=== PATIENT | male | born 1935 | race Caucasian/White ===

== ENCOUNTER → 2017-09-21 | Outpatient (RCR) | payer MEDICARE, OTHER ==
[2017-09-11 09:56] LABS: CLARITY,URINE CLEAR; COLOR,URINE YELLOW; GLUCOSE, URINE (UA) NEGATIVE (NEGATIVE); KETONES,URINE 2+ (NEGATIVE); LEUKOCYTE ESTERASE ,URINE 1+ (NEGATIVE); NITRITE,URINE NEGATIVE (NEGATIVE); PH,URINE 5 (5-9); PROTEIN,URINE 3+ (NEGATIVE); UROBILINOGEN,URINE NORMAL (NORMAL)
[2017-09-11 10:26] LABS: BILIRUBIN,URINE 1+ (NEGATIVE)
[2017-09-11 10:27] LABS: BACTERIA,URINE NEGATIVE /HPF; SQUAMOUS EPITHELIAL CELL,UR RARE /HPF
[~2017-09-21] MED LIST: ALBU8.5H2 IH; CIPR500T78 PO; WARF5TAB PO
== END | disposition home or self-care (01) ==
LOC: ONC 06-23 09:01
PROVIDERS: ATTEND Radiology Radiation Oncology
DX: Z51.0 Encounter for antineoplastic radiation therapy (principal); C61 Malignant neoplasm of prostate; R82.99 Other abnormal findings in urine
CPT/HCPCS: 77300; 77301; 77334; 77336; 77338; 77385; 77386; 81000; 87088; 99204

== ENCOUNTER 2018-09-11 14:39 | Outpatient (RCR) | payer MEDICARE, OTHER ==
[2018-08-06 15:29] LABS: INR 1.6 (0.8-1.4); PROTHROMBIN TIME PATIENT 19.9 SEC (12.2-14.7)
[2018-09-11 15:07] LABS: INR 1.2 (0.8-1.4); PROTHROMBIN TIME PATIENT 15.1 SEC (12.2-14.7)
[2018-09-21 14:22] LABS: PROTHROMBIN TIME PATIENT 35.5 SEC (12.2-14.7)
[2018-09-21 14:23] LABS: INR 3.4 (0.8-1.4)
== END 2018-11-04 | disposition home or self-care (01) ==
LOC: LAB FS 14:39
PROVIDERS: ATTEND Pediatrics
DX: I82.5Y9 Chronic embolism and thrombosis of unspecified deep veins of unspecified proximal lower extremity (principal)
CPT/HCPCS: 36415; 85610

== ENCOUNTER 2019-05-13 15:01 | Outpatient (RCR) | payer MEDICARE, OTHER ==
[2019-02-21 12:28] LABS: INR 3.7 (0.8-1.4); PROTHROMBIN TIME PATIENT 38.1 SEC (12.2-14.7)
[2019-05-13 16:00] LABS: INR 2.2 (0.8-1.4); PROTHROMBIN TIME PATIENT 25.7 SEC (12.2-14.7)
[2019-05-22] MEDS ORDERED: WARF-48 PO (15:52)
== END 2019-05-22 | disposition home or self-care (01) ==
LOC: LAB FS 15:01
PROVIDERS: ATTEND Pediatrics
DX: I82.5Y9 Chronic embolism and thrombosis of unspecified deep veins of unspecified proximal lower extremity (principal)
CPT/HCPCS: 36415; 85610

== ENCOUNTER 2019-05-22 12:37 | Inpatient (IN) | payer MEDICARE, OTHER ==
[~2019-05-22] VITALS: Ht 182 cm; Wt 101.2 kg
[2019-05-22] VITALS (7 sets, daily range): BP systolic 113–137; BP diastolic 57–84
--- NOTE | 2019-05-22 13:01 | ED General ---
General Stated Complaint: LT FOOT INJ History of Present Illness Date Seen by Provider: May 22, 2019 Time Seen by Provider: 13:00 Initial Comments Patient presenting to emergency Department for infection to his left foot. He thinks the infection started on his second toe on the top and has since spread to involve the other toes as well as his entire top of his foot and is spreading partially up his leg. He denies any fevers chills nausea vomiting or other systemic symptoms. 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 He says that he has normal sensation and can still walk on the foot. There is drainage from the top and bottom of his foot. Allergies and Home Medications Allergies Coded Allergies: Penicillins (Unverified Allergy, RASH, 05/08/13) Home Medications Albuterol 8.5 Gm Hfa.aer.ad, 1 PUFF IH Q4H PRN for SHORTNESS OF BREATH, (Reported) PRN SOB Ciprofloxacin HCl 500 Mg Tablet, 500 MG PO BID Prescribed by: MAIA LIAO on 05/16/13 1251 Patient Home Medication List Home Medication List Reviewed: Yes Review of Systems Review of Systems Constitutional: no symptoms reported EENTM: no symptoms reported Respiratory: no symptoms reported Cardiovascular: no symptoms reported Gastrointestinal: no symptoms reported Musculoskeletal: no symptoms reported Skin: other (cellulitis and abscess) Psychiatric/Neurological: No Symptoms Reported All Other Systems Reviewed Negative Unless Noted: Yes Past Ihiwwvv-Ttzuox-Agesda Hx Patient Social History Recent Foreign Travel: No Immunizations Up To Date Date of Pneumonia Vaccine: Apr 24, 2009 Date of Influenza Vaccine: Jan 22, 2013 Family Medical History Cancer 03 FATHER 03 MOTHER Family history: Diabetes mellitus 09 SISTER No Family History of: Abdominal aortic aneurysm Congenital heart disease Family history: Allergy Family history: Alzheimer's disease Family history: Arthritis Family history: Asthma Family history: Breast disease Family history: Cardiovascular disease Family history: Coronary thrombosis Family history: Gastrointestinal disease Family history: Glaucoma Family history: Hypertension Family history: Thyroid disorder Hereditary disease History of - respiratory disease Kidney disease Myocardial infarction Parkinson's disease Seizure disorder Physical Exam Vital Signs Vital Signs - First Documented 05/22/19 12:58 Temp 36.3 Pulse 84 Resp 18 B/P (MAP) 134/84 (101) Pulse Ox 96 O2 Delivery Room Air Capillary Refill : Height, Weight, BMI Height: 6'1.00" Weight: 249lbs. oz. 112.178331am; BMI Method: General Appearance: No Apparent Distress, WD/WN HEENT: PERRL/EOMI Neck: Supple Respiratory: No Respiratory Distress Cardiovascular: Regular Rate, Rhythm Gastrointestinal: Soft Back: Normal Inspection Extremity: Normal Capillary Refill (2+ dorsalis pedis pulse in both feet) Neurologic/Psychiatric: Alert, Oriented x3, No Motor/Sensory Deficits Skin: Other (cellulitis involving the top of the left foot and extends partially up his leg is warm and tender and erythematous. Wound drainage from the top of his foot between his second third toes as well as the bottom of his foot a fairly large blister. Drainage is thick and yellow and appears to be abscess drainage.) Progress/Results/Core Measures Suspected Sepsis SIRS Temperature: Pulse: Respiratory Rate: Laboratory Tests 05/22/19 13:50: White Blood Count 8.1 Blood Pressure / Mean: Laboratory Tests 05/22/19 13:50: Platelet Count 236 05/22/19 14:00: Creatinine 0.95, INR Comment 1.2, Total Bilirubin 0.5 Results/Orders Lab Results Laboratory Tests Test 05/22/19 13:50 05/22/19 14:00 Range/Units White Blood Count 8.1 4.3-11.0 10^3/uL Red Blood Count 4.34 L 4.35-5.85 10^6/uL Hemoglobin 13.2 L 13.3-17.7 G/DL Hematocrit 42 40-54 % Mean Corpuscular Volume 97 80-99 FL Mean Corpuscular Hemoglobin 30 25-34 PG Mean Corpuscular Hemoglobin Concent 32 32-36 G/DL Red Cell Distribution Width 13.6 10.0-14.5 % Platelet Count 236 130-400 10^3/uL Mean Platelet Volume 10.8 H 7.4-10.4 FL Neutrophils (%) (Auto) 77 H 42-75 % Lymphocytes (%) (Auto) 14 12-44 % Monocytes (%) (Auto) 7 0-12 % Eosinophils (%) (Auto) 2 0-10 % Basophils (%) (Auto) 0 0-10 % Neutrophils # (Auto) 6.2 1.8-7.8 X 10^3 Lymphocytes # (Auto) 1.1 1.0-4.0 X 10^3 Monocytes # (Auto) 0.6 0.0-1.0 X 10^3 Eosinophils # (Auto) 0.1 0.0-0.3 10^3/uL Basophils # (Auto) 0.0 0.0-0.1 10^3/uL Prothrombin Time 16.0 H 12.2-14.7 SEC INR Comment 1.2 0.8-1.4 Activated Partial Thromboplast Time 33 24-35 SEC Sodium Level 137 135-145 MMOL/L Potassium Level 4.5 3.6-5.0 MMOL/L Chloride Level 98 98-107 MMOL/L Carbon Dioxide Level 29 21-32 MMOL/L Anion Gap 10 5-14 MMOL/L Blood Urea Nitrogen 15 7-18 MG/DL Creatinine 0.95 0.60-1.30 MG/DL Estimat Glomerular Filtration Rate > 60 BUN/Creatinine Ratio 16 Glucose Level 163 H 70-105 MG/DL Calcium Level 9.2 8.5-10.1 MG/DL Corrected Calcium 9.7 8.5-10.1 MG/DL Total Bilirubin 0.5 0.1-1.0 MG/DL Aspartate Amino Transf (AST/SGOT) 29 5-34 U/L Alanine Aminotransferase (ALT/SGPT) 20 0-55 U/L Alkaline Phosphatase 97 40-136 U/L Total Protein 8.2 6.4-8.2 GM/DL Albumin 3.4 3.2-4.5 GM/DL My Orders Orders - TIGRE TOMAS DO Cbc With Automated Diff (05/22/19 13:15) Comprehensive Metabolic Panel (05/22/19 13:15) Blood Culture (05/22/19 13:15) Partial Thromboplastin Time (05/22/19 13:15) Protime With Inr (05/22/19 13:15) Foot 3 View Left (05/22/19 13:15) Vancomycin Injection (Vancomycin Injecti (05/22/19 13:30) Ceftriaxone For Iv Use (Rocephin For I (05/22/19 13:30) Wound Culture (05/22/19 13:00) Vancomycin Injection (Vancomycin Injecti (05/22/19 14:45) Medications Given in ED Current Medications Medications Dose Ordered Sig/Cade Route Start Time Stop Time Status Last Admin Dose Admin Ceftriaxone Sodium 2000 mg/ Sterile Water 20 ml @ 240 mls/hr ONCE ONCE IV 05/22/19 13:30 05/22/19 13:34 DC 05/22/19 14:46 240 MLS/HR Vital Signs/I&O 05/22/19 12:58 Temp 36.3 Pulse 84 Resp 18 B/P (MAP) 134/84 (101) Pulse Ox 96 O2 Delivery Room Air Capillary Refill : Progress Note : Progress Note Patient has fairly advanced cellulitis with an abscess. I do not think this will do well as an outpatient so I recommended admission for further IV antibiotics and likely surgical consultation. Patient agreed and I spoke to his primary care provider, Dr. Lara and he said he would not be able to take him at the [facility]. [place] [facility] is able to take patient and Dr. Encarnacion accepted. Patient transferred in stable condition. Departure Impression Primary Impression: Cellulitis and abscess of foot Disposition: ADMITTED INPATIENT Condition: Stable Transfer Transfer Reason: Exceeds level of care Time Spoke to Accepting Phy: 14:30 Transfer Facility: [facility] Method of Transfer: EMS Departure-Patient Inst. Referrals: ALANNAH LARA MD (PCP/Family) Primary Care Physician TIGRE TOMAS DO May 22, 2019 13:00
[2019-05-22] MEDS ORDERED: cefTRIAXone FOR IV USE 2,000 MG in WATER (STERILE) FOR INJECTION 20 ML IV ONE (13:30)
[2019-05-22] MEDS ORDERED: VANCOMYCIN INJECTION 1,000 MG in NS (IVPB) 250 ML IV SCH (13:30)
--- NOTE | 2019-05-22 13:40 | NUR ---
[id number] Pt triaged and attempted IV attempt x 4 without success, blood returns, unable to thread, and unable to flush into vein. Report to Estela STORY, Clinical Coordinator for assist with IV.
--- NOTE | 2019-05-22 14:00 | NUR ---
IV start per Alexandrea Squires RN. Labs drawn.
--- NOTE | 2019-05-22 14:04 | Diagnostic Imaging Report ---
EXAMINATION: Left foot at 1:40 p.m. INDICATION: Foot pain. Three views were obtained. There are no prior studies available for comparison. There is no fracture, dislocation or acute bony abnormality evident. The Lisfranc joint seems fairly well-maintained. There may be mild soft tissue edema over the dorsum of the forefoot. There is no radiopaque foreign body identified however. IMPRESSION: 1. There is a question of mild soft tissue edema involving the dorsum of the forefoot. Clinical follow-up is recommended. 2. There is no acute bony abnormality appreciated. Dictated by: Dictated on workstation # [id number]
[2019-05-22 14:07] LABS: WHITE BLOOD COUNT 8.1 10^3/uL (4.3-11.0)
[2019-05-22 14:08] LABS: BASOPHILS % (AUTO) 0 % (0-10); EOSINOPHILS # (AUTO) 0.1 10^3/uL (0.0-0.3); EOSINOPHILS % (AUTO) 2 % (0-10); HEMATOCRIT 42 % (40-54); HEMOGLOBIN 13.2 G/DL (13.3-17.7); LYMPHOCYTES # (AUTO) 1.1 X 10^3 (1.0-4.0); LYMPHOCYTES % (AUTO) 14 % (12-44); MEAN CORPUSCULAR HEMOGLOBIN 30 PG (25-34); MEAN CORPUSCULAR HGB CONC 32 G/DL (32-36); MEAN CORPUSCULAR VOLUME 97 FL (80-99); MEAN PLATELET VOLUME 10.8 FL (7.4-10.4); MONOCYTES # (AUTO) 0.6 X 10^3 (0.0-1.0); MONOCYTES % (AUTO) 7 % (0-12); NEUTROPHILS # (AUTO) 6.2 X 10^3 (1.8-7.8); NEUTROPHILS % (AUTO) 77 % (42-75); PLATELET COUNT 236 10^3/uL (130-400); RED CELL DISTRIBUTION WIDTH 13.6 % (10.0-14.5)
[2019-05-22 14:29] LABS: INR 1.2 (0.8-1.4)
--- NOTE | 2019-05-22 14:30 | NUR ---
[id number] Numerous calls made to [facility] to attempt speaking with a hospitalist for request for an admission. Pt wants to go to [place] as provider is Dr Parks. At the time of arrival and seeing the need for an admission the [facility] was no beds available. Numerous return calls made by RN for lack of anyone answering phone.
[2019-05-22 14:35] LABS: BILIRUBIN,TOTAL 0.5 MG/DL (0.1-1.0); BUN/CREATININE RATIO 16; CALCIUM 9.2 MG/DL (8.5-10.1); CARBON DIOXIDE 29 MMOL/L (21-32); CHLORIDE 98 MMOL/L (98-107); CREATININE SERUM 0.95 MG/DL (0.60-1.30); GFR ESTIMATED > 60; GLUCOSE 163 MG/DL (70-105); POTASSIUM 4.5 MMOL/L (3.6-5.0); SODIUM 137 MMOL/L (135-145)
--- NOTE | 2019-05-22 14:35 | NUR ---
Advised Dr Wells of Dr Parks's clinic number and need to call him. The hospitalist states Dr Parks handles all his own admissions. Dr parks was reached and declined the admit to [place] reporting he is not set up to handle this type care over there at this time. Pt was notified. Estela STORY, Clinical Coordinator called to Kerri Vizcarra RN then engineering design supervisor Laura STORY. Pt will have a bed made available at [facility] and may call the hospitalist.
[2019-05-22 14:36] LABS: ALANINE AMINOTRANSFERASE 20 U/L (0-55); ALBUMIN 3.4 GM/DL (3.2-4.5); ALKALINE PHOSPHATASE 97 U/L (40-136); TOTAL PROTEIN 8.2 GM/DL (6.4-8.2)
[2019-05-22] MEDS ORDERED: VANCOMYCIN INJECTION 1,000 MG in NS (IVPB) 250 ML IV ONE (14:45)
--- NOTE | 2019-05-22 14:45 | NUR ---
Pt pending transfer to [place]. Awaiting a room assignment and this pt is 3rd transfer out of ER and remains pending.
[2019-05-22] MEDS ORDERED: polyethylene glycoL POWDER 17 GM (MIRALAX) PACK PO PRN (15:30)
[2019-05-22] MEDS ORDERED: ONDANSETRON 4 MG (ZOFRAN) ORAL DISSOLVE TAB PO PRN (15:30)
[2019-05-22] MEDS ORDERED: ACETAMINOPHEN 325 MG TABLET PO PRN (15:30)
[2019-05-22] MEDS ORDERED: VANCOMYCIN INJECTION 0.1 MG in NS (IVPB) 250 ML IV SCH (15:30)
[2019-05-22] MEDS ORDERED: BISACODYL 10 MG SUPP (DULCOLAX) PR PRN (15:30)
[2019-05-22] MEDS ORDERED: CALCIUM CARBONATE 500 MG (TUMS) TAB.CHEW PO PRN (15:30)
--- NOTE | 2019-05-22 15:30 | NUR ---
Patient resting quietly. No visitor currently present.
[2019-05-22] MEDS ORDERED: WARF-48 PO (15:52)
--- NOTE | 2019-05-22 16:02 | NUR ---
CR 0.92; CR CL > 60; WT 100.6 KG; VANCO 2000 MG IV BOLUS THEN 1250 MG IV Q12H; TROUGH AFTER 3RD DOSE
[2019-05-22] MEDS ORDERED: VANCOMYCIN 1 GM/NS 250 ML IVPB IV NR ×4 (16:30→18:45)
--- NOTE | 2019-05-22 16:30 | NUR ---
Pending transfer, pt is resting with eyes closed and warm blanket provided. Antibiotic almost infused.
--- NOTE | 2019-05-22 17:35 | NUR ---
Pt transferred at this time to [place] [facility] per [facility]. Pt is stable. Pt has rec'd Rocephin 2 gm and Vancomycin 1 gm in ER prior.
--- NOTE | 2019-05-22 18:42 | NUR ---
REC'D PER CART VIA EMS FROM [facility] ED. RESTING COMFORTABLY. HOSPITAL PROCEDURE REVIEWED. ASSESSMENT AND ADMISSION TO BE DONE BY ONCOMING STAFF.
[2019-05-22] MEDS ORDERED: CATHETER FLUSH 10 ML SYR IV PRN (19:00)
[2019-05-22] MEDS ORDERED: warFARin 5 MG (COUMADIN) TAB PO NR (20:00)
[2019-05-22] MEDS: LACTOBACILLUS ACIDOPHILUS (PROBIOTIC) CAPSULE PO SCH (21:28)
[2019-05-22] MEDS: MELATONIN 3 MG TABLET PO PRN (21:29)
[2019-05-22] MEDS: CATHETER FLUSH 10 ML SYR IV SCH (21:34)
[2019-05-23] VITALS: BP 110/59
[2019-05-23 04:00] VITALS: BP 111/63
[2019-05-23] MEDS ORDERED: VANCOMYCIN 1250 MG/NS 250 ML IVPB IV SCH ×6 (05:00→07:00)
[2019-05-23] MEDS: CATHETER FLUSH 10 ML SYR IV SCH ×3 (06:09→22:00)
[2019-05-23] MEDS: LACTOBACILLUS ACIDOPHILUS (PROBIOTIC) CAPSULE PO SCH ×3 (06:09→18:43)
[2019-05-23 06:14] LABS: RED CELL DISTRIBUTION WIDTH 14.1 % (10.0-14.5); WHITE BLOOD COUNT 7.8 10^3/uL (4.3-11.0)
[2019-05-23 06:35] LABS: BUN/CREATININE RATIO 20; CALCIUM 8.9 MG/DL (8.5-10.1); CARBON DIOXIDE 22 MMOL/L (21-32); CHLORIDE 103 MMOL/L (98-107); CREATININE SERUM 0.82 MG/DL (0.60-1.30); GFR ESTIMATED > 60; GLUCOSE 130 MG/DL (70-105); POTASSIUM 4.1 MMOL/L (3.6-5.0); SODIUM 138 MMOL/L (135-145)
[2019-05-23 08:00] VITALS: BP 112/67
--- NOTE | 2019-05-23 08:24 | NUR ---
PATIENT VERIFIED HE TAKES WARFARIN 5MG EVERY EVENING. HE STATES HE DOES NOT TAKE ANY OTHER PRESCRIPTION MEDICATION OR ANYTHING OTC.
--- NOTE | 2019-05-23 09:53 | History & Physical-Hospitalist ---
History of Present Illness HPI/Chief Complaint Patient is an 84-year-old male with a past medical history of DVT on chronic anticoagulation who presented to the emergency department with chief complaint of left foot wound. He states the symptoms started about 2 weeks ago. He been treating with alcohol and hydrogen peroxide without improvement. He fell week ago. Since then he has been achy which he attributed to the fall. He denies any fevers or chills. He has had previous wound infections like this. He does have a wound on his right toe as well. In the emergency room he was found to have a large draining abscess with cellulitis. He did not meet any sepsis criteria. This morning her reports feeling well but weak. He denies any pain. Source: patient Date Seen 05/23/19 Time Seen by a Provider: 09:49 Attending Physician Ester Clark MD PCP Vin Parks MD Referring Physician Date of Admission May 22, 2019 at 15:00 Home Medications & Allergies Home Medications Reviewed patient Home Medication Reconciliation performed by pharmacy medication reconciliations nitriles lab technician and/or nursing. Patients Allergies have been reviewed. Allergies Allergies Coded Allergies Penicillins (Unverified Allergy, Unknown, RASH, 05/22/19) Past Babqoii-Arxfkg-Gifwho Hx Past Med/Social Hx: Reviewed Nursing Past Med/Soc Hx Patient Social History Alcohol Use: Denies Use Alcohol Beverage of Choice: Other Recreational Drug Use: No Smoking Status: Former Smoker Former Smoker, Quit: Apr 24, 2009 Physical Abuse Screen: No Sexual Abuse: No Recent Foreign Travel: No Contact w/other who traveled: No Recent Hopitalizations: No Recent Infectious Disease Expo: No Immunizations Up To Date Date of Pneumonia Vaccine: Apr 24, 2009 Date of Influenza Vaccine: Apr 24, 2019 Seasonal Allergies Seasonal Allergies: No Past Medical History Cardiac: Deep Vein Thrombosis Cancer: Prostate Did You Recieve Any Treatments: Yes What Type of Treatment Did You: Radiation History of Blood Disorders: Yes (ON COUMADIN R/T DVT) Family History Reviewed Nursing Family Hx Cancer 03 FATHER 03 MOTHER Family history: Diabetes mellitus 09 SISTER No Family History of: Abdominal aortic aneurysm Congenital heart disease Family history: Allergy Family history: Alzheimer's disease Family history: Arthritis Family history: Asthma Family history: Breast disease Family history: Cardiovascular disease Family history: Coronary thrombosis Family history: Gastrointestinal disease Family history: Glaucoma Family history: Hypertension Family history: Thyroid disorder Hereditary disease History of - respiratory disease Kidney disease Myocardial infarction Parkinson's disease Seizure disorder Review of Systems Constitutional: No chills, No fever; weakness EENTM: no symptoms reported Respiratory: No cough; short of breath (chronic) Cardiovascular: no symptoms reported Gastrointestinal: no symptoms reported Genitourinary: no symptoms reported Musculoskeletal: no symptoms reported Skin: see HPI Psychiatric/Neurological: No Symptoms Reported Physical Exam Physical Exam Vital Signs Vital Signs - First Documented 05/22/19 12:58 Temp 36.3 Pulse 84 Resp 18 B/P (MAP) 134/84 (101) Pulse Ox 96 O2 Delivery Room Air Capillary Refill : Less Than 3 SecondsLess Than 3 Seconds Height, Weight, BMI Height: 6'1.00" Weight: 249lbs. oz. 112.965781gz; 30.55 BMI Method: General Appearance: No Apparent Distress, WD/WN HEENT: Moist Mucous Membranes; No Scleral Icterus (L), No Scleral Icterus (R) Neck: Normal Inspection, Supple Respiratory: Lungs Clear, No Respiratory Distress Cardiovascular: Regular Rate, Rhythm, No Murmur Gastrointestinal: Normal Bowel Sounds, Non Tender, Soft Extremity: Other (right 2nd digit with non draining wound at tip, left foot with significant edema and draining wound) Neurologic/Psychiatric: Alert, Oriented x3, Normal Mood/Affect Skin: Normal Color, Warm/Dry Results Results/Procedures Labs Laboratory Tests 05/22/19 13:50 05/22/19 14:00 05/23/19 05:58 Patient resulted labs reviewed. Imaging: Reviewed Imaging Report Assessment/Plan Admission Diagnosis Cellulitis Admission Status: Inpatient Order (span 2 midnights) Reason for Inpatient Admission: iv abx, mri, await culutures, may need surgery Assessment and Plan Cellulitis Significant wound on left foot with draining abscess Concern for deeper infection, MRI ordered Does nto meet sepsis criteria at this time Will await blood cultures Continue IV abx Podiatry consulted, appreciate recs Discussed with Dr Ocampo who will see him in consultation history of DVT INR subtherapeutic, will continue Warfarin If need operative repair will hold Weakness PT/OT after MRI Hyperglycemia No known history of DM SSI Diagnosis/Problems Diagnosis/Problems (1) Cellulitis and abscess of foot Status: Acute (2) Weakness Status: Acute (3) Hyperglycemia Status: Acute Clinical Quality Measures DVT/VTE Risk/Contraindication: Risk Factor Score Per Nursin RFS Level Per Nursing on Admit: 4+=Very High ESTER CLARK MD May 23, 2019 09:53
[2019-05-23 12:00] VITALS: BP 108/72
[2019-05-23] MEDS: VANCOMYCIN 1250 MG/NS 250 ML IVPB IV SCH ×2 (13:22)
--- NOTE | 2019-05-23 13:53 | Diagnostic Imaging Report ---
Exam: MRI left foot without contrast. Date: May 23, 2019. Indication: 84-year-old male, left foot pain. Comparison: None. Technique: Multiple noncontrast MRI sequences of the left foot were obtained. Findings: There are limitations of the exam relating to low mdwnkt-lz-pfaez ratio, especially on the long axis STIR sequence. There is a large focal fluid collection measuring approximately 5.1 cm in proximal to distal extent, 2.7 cm in volar to dorsal extent, and 3.3 cm in transverse extent which is centered at the level of the second and third metatarsophalangeal joints. There is subtle edema-like signal in the proximal aspect of the third proximal phalanx without clear T1 marrow signal loss or bone destruction to specifically diagnose osteomyelitis. Very early findings of osteomyelitis are a consideration. There is no additional identified clear bone marrow signal abnormality. There is a trace to small first metatarsophalangeal joint effusion. There is no additional joint effusion. There is predominantly dorsal subcutaneous edema. 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 Impression: 1. Dorsal fluid collection centered at the level of the second and third metatarsophalangeal joints which is nonspecific and potentially could reflect abscess, hematoma, or other fluid collection. 2. Nonspecific low level edema-like signal in the proximal aspect of the third proximal phalanx without clear T1 marrow signal loss or bone destruction to specifically diagnose osteomyelitis. 3. Trace to small first metatarsophalangeal joint effusion. 4. 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 Dictated by: Dictated on workstation # [id number]
--- NOTE | 2019-05-23 14:30 | Physical Therapy Evaluation ---
PT Evaluation-General Medical Diagnosis Admission Date May 22, 2019 at 15:00 Medical Diagnosis: Left Foot Cellulitis Onset Date: May 22, 2019 Therapy Diagnosis Therapy Diagnosis: Deconditioning Height/Weight Height (Feet): 6 Height (Inches): 1.00 Weight (Pounds): 249 Precautions Precautions/Isolations: Fall Prevention, Standard Precautions Weight Bear Status Right Lower Extremity: Right Weight Bearing/Tolerated Left Lower Extremity: Left Weight Bearing/Tolerated Referral Physician: Eduardo Reason for Referral: Evaluation/Treatment Medical History Additional Medical History Prostate Cancer, history of DVT Current History Patient presented to ER with left foot injury. Patient states that the infection in his foot started about two weeks ago and that it was only on one toe and it has only grown. Reviewed History: Yes Social History Home: Single Level Current Living Status: Alone Entry Into Home: Level Entry PT Steps Into Home: 0 PT Steps Inside Home: 0 Prior Prior Level of Function SCALE: Activities may be completed with or without assistive devices. 7-Nipdkoaizx-qlonzud completes the activity by him/herself with no assistance from a helper. 5-Set-up or Clean-up Assistance-helper sets up or cleans up; patient completes activity. [place] assists only prior to or following the activity. 4-Supervision or Touching Assistance-helper provides verbal cues and/or touching/steadying and/or contact guard assistance as patient completes activity. Assistance may be provided throughout the activity or intermittently. 3-Partial/Moderate Assistance-helper does LESS THAN HALF the effort. [place]lock lifts, holds or supports trunk or limbs, but provides less than half the effort. 2-Substantial/Maximal Assistance-helper does MORE THAN HALF the effort. [place] lifts or holds trunk or limbs and provides more than half the effort. 6-Pvjrwqflc-vxffue does ALL the effort. Patient does none of the effort to complete the activity. Or, the assistance of 2 or more helpers is required for the patient to complete the activity. If activity was not attempted, code reason: 7-Patient Refused. 9-Not Applicable-not attempted and the patient did not perform the activity before the current illness, exacerbation or injury. 10-Not Attempted due to Environmental Limitations-(lack of equipment, weather restraints, etc.). 88-Not Attempted due to Medical Conditions or Safety Concerns. Bed Mobility: 6 Transfers (B,C,W/C): 6 Gait: 6 Indoor Mobility (Ambulation): Independent Prior Devices Use: None PT Evaluation-Current Subjective Patient is agreeable to therapy at this time and reports no pain. Pain Numeric Pain Scale: 0-No Pain Objective Patient Orientation: Normal For Age Attachments: Other-See Comments (Surgical shoe - left foot), IV ROM/Strength ROM Lower Extremities BLE WFL. Strength Lower Extremities BLE WFL Integumentary/Posture Integumentary See nursing notes Bowel Incontinence: No Bladder Incontinence: No Neuromuscular (Tone, Coordination, Reflexes) Grossly intact. Sensory Vision: Functional Hearing: Functional Sensation Right Lower Extremit: Intact Sensation Left Lower Extremity: Intact Sensation Lower Extremities Patient reports no numbness and tingling in BLE. Transfers Sit to Stand (QC): 4 (CGA for safety) Gait Does the Patient Walk?: Yes Mode of Locomotion: Walk Anticipated Mode of Locomotion: Walk Walk 10 feet (QC): 4 Walk 50 ft with 2 Turns(QC): 4 Walk 150 ft (QC): 4 Distance: 300' Gait Assistive Device: FWW Comments/Gait Description CGA for safety. Wheelchair Training Does the Pt Use a Wheelchair?: No Balance Sitting Static: Normal Sitting Dynamic: Normal Standing Static: Normal Standing Dynamic: Normal Assessment/Needs Patient walked at a decreased gait speed but was steady during gait. Patient agreed to use walker at this time since it was the first time walking with the surgical shoe on left foot. Rehab Potential: Fair PT Java Developer With Security Clearance Goals Fpc Goals PT Fpc Goals Time Frame: May 30, 2019 Roll Left & Right (QC): 6 Sit to Lying (QC): 6 Lying-Sitting on Side/Bed(QC): 6 Sit to Stand (QC): 6 Chair/Zln-wn-Ajmai Xfer(QC): 6 Toilet Transfer (QC): 6 Does the Patient Walk: Yes Walk 10 feet (QC): 6 Walk 50ft with 2 Turns (QC): 6 Walk 150 ft (QC): 6 Does the Pt use WC or Scooter?: No PT Plan Problem List Problem List: Activity Tolerance, Functional Strength, Safety, Gait, Transfer, Bed Mobility Treatment/Plan Treatment Plan: Continue Plan of Care Treatment Plan: Education, Functional Activity Nishant, Functional Strength, Gait, Safety, Therapeutic Exercise, Transfers Treatment Duration: May 31, 2019 Frequency: 6 times per week Estimated Hrs Per Day: .25 hour per day Patient and/or Family Agrees t: Yes Safety Risks/Education Patient Education: Gait Training, Transfer Techniques Teaching Recipient: Patient Teaching Methods: Discussion Response to Teaching: Reinforcement Needed Discharge Recommendations Therapy Discharge Recommendati: Home & Family Time/GCodes Time In: 1349 Time Out: 1406 Total Billed Treatment Time: 17 Total Billed Treatment 1 visit EVL 17 ESCOBAR HUERTA PT May 23, 2019 14:30
[2019-05-23] MEDS: cefTRIAXone FOR IV USE 1,000 MG in WATER (STERILE) FOR INJECTION 10 ML IV SCH (15:00)
--- NOTE | 2019-05-23 15:28 | NUR ---
CM/SS: Visited with pt and daughter as to plan for discharge Plan: Undetermined at this time. Summary: Options discussed of Skilled facility and home care. Pt has been living at home independently, prior to hospital stay. Pt's daughter encourages him to move to [place]. Pt reports he is not interested in that. Pt is open to whatever options he would benefit from. This worker will follow up with pt once a discharge plan has been determined.
[2019-05-23 16:00] VITALS: BP 117/63
--- NOTE | 2019-05-23 18:18 | Podiatry Progress Note ---
Standard Progress Note Progress Notes/Assess & Plan Date Seen by a Provider: May 23, 2019 Time Seen by a Provider: 18:16 Progress/Assessment & Plan Consult Dictated. Incision and drainage procedure tomorrow morning. Xrays ordered for right foot (chronic R2 toe wound). Final Diagnosis Neuropathy, Abscess left foot, possible osteomyelitis left 3rd toe, Unstageable ulcer right 2nd toe. CECY ESTEVEZ DPM May 23, 2019 18:18
[2019-05-23] MEDS: warFARin 5 MG (COUMADIN) TAB PO SCH (18:42)
[2019-05-23 20:00] VITALS: BP 123/58
[2019-05-23] MEDS: MELATONIN 3 MG TABLET PO PRN (20:42)
--- NOTE | 2019-05-23 21:01 | CONSULTATION REPORT ---
DATE OF SERVICE: 05/23/2019 REASON FOR CONSULTATION: Cellulitis, left foot. HISTORY OF PRESENT ILLNESS: This 84-year-old was seen in the Emergency Department in [place] and was subsequently transferred to [facility]. He has history of deep venous thrombosis on chronic anticoagulation. He said he has had an open wound or problems with the left foot for the last two weeks. He has tried topical treatment with alcohol and hydrogen peroxide without improvement. He said he fell about a week ago, I guess this might have been started this problem. He denies any current fever, chills, nausea or vomiting. He also is complaining about right second toe, which he apparently tried to trim his toenail and caused some bleeding and some disruption to the skin. He has tried to do wound care on the right second toe as well. PAST MEDICAL HISTORY: Include deep venous thrombosis, prostate cancer. He denies diabetes. ALLERGIES: He is allergic to PENICILLIN. PHYSICAL EXAMINATION: LOWER EXTREMITY EXAMINATION: The patient has 2/4 pedal pulses on the left, 1/4 dorsalis pedis pulse, and 2/4 posterior tibial pulse on the right. Light touch sensation is diminished significantly, bilateral forefoot. DERMATOLOGIC: The patient has ascending erythema extending from the forefoot to the anterior ankle and leg. There is some necrosis associated with the dorsal aspect of the left third digit. There is a significant amount of edema associated with the left forefoot. There is a probing sinus tract from the second webspace of the left foot extending approximately 4 to 5 cm with purulent discharge. There is a dry eschar to the distal aspect of the right second toe with some erythema. No proximal streaking noted. The patient has 4/5 muscle strength to the four major quadrants of the foot bilaterally. RADIOLOGY: The MRI indicated that: 1. There was a dorsal fluid collection in the center of the level of the second and third metatarsophalangeal joints, which is nonspecific and potentially could reflect abscess, hematoma or fluid collection. 2. Nonspecific low level edema like signal in the proximal aspect of the third proximal phalanx without clear T1 marrow signal loss or bone destruction to specify diagnosis of osteomyelitis. 3. Trace to small first metatarsophalangeal joint effusion. 4. 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 ASSESSMENT: 1. Deep abscess, left forefoot cellulitis, neuropathy, left foot. 2. 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 PLAN: Various treatment options were discussed with the patient and daughter today. He will be going to surgery in the morning for incision and drainage type procedure. He just finished meal and he will be taken off his Coumadin at this point. No guarantees were extended to the patient. Informed consent will be explained and signed to the patient. Today, the abscess was violated with a sterile cotton tip applicator. Some drainage was appreciated at bedside. The area was cleansed with sterile saline. A dilute Betadine soaked 4 x 4 was introduced into the lesion and dilute Betadine dressing applied with ABD and Kerlix. I ordered a three views x-rays of the right lower extremity to evaluate the right second toe. Job ID: [id number] DocumentID: [id number] Dictated Date: 05/23/2019 18:26:27 Supervisor Wet Pour Date: 05/23/2019 21:00:28 Dictated By: CECY ESTEVEZ DPM
--- NOTE | 2019-05-23 21:13 | Diagnostic Imaging Report ---
INDICATION: Chronic wound tip of the second digit. EXAMINATION: Right foot dated 05/23/2019. FINDINGS: Three views of the foot. There is diffuse irregularity seen about the distal toes, perhaps overlying gauze material obscuring fine bony detail. Flexion deformity of the second and third digits limits evaluation of the distal aspects; however, there appears to be focal irregularity or erosive change throughout the distal tip of the second phalanx and likely third distal phalanx suggesting osteomyelitis. Diffuse degenerative findings otherwise noted. IMPRESSION: 1. Suspicion of osteomyelitis in the distal tip of the second and third distal phalanges with limitations as above. 2. Not mentioned above, there may be some subcutaneous air diffusely throughout the forefoot overlying the proximal phalanges especially from the second through the fourth toes versus overlying artifact, correlate clinically. Dictated by: Dictated on workstation # [id number]
[2019-05-24] VITALS (12 sets, daily range): BP systolic 86–141; BP diastolic 57–80
[2019-05-24] MEDS: VANCOMYCIN 1250 MG/NS 250 ML IVPB IV SCH ×4 (01:00→15:39)
[2019-05-24] MEDS: CATHETER FLUSH 10 ML SYR IV SCH ×3 (03:22→21:18)
[2019-05-24] MEDS: LACTOBACILLUS ACIDOPHILUS (PROBIOTIC) CAPSULE PO SCH ×3 (03:23→18:12)
[2019-05-24 05:53] LABS: HEMOGLOBIN 11.9 G/DL (13.3-17.7); MEAN PLATELET VOLUME 9.8 FL (7.4-10.4); RED CELL DISTRIBUTION WIDTH 14.2 % (10.0-14.5)
[2019-05-24 06:06] LABS: BUN/CREATININE RATIO 16; CALCIUM 8.7 MG/DL (8.5-10.1); CARBON DIOXIDE 28 MMOL/L (21-32); CHLORIDE 103 MMOL/L (98-107); GFR ESTIMATED > 60; GLUCOSE 127 MG/DL (70-105); POTASSIUM 4.1 MMOL/L (3.6-5.0); SODIUM 139 MMOL/L (135-145)
[2019-05-24 06:08] LABS: INR 1.3 (0.8-1.4)
[2019-05-24] MEDS ORDERED: PROPOFOL INJECTION 50 ML IV ONE ×2 (10:31→12:48)
[2019-05-24] MEDS ORDERED: fentaNYL INJECTION 100 MCG/2 ML AMP ONE (10:31)
[2019-05-24] MEDS ORDERED: MIDAZOLAM 2 MG/2 ML (VERSED) VIAL ONE (10:35)
[2019-05-24] MEDS ORDERED: LIDOCAINE PF 2% 5 ML (XYLOCAINE) VIAL ONE (10:35)
[2019-05-24] MEDS ORDERED: LACTATED RINGERS 1,000 ML IV PRN (10:43)
--- NOTE | 2019-05-24 11:25 | Progress Note - Hospitalist ---
Subjective HPI/CC On Admission Date Seen by Provider: May 24, 2019 Time Seen by Provider: 11:22 Patient is an 84-year-old male with a past medical history of DVT on chronic anticoagulation who presented to the emergency department with chief complaint of left foot wound. He states the symptoms started about 2 weeks ago. He been treating with alcohol and hydrogen peroxide without improvement. He fell week ago. Since then he has been achy which he attributed to the fall. He denies any fevers or chills. He has had previous wound infections like this. He does have a wound on his right toe as well. In the emergency room he was found to have a large draining abscess with cellulitis. He did not meet any sepsis criteria. This morning her reports feeling well but weak. He denies any pain. Subjective/Events-last exam Pt reports feeling well. No complaints. Has not got to the OR yet. Objective Exam Vital Signs Vital Signs Date Time Temp Pulse Resp B/P (MAP) Pulse Ox O2 Delivery O2 Flow Rate FiO2 05/24/19 07:19 35.8 67 18 117/67 (84) 94 Room Air Capillary Refill : Less Than 3 SecondsLess Than 3 Seconds General Appearance: No Apparent Distress, WD/WN Respiratory: Lungs Clear, No Respiratory Distress Cardiovascular: Regular Rate, Rhythm, No Murmur Extremity: Other (left foot wrapped in young bandage with drainage apparant through layers of bandages, erythema noted) Neurologic/Psychiatric: Alert, Oriented x3 Results/Procedures Lab Laboratory Tests 05/24/19 05:28 Patient resulted labs reviewed. Imaging: Reviewed Imaging Report Assessment/Plan Assessment and Plan Assess & Plan/Chief Complaint Cellulitis Significant wound on left foot with draining abscess MRI shows abscess and cellulitis, osteomyelitis not ruled out Blood cultures NGTD Wound culture with staph Continue IV abx Podiatry consulted, appreciate recs OR today history of DVT Hold Warfarin until ok with Dr Ocampo Weakness PT/OT after surgery Hyperglycemia No known history of DM SSI Diagnosis/Problems Diagnosis/Problems (1) Cellulitis and abscess of foot Status: Acute (2) Weakness Status: Acute (3) Hyperglycemia Status: Acute Clinical Quality Measures DVT/VTE Risk/Contraindication: Risk Factor Score Per Nursin RFS Level Per Nursing on Admit: 4+=Very High ESTER ADAMSON MD May 24, 2019 11:25
--- NOTE | 2019-05-24 11:42 | Physical Therapy Progress Note ---
Therapy Progress Note Patient in surgery at this time. Will check back in the PM. [id number] ESCOBAR HUERTA PT May 24, 2019 11:42
[2019-05-24] MEDS ORDERED: TROUGH ORDER-PHARMACY XX NR (12:00)
[2019-05-24] MEDS ORDERED: KETAMINE/NaCl 50 MG/5 ML SYRINGE (ED ONLY) ONE (12:00)
[2019-05-24] MEDS ORDERED: ONDANSETRON 4 MG/2 ML (SDV) Z0FRAN ONE (12:04)
[2019-05-24] MEDS ORDERED: BUPIVACAINE 0.5% 30 ML (SENSORCAINE) VIAL ONE (12:19)
--- NOTE | 2019-05-24 13:26 | Progress Note-Post Operative ---
Post-Operative Progess Note Surgeon (s)/Net Developer Architect (s) Surgeon CECY ESTEVEZ DPM Net Developer Architect: None Pre-Operative Diagnosis Deep Abscess, Osteomylitis 3rd toe left Post-Operative Diagnosis Same Procedure & Operative Findings Date of Procedure 05/24/19 Procedure Performed/Findings Amputation of left 3rd toe, Incision and Drainage left foot Anesthesia Type MAC Estimated Blood Loss Estimated blood loss (mL): Minimal Specimens/Packing Specimens Removed left 3rd toe Packin/2" Iodoform CECY ESTEVEZ DPM May 24, 2019 13:26
[2019-05-24] MEDS ORDERED: HYDROcodone/APAP 5 MG/325 MG (LORTAB) TAB PO PRN (13:30)
--- NOTE | 2019-05-24 13:39 | NUR ---
"RD ASSESSMENT PMHx: DVT; CA(prostate) PT INTERACTION: Pt was awake and pleasant during nutrition assessment. Pt states current appetite is pretty good and has been for some time. Note avg PO intake of 81% h3gyyoo, per chart review. Pt states following a regular diet at home and has no issues with chewing/swallowing food. Pt states no recent issues with n/v/c/d at this time, and that his last BM was 2days ago. Note pt currently on bowel regimen of miralax PRN, per chart review. Pt states no recent wt changes. Note unable to determine recent wt hx, per chart review. Note pt has presence of wounds on left foot: 3rd toe (possible osteomyelitis), 2nd toe (unstageable ulcer), per chart review. ABNORMAL NUTRITION-RELATED LAB VALUES LOW: HIGH: glu 127 Est. kcal needs: 0746-1403 kcal | 20-25 kcal/kg Est. Pro needs: 121-152 g Pro | 1.2-1.5 g Pro/kg PES STATEMENT: Inadequate protein intake (NI-5.6.1) related to increased protein needs as evidenced by presence of wounds (L foot: 3rd toe (possible osteomyelitis), 2nd toe (unstageable ulcer) INTERVENTION: Note pt currently NPO, pending I&D procedure. Would recommend advancing diet when medically able and as tolerated. Upon diet advancement, would recommend adding Ensure HP to meals TID. Provides 160 kcal and 16 g Pro per serving for perceived benefit to wound healing. Will continue to follow and reassess as pt needs and status change. MONITOR/EVALUATE: PO Intake; Plan of Care; Hydration Status; Weight Status; Lab Values Jerrell Falcon, , RD, LD"
--- NOTE | 2019-05-24 13:40 | NUR ---
PT BACK FROM SURGERY AT THIS TIME. REPORT RECEIVED FROM PORSHA CARO. PT A/O VOICES NO COMPLAINTS OR PAIN. FOOT ELEVATED ON PILLOW. PT EDUCATED ON PARTIAL WT BEARING ON LEFT FOOT. IV INFUSING TO LEFT FA WITHOUT DIFFICULTY.
--- NOTE | 2019-05-24 13:44 | Physical Therapy Progress Note ---
Therapy Progress Note Patient is not back in room following surgery. [id number] ESCOBAR HUERTA PT May 24, 2019 13:44
[2019-05-24] MEDS: LACTATED RINGERS 1,000 ML IV SCH ×2 (13:58→20:01)
[2019-05-24] MEDS: cefTRIAXone FOR IV USE 1,000 MG in WATER (STERILE) FOR INJECTION 10 ML IV SCH (15:36)
--- NOTE | 2019-05-24 18:28 | OPERATIVE REPORT ---
DATE OF SERVICE: SURGEON: Laura Ocampo DPM. PREOPERATIVE DIAGNOSIS: Deep abscess, left foot with osteomyelitis, left third toe. POSTOPERATIVE DIAGNOSIS: Deep abscess, left foot with osteomyelitis, left third toe. PROCEDURE: Amputation of left third toe with incision and drainage of deep abscess, left foot. WOUND CLASS: Contaminated. ANESTHESIA: Monitored anesthesia care. HEMOSTASIS: Pneumatic thigh tourniquet at 300 mmHg. INDICATIONS: This 84-year-old presents with a deep abscess and infection, cellulitis to the left foot, draining abscess to the left foot. Discussion with the patient and daughter in regards to conservative and surgical options. The patient is agreeable to surgical intervention after risks and complications were discussed at length. No guarantees were extended to the patient and he is willing to proceed. DESCRIPTION OF PROCEDURE: The patient was brought back to the operating room table, placed in a secure supine position. An ankle block was performed utilizing 10 mL of 0.5% Marcaine plain. The left lower extremity thigh tourniquet was applied. The left foot was then prepped and draped in normal sterile manner. Attention was then directed to the left second web space where a draining abscess was identified and the incision was created both dorsally and plantarly along the second ray with extensive amount of purulent discharge noted in the area. There is significant necrosis noted to the dorsal aspect of the left third toe extending down to the proximal phalanx, proximal portion of the proximal phalanx. There is soft bone noted to the base of the proximal phalanx. It was then decided that an amputation of the third digit would be appropriate for wound exposure as well as removal of infected bone. The digit was sent for gross and microscopic evaluation. Deep cultures were taken at this time. Tissue sent for cultures and sensitivity bacterial as well as fungal components. A deep abscess was extending to one of the extensor tendon dorsal laterally and dorsal medially from the initial incision, which was along the mid metatarsal area. These areas were debrided of any necrotic or purulent material. Debridement continued to the plantar aspect of the second metatarsal head area where a full-thickness wound was extended to the inferior aspect of the foot. All areas were debrided thoroughly. Power pulse irrigation was performed with 4000 mL of normal saline. After pulse irrigation, swab culture was taken. Next, the wound was packed with half inch iodoform sterile 4 x 4, sterile Kerlix all secured with a Coban wrap. Prior to dressing, the tourniquet was released and no active pulsatile bleeders were identified. Postoperative instructions were given for dressing changes daily. Consult for wound care will be made. He will continue with IV antibiotics until we have a better idea of what the deep abscesses will culture out. Job ID: [id number] DocumentID: [id number] Dictated Date: 05/24/2019 13:46:57 Silk Presser Date: 05/24/2019 18:27:29 Dictated By: KOURTNEY HERNANDEZ
[2019-05-25 00:30] VITALS: BP 141/64
[2019-05-25] MEDS: LACTATED RINGERS 1,000 ML IV SCH ×2 (02:19→10:06)
[2019-05-25] MEDS: VANCOMYCIN 1250 MG/NS 250 ML IVPB IV SCH ×4 (02:55→15:07)
[2019-05-25 04:00] VITALS: BP 128/71
[2019-05-25] MEDS: CATHETER FLUSH 10 ML SYR IV SCH ×3 (04:26→21:42)
[2019-05-25] MEDS: LACTOBACILLUS ACIDOPHILUS (PROBIOTIC) CAPSULE PO SCH ×3 (06:24→17:45)
[2019-05-25 08:00] VITALS: BP 121/64
--- NOTE | 2019-05-25 10:45 | Podiatry Progress Note ---
Standard Progress Note Progress Notes/Assess & Plan Date Seen by a Provider: May 25, 2019 Time Seen by a Provider: 10:38 Progress/Assessment & Plan Post op day #1: The patient denies F/C/N/V. No foot pain. He has been partial weight bearing with walker. There is some hematogenous drainage to the left foot dressing. There is decreased erythema and edema to the left foot. No proximal streaking or mal- odor left foot. Dry eschar to the right 2nd distal toe. Some erythema present. Plan: Sterile dressing changes with dilute betadine wet-to-dry dressing left foot. Continue with IV antibiotics. Will adjust pending sensitivities. Order for bone scan to evaluate right foot. Final Diagnosis Deep abscess, cellulitis left foot, neuropathy CECY ESTEVEZ DPM May 25, 2019 10:45
--- NOTE | 2019-05-25 11:11 | NUR ---
WOUND CARE DONE AT BEDSIDE BY DR. ESTEVEZ. PT HEATHER WELL. DTRS AT BEDSIDE AND OBSERVED.
--- NOTE | 2019-05-25 11:43 | Physical Therapy Evaluation ---
PT Evaluation-General Medical Diagnosis Admission Date May 22, 2019 at 15:00 Medical Diagnosis: Left Foot Cellulitis Onset Date: May 22, 2019 Height/Weight Height (Feet): 6 Height (Inches): 1.00 Weight (Pounds): 249 Precautions Precautions/Isolations: Fall Prevention, Standard Precautions Weight Bear Status Right Lower Extremity: Right Weight Bearing/Tolerated Left Lower Extremity: Left Partial Weight Bearing Heel contact for transfers only Referral Physician: Edurado Reason for Referral: Evaluation/Treatment Medical History Reviewed History: Yes Social History Home: Single Level Current Living Status: Alone Entry Into Home: Level Entry PT Steps Into Home: 0 PT Steps Inside Home: 0 Prior Prior Level of Function SCALE: Activities may be completed with or without assistive devices. 8-Rdgczmhfzr-dmwhxlr completes the activity by him/herself with no assistance from a helper. 5-Set-up or Clean-up Assistance-helper sets up or cleans up; patient completes activity. Wideman assists only prior to or following the activity. 4-Supervision or Touching Assistance-helper provides verbal cues and/or touching/steadying and/or contact guard assistance as patient completes activity. Assistance may be provided throughout the activity or intermittently. 3-Partial/Moderate Assistance-helper does LESS THAN HALF the effort. Wideman lifts, holds or supports trunk or limbs, but provides less than half the effort. 2-Substantial/Maximal Assistance-helper does MORE THAN HALF the effort. Wideman lifts or holds trunk or limbs and provides more than half the effort. 6-Ggkmkoozp-tazzza does ALL the effort. Patient does none of the effort to complete the activity. Or, the assistance of 2 or more helpers is required for the patient to complete the activity. If activity was not attempted, code reason: 7-Patient Refused. 9-Not Applicable-not attempted and the patient did not perform the activity before the current illness, exacerbation or injury. 10-Not Attempted due to Environmental Limitations-(lack of equipment, weather restraints, etc.). 88-Not Attempted due to Medical Conditions or Safety Concerns. Indoor Mobility (Ambulation): Independent Prior Devices Use: None PT Evaluation-Current Integumentary/Posture Bowel Incontinence: No Bladder Incontinence: No Sensory Vision: Functional Hearing: Functional Sensation Right Lower Extremit: Intact Sensation Left Lower Extremity: Intact PT Detention Goals Floor Layer Tile Goals PT Detention Goals Time Frame: May 30, 2019 Roll Left & Right (QC): 6 Sit to Lying (QC): 6 Lying-Sitting on Side/Bed(QC): 6 Sit to Stand (QC): 6 Chair/Aro-xf-Wlnxw Xfer(QC): 6 Toilet Transfer (QC): 6 Does the Patient Walk: Yes Walk 10 feet (QC): 6 Walk 50ft with 2 Turns (QC): 6 Walk 150 ft (QC): 6 Does the Pt use WC or Scooter?: No PT Plan Treatment/Plan Treatment Plan: Education, Functional Activity Nishant, Functional Strength, Gait, Safety, Therapeutic Exercise, Transfers Treatment Duration: May 31, 2019 Frequency: 6 times per week Estimated Hrs Per Day: .25 hour per day Patient and/or Family Agrees t: Yes ANGEL CHACON PT May 25, 2019 11:42
--- NOTE | 2019-05-25 11:55 | Progress Note - Hospitalist ---
Subjective HPI/CC On Admission Date Seen by Provider: May 25, 2019 Time Seen by Provider: 11:50 Patient is an 84-year-old male with a past medical history of DVT on chronic anticoagulation who presented to the emergency department with chief complaint of left foot wound. He states the symptoms started about 2 weeks ago. He been treating with alcohol and hydrogen peroxide without improvement. He fell week ago. Since then he has been achy which he attributed to the fall. He denies any fevers or chills. He has had previous wound infections like this. He does have a wound on his right toe as well. In the emergency room he was found to have a large draining abscess with cellulitis. He did not meet any sepsis criteria. This morning her reports feeling well but weak. He denies any pain. Subjective/Events-last exam Pt reports doing well. No complaints. Pain controlled. Dr Ocampo at bedside and just dressed wound. Discussed culture results with family and abx choices. Objective Exam Vital Signs Vital Signs Date Time Temp Pulse Resp B/P (MAP) Pulse Ox O2 Delivery O2 Flow Rate FiO2 05/25/19 08:00 36.2 78 18 121/64 (83) 94 Room Air 05/24/19 13:20 10 Capillary Refill : Less Than 3 SecondsLess Than 3 Seconds General Appearance: No Apparent Distress, WD/WN Respiratory: Lungs Clear, No Respiratory Distress Cardiovascular: Regular Rate, Rhythm, No Murmur Gastrointestinal: Normal Bowel Sounds, Soft Extremity: Other (wound just dressed by Dr Ocampo- bandage clean and dry- I did not unwrap) Neurologic/Psychiatric: Alert, Oriented x3, Normal Mood/Affect Results/Procedures Lab Patient resulted labs reviewed. Imaging: Reviewed Imaging Report Assessment/Plan Assessment and Plan Assess & Plan/Chief Complaint Cellulitis Abscess Osteomyelitis Significant wound on left foot with draining abscess MRI shows abscess and cellulitis, osteomyelitis not ruled out Blood cultures NGTD Wound culture with staph- just discussed with micro and it is MRSA- continue vanc Podiatry consulted, appreciate recs POD #1 third toe amputation and I&D deep abscess history of DVT Resume warfarin Weakness PT/OT Hyperglycemia No known history of DM SSI A1c pending Diagnosis/Problems Diagnosis/Problems (1) Cellulitis and abscess of foot Status: Acute (2) Weakness Status: Acute (3) Hyperglycemia Status: Acute (4) 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
[2019-05-25 12:00] VITALS: BP 120/60
--- NOTE | 2019-05-25 12:00 | Physical Therapy Evaluation ---
PT Evaluation-General Medical Diagnosis Admission Date May 22, 2019 at 15:00 Medical Diagnosis: Left Foot Cellulitis Onset Date: May 22, 2019 Therapy Diagnosis Therapy Diagnosis: impaired mobility, strength, endurance Height/Weight Height (Feet): 6 Height (Inches): 1.00 Weight (Pounds): 249 Precautions Precautions/Isolations: Fall Prevention, Standard Precautions Weight Bear Status Right Lower Extremity: Right Weight Bearing/Tolerated Left Lower Extremity: Left Partial Weight Bearing Heel contact for transfers only Patient instructed on partial weight bearing and he was compliant with it during ambulation. Referral Physician: Melchor Reason for Referral: Evaluation/Treatment Medical History Additional Medical History Prostate Cancer, history of DVT Current History Current surgery on left foot, now partial weight bearing on heel. Reviewed History: Yes Social History Home: Single Level Current Living Status: Alone Entry Into Home: Level Entry, Stairs Without Railing PT Steps Into Home: 2 Prior Prior Level of Function SCALE: Activities may be completed with or without assistive devices. 5-Lukertyqwp-zgieimy completes the activity by him/herself with no assistance from a helper. 5-Set-up or Clean-up Assistance-helper sets up or cleans up; patient completes activity. [place] assists only prior to or following the activity. 4-Supervision or Touching Assistance-helper provides verbal cues and/or touching/steadying and/or contact guard assistance as patient completes activity. Assistance may be provided throughout the activity or intermittently. 3-Partial/Moderate Assistance-helper does LESS THAN HALF the effort. [place] lifts, holds or supports trunk or limbs, but provides less than half the effort. 2-Substantial/Maximal Assistance-helper does MORE THAN HALF the effort. [place] lifts or holds trunk or limbs and provides more than half the effort. 0-Vhvqbtudf-olwhxe does ALL the effort. Patient does none of the effort to complete the activity. Or, the assistance of 2 or more helpers is required for the patient to complete the activity. If activity was not attempted, code reason: 7-Patient Refused. 9-Not Applicable-not attempted and the patient did not perform the activity before the current illness, exacerbation or injury. 10-Not Attempted due to Environmental Limitations-(lack of equipment, weather restraints, etc.). 88-Not Attempted due to Medical Conditions or Safety Concerns. Bed Mobility: 6 Transfers (B,C,W/C): 6 Gait: 6 Stairs: 6 Indoor Mobility (Ambulation): Independent Stairs: Independent Prior Devices Use: None PT Evaluation-Current Subjective Patient in bed pre tx, agrees to PT, has no complaints of pain at rest. Pt/Family Goals "to get my feet to heal" Objective Patient Orientation: Person, Place, Situation Attachments: IV ROM/Strength ROM Lower Extremities WNL Strength Lower Extremities 4/5 gross BLE Integumentary/Posture Bowel Incontinence: No Bladder Incontinence: No Sensory Vision: Functional Hearing: Functional Sensation Right Lower Extremit: Impaired Sensation Left Lower Extremity: Impaired Sensation Lower Extremities impaired light touch sensation in feet. Transfers Roll Left to Right (QC): 6 Sit to Lying (QC): 6 Lying to Sitting/Side of Bed(Q: 3 Sit to Stand (QC): 4 Chair/Rra-uk-Ndsqe Xfer(QC): 4 Gait Does the Patient Walk?: Yes Mode of Locomotion: Walk Anticipated Mode of Locomotion: Walk Walk 10 feet (QC): 4 Walk 50 ft with 2 Turns(QC): 4 Distance: 80' Gait Assistive Device: FWW Comments/Gait Description CGA, slow but steady ambulation, compliant with PWB on the left side. Balance Sitting Static: Normal Sitting Dynamic: Normal Standing Static: Good Standing Dynamic: Good Treatment supine exercises BLE x15 (AP, HS) Assessment/Needs Patient has impaired mobility, strength, endurance. He is compliant with PWB on the left leg. Patient in bed post tx with nurse call, phone, tray, all needs met, family in the room. Rehab Potential: Fair PT Mcc Goals Mcc Goals PT Mcc Goals Time Frame: Jun 01, 2019 Roll Left & Right (QC): 6 Sit to Lying (QC): 6 Lying-Sitting on Side/Bed(QC): 6 Sit to Stand (QC): 6 Chair/Elk-us-Iiqjk Xfer(QC): 6 Toilet Transfer (QC): 6 Does the Patient Walk: Yes Walk 10 feet (QC): 6 Walk 50ft with 2 Turns (QC): 6 Walk 150 ft (QC): 6 Does the Pt use WC or Scooter?: No PT Plan Problem List Problem List: Activity Tolerance, Functional Strength, Safety, Balance, Gait, Transfer, Bed Mobility Treatment/Plan Treatment Plan: Continue Plan of Care Treatment Plan: Bed Mobility, Education, Functional Activity Nishant, Functional Strength, Gait, Safety, Therapeutic Exercise, Transfers Treatment Duration: Jun 01, 2019 Frequency: 6 times per week Estimated Hrs Per Day: .25 hour per day Patient and/or Family Agrees t: Yes Safety Risks/Education Patient Education: Gait Training, Transfer Techniques, Reviewed Precautions, Correct Positioning, Safety Issues Teaching Recipient: Patient Teaching Methods: Demonstration, Discussion Response to Teaching: Reinforcement Needed Discharge Recommendations Plan Patient will perform bed mobility and transfer training, balance and endurance training, functional strengthening, stair training, gait training, and education, to improve functional mobility and independence at home. Therapy Discharge Recommendati: Home & Family Time/GCodes Time In: 1117 Time Out: 1137 Total Billed Treatment Time: 20 Total Billed Treatment 1 visit EVM 20' ANGEL CHACON PT May 25, 2019 12:00
[2019-05-25] MEDS: DAKIN'S 1/2 STRENGTH (0.25%) 473 ML BTL TOP SCH (12:30)
[2019-05-25] MEDS ORDERED: TROUGH ORDER-PHARMACY XX NR (14:00)
--- NOTE | 2019-05-25 14:55 | NUR ---
VANCOMYCIN DOSING TROUGH LEVEL 14.6 - CONTINUE CURRENT DOSE OF VANC 1250 MG Q12H
[2019-05-25] MEDS: cefTRIAXone FOR IV USE 1,000 MG in WATER (STERILE) FOR INJECTION 10 ML IV SCH (15:13)
[2019-05-25 15:47] VITALS: BP 117/65
[2019-05-25] MEDS: warFARin 5 MG (COUMADIN) TAB PO SCH (17:45)
[2019-05-25 19:32] VITALS: BP 134/69
[2019-05-26] VITALS: BP 133/66
[2019-05-26] MEDS: VANCOMYCIN 1250 MG/NS 250 ML IVPB IV SCH ×4 (03:04→14:39)
[2019-05-26 04:00] VITALS: BP 142/74
[2019-05-26] MEDS: CATHETER FLUSH 10 ML SYR IV SCH ×3 (06:21→20:40)
[2019-05-26] MEDS: LACTOBACILLUS ACIDOPHILUS (PROBIOTIC) CAPSULE PO SCH ×3 (06:21→17:42)
[2019-05-26 08:00] VITALS: BP 127/60
[2019-05-26] MEDS: DAKIN'S 1/2 STRENGTH (0.25%) 473 ML BTL TOP SCH (08:17)
--- NOTE | 2019-05-26 10:02 | Progress Note - Hospitalist ---
JONATHAN DENNISON,MED STUDENT 05/26/19 1002: Subjective HPI/CC On Admission Date Seen by Provider: May 26, 2019 Time Seen by Provider: 09:46 Patient is an 84-year-old male with a past medical history of DVT on chronic anticoagulation who presented to the emergency department with chief complaint of left foot wound. He states the symptoms started about 2 weeks ago. He been treating with alcohol and hydrogen peroxide without improvement. He fell week ago. Since then he has been achy which he attributed to the fall. He denies any fevers or chills. He has had previous wound infections like this. He does have a wound on his right toe as well. In the emergency room he was found to have a large draining abscess with cellulitis. He did not meet any sepsis criteria. This morning her reports feeling well but weak. He denies any pain. Subjective/Events-last exam Patient feeling well today. Pain is well controlled. His daughter was wondering about a topical treatment for the dry skin on his legs. Also requests incentive spirometer. No other new complaints or concerns at this time. Denies fever or chills. Objective Exam Vital Signs Vital Signs Date Time Temp Pulse Resp B/P (MAP) Pulse Ox O2 Delivery O2 Flow Rate FiO2 05/26/19 12:00 36.2 68 18 110/56 (74) 93 Room Air 05/24/19 13:20 10 Capillary Refill : Less Than 3 SecondsLess Than 3 Seconds General Appearance: No Apparent Distress, WD/WN Neck: Normal Inspection, Supple Respiratory: No Accessory Muscle Use, No Respiratory Distress Cardiovascular: Regular Rate, Rhythm, No Murmur Extremity: No Calf Tenderness, No Pedal Edema, Other (bandages on bilateral feet appear clean, dry, and intact, no drainage noted) Neurologic/Psychiatric: Alert, Normal Mood/Affect, Other (sensation to light touch mildly diminished but symmetric in bilateral lower extremities) Skin: Pallor, Other (Skin of lower calves appears dry and flaky with mild excoriation where he has been scratching) Results/Procedures Lab Patient resulted labs reviewed. Imaging: Reviewed Imaging Report Assessment/Plan Assessment and Plan Assess & Plan/Chief Complaint 1. Cellulitis 2. Abscess 3. Osteomyelitis - Significant wound on left foot with draining abscess - MRI shows abscess and cellulitis, osteomyelitis not ruled out - Blood cultures NGTD - Wound culture with MRSA -- Continue IV vancomycin - Podiatry consulted and Dr. Ocampo following, appreciate recs - POD #2 left third toe amputation and I&D deep abscess - Right foot x-ray showed possible osteomyelitis of second and third toes, but Dr. Ocampo was not convinced and recommends conservative management with Betadine dressings for now. 4. History of DVT - Continue warfarin - Check INR 5. Weakness - Continue PT/OT 6. Hyperglycemia - No known history of DM - SSI - A1c of 6.2 - prediabetic range - Dietitian will see him today. No medication indicated at this time. 7. Venous stasis dermatitis - Keep skin moisturized with any emollient or barrier cream - Aquafor, vaseline, etc. Clinical Quality Measures DVT/VTE Risk/Contraindication: Risk Factor Score Per Nursin RFS Level Per Nursing on Admit: 4+=Very High ESTER CLARK MD 06/03/191952: Supervisory-Addendum Brief Verification & Attestation Participated in pt care: history, MDM, physical Personally performed: exam, history, MDM, supervision of care Care discussed with: Medical Student Procedures: n/a Results interpretation: Verified all documentation Verification and Attestation of Medical Student E/M Service A medical student performed and documented this service in my presence. I reviewed and verified all information documented by the medical student and made modifications to such information, when appropriate. I personally performed the physical exam and medical decision making. Ester Clark, Jun 03, 2019,19:53 JONATHAN DENNISON,MED STUDENT May 26, 2019 10:02 ESTER CLARK MD Jun 03, 2019 19:53
--- NOTE | 2019-05-26 10:30 | NUR ---
ASSESSMENT REVIEWED AND AGREE WITH PRECEPTOR.
[2019-05-26 12:00] VITALS: BP 110/56
[2019-05-26] MEDS: cefTRIAXone FOR IV USE 1,000 MG in WATER (STERILE) FOR INJECTION 10 ML IV SCH (14:40)
[2019-05-26 15:37] VITALS: BP 124/62
[2019-05-26] MEDS: warFARin 5 MG (COUMADIN) TAB PO SCH (17:42)
[2019-05-26 19:41] VITALS: BP 128/68
[2019-05-27] VITALS: BP 113/72
[2019-05-27] MEDS: VANCOMYCIN 1250 MG/NS 250 ML IVPB IV SCH ×4 (02:43→14:07)
[2019-05-27] MEDS: CATHETER FLUSH 10 ML SYR IV SCH ×3 (02:44→21:56)
[2019-05-27 04:00] VITALS: BP 138/85
[2019-05-27 04:48] LABS: HEMOGLOBIN 11.5 G/DL (13.3-17.7); MEAN PLATELET VOLUME 9.8 FL (7.4-10.4); RED CELL DISTRIBUTION WIDTH 13.7 % (10.0-14.5); WHITE BLOOD COUNT 4.2 10^3/uL (4.3-11.0)
[2019-05-27 05:09] LABS: INR 1.2 (0.8-1.4); PROTHROMBIN TIME PATIENT 15.6 SEC (12.2-14.7)
[2019-05-27] MEDS: LACTOBACILLUS ACIDOPHILUS (PROBIOTIC) CAPSULE PO SCH ×3 (06:33→17:21)
[2019-05-27 08:00] VITALS: BP 159/74
[2019-05-27] MEDS: DAKIN'S 1/2 STRENGTH (0.25%) 473 ML BTL TOP SCH (09:11)
--- NOTE | 2019-05-27 11:56 | Progress Note - Hospitalist ---
Subjective HPI/CC On Admission Date Seen by Provider: May 27, 2019 Time Seen by Provider: 09:00 Patient is an 84-year-old male with a past medical history of DVT on chronic anticoagulation who presented to the emergency department with chief complaint of left foot wound. He states the symptoms started about 2 weeks ago. He been treating with alcohol and hydrogen peroxide without improvement. He fell week ago. Since then he has been achy which he attributed to the fall. He denies any fevers or chills. He has had previous wound infections like this. He does have a wound on his right toe as well. In the emergency room he was found to have a large draining abscess with cellulitis. He did not meet any sepsis criteria. This morning her reports feeling well but weak. He denies any pain. Subjective/Events-last exam He reports feeling well this morning. He denies any fevers or chills. He denies any chest pain or shortness of breath. He denies any abdominal pain, nausea, or vomiting. He reports constipation. He has no other complaints or concerns. Objective Exam Vital Signs Vital Signs Date Time Temp Pulse Resp B/P (MAP) Pulse Ox O2 Delivery O2 Flow Rate FiO2 05/27/19 08:00 36.1 76 20 159/74 (102) 94 Room Air 05/27/19 08:00 10.00 Capillary Refill : Less Than 3 SecondsLess Than 3 Seconds General Appearance: No Apparent Distress, WD/WN HEENT: PERRL/EOMI, Pharynx Normal Neck: Normal Inspection, Supple Respiratory: Lungs Clear, Normal Breath Sounds, No Respiratory Distress Cardiovascular: Regular Rate, Rhythm, No Edema, No Murmur Gastrointestinal: Normal Bowel Sounds, Non Tender, Soft Extremity: Other (Bandages on bilateral feet) Neurologic/Psychiatric: Alert, No Motor/Sensory Deficits, Normal Mood/Affect; No Disoriented Skin: Normal Color, Warm/Dry Results/Procedures Lab Laboratory Tests 05/27/19 04:05 Patient resulted labs reviewed. Imaging: Reviewed Imaging Report Assessment/Plan Assessment and Plan Assess & Plan/Chief Complaint Cellulitis Abscess Osteomyelitis MRI revealed abscess and cellulitis, osteomyelitis not ruled out Blood cultures NGTD Wound culture with MRSA Continue IV vancomycin Podiatry consulted and Dr. 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
[2019-05-27 12:00] VITALS: BP 127/66
--- NOTE | 2019-05-27 12:01 | Physical Therapy Daily Note ---
PT Daily Note-Current Subjective Patient agreeable to therapy at this time. Patient reports no pain. Appearance Patient in recliner with feet up, call light and bedside table within reach. Mental Status Patient Orientation: Person, Place, Time, Situation Transfers SCALE: Activities may be completed with or without assistive devices. 5-Fnmkxirbsb-kujjepy completes the activity by him/herself with no assistance from a helper. 5-Set-up or Clean-up Assistance-helper sets up or cleans up; patient completes activity. [place] assists only prior to or following the activity. 4-Supervision or Touching Assistance-helper provides verbal cues and/or touching/steadying and/or contact guard assistance as patient completes activity. Assistance may be provided throughout the activity or intermittently. 3-Partial/Moderate Assistance-helper does LESS THAN HALF the effort. [place] lifts, holds or supports trunk or limbs, but provides less than half the effort. 2-Substantial/Maximal Assistance-helper does MORE THAN HALF the effort. [place] lifts or holds trunk or limbs and provides more than half the effort. 0-Ynojnpyxf-zbbxwc does ALL the effort. Patient does none of the effort to complete the activity. Or, the assistance of 2 or more helpers is required for the patient to complete the activity. If activity was not attempted, code reason: 7-Patient Refused. 9-Not Applicable-not attempted and the patient did not perform the activity before the current illness, exacerbation or injury. 10-Not Attempted due to Environmental Limitations-(lack of equipment, weather restraints, etc.). 88-Not Attempted due to Medical Conditions or Safety Concerns. Roll Left & Right (QC): 6 Lying to Sitting/Side of Bed(Q: 6 Sit to Stand (QC): 4 Chair/Srq-uu-Kucqi Xfer(QC): 4 Weight Bearing Right Lower Extremity: Right Weight Bearing/Tolerated Left Lower Extremity: Left Partial Weight Bearing Heel contact for transfers only Patient instructed on partial weight bearing and he was compliant with it during ambulation. Gait Training Does the Patient Walk?: Yes Distance: 300' Walk 10 feet (QC): 4 Walk 50 ft with 2 Turns(QC): 4 Walk 150 ft (QC): 4 Gait Assistive Device: FWW CGA for safety. Patient at times forgets about only putting 50% of weight through LLE and needs cueing. Wheelchair Training Does the Pt Use a Wheelchair?: No Treatments Ambulation. Transfers. Assessment Patient required cueing to maintain PWB status on LLE. Patient was stable during ambulation at a decreased speed. PT Retirement Goals Public Health Sanitarian Goals PT Retirement Goals Time Frame: Jun 01, 2019 Roll Left & Right (QC): 6 Sit to Lying (QC): 6 Lying-Sitting on Side/Bed(QC): 6 Sit to Stand (QC): 6 Chair/Qon-rj-Eepqp Xfer(QC): 6 Toilet Transfer (QC): 6 Does the Patient Walk: Yes Walk 10 feet (QC): 6 Walk 50ft with 2 Turns (QC): 6 Walk 150 ft (QC): 6 Does the Pt use WC or Scooter?: No PT Plan Problem List Problem List: Activity Tolerance, Functional Strength, Safety, Balance, Gait, Transfer Treatment/Plan Treatment Plan: Continue Plan of Care Treatment Plan: Bed Mobility, Education, Functional Activity Nishant, Functional Strength, Gait, Safety, Therapeutic Exercise, Transfers Treatment Duration: Jun 01, 2019 Frequency: 6 times per week Estimated Hrs Per Day: .25 hour per day Patient and/or Family Agrees t: Yes Safety Risks/Education Patient Education: Gait Training, Transfer Techniques Teaching Recipient: Patient Teaching Methods: Discussion Response to Teaching: Reinforcement Needed Time/GCodes Time In: 1130 Time Out: 1154 Total Billed Treatment Time: 24 Total Billed Treatment 1 visit FA x 2 (24 minutes) ESCOBAR HUERTA PT May 27, 2019 12:01
[2019-05-27] MEDS ORDERED: AQUAPHOR OINTMENT 1.75 OZ TUBE TOP PRN (12:15)
--- NOTE | 2019-05-27 14:11 | Diagnostic Imaging Report ---
INDICATION: Questionable osteomyelitis of bilateral feet. Patient was administered 26.2 mCi technetium 99m MDP intravenously and dynamic blood flow, blood pool and delayed imaging of the bilateral feet was performed. Correlation is made with x-ray of the right and left feet from 05/22 and 05/23/2019. There is asymmetric increased blood flow and blood pool activity in the left forefoot. There appears to be fairly normal blood flow and blood pool to the right foot with the exception of some mild uptake in the region of the right 2nd toe. Delayed images demonstrate some persistent abnormal uptake in the region of the distal aspect of the right 2nd toe, suspicious for osteomyelitis. There is some mild persistent uptake on the delayed images in the region of the proximal left 2nd toe. Generalized soft tissue uptake is noted which could be owing to cellulitis. IMPRESSION: Three-phase bone scan findings suspicious for osteomyelitis of the distal aspect of the right 2nd toe as well as the proximal aspect of the left 2nd toe. Dictated by: Dictated on workstation # [id number]
--- NOTE | 2019-05-27 14:25 | NUR ---
CM/SS: Visited with pt and Daughter Mellissa as to plan for discharge as per consult Plan: Pt will go to skilled facility in [place] prior to going home Summary: Pt reports doing ok. Pt's daughter Mellissa is at the bedside and reports that she would like to see pt go to a facility and then have home care and then be able to return home. Both daughters live out of state. Skilled facility placement discussed. Pt is open to going to the facility in [place]. [facility] is requested facility. Call to [facility] in [place] [phone], they report they have male openings and can possibly take pt. They request packet for review. Pt seems ok with the plan. Information faxed to [facility] for review.
[2019-05-27 16:00] VITALS: BP 140/78
[2019-05-27] MEDS: warFARin 5 MG (COUMADIN) TAB PO SCH (17:21)
--- NOTE | 2019-05-27 18:49 | Podiatry Progress Note ---
Standard Progress Note Progress Notes/Assess & Plan Date Seen by a Provider: May 27, 2019 Time Seen by a Provider: 18:46 Progress/Assessment & Plan The patient denies F/C/N/V. No foot pain. Discussed results of bone scan, which indicated osteomyelitis of the distal right 2nd toe and proximal left 2nd toe. Plan: Consent for amputation of the 2nd toe bilaterally. NPO after midnight. Continue with IV antibiotics. Final Diagnosis Osteomyelitis bilateral 2nd toe CECY ESTEVEZ DPM May 27, 2019 18:49
[2019-05-27 20:36] VITALS: BP 127/75
[2019-05-27] MEDS: BISACODYL 5 MG (DULCOLAX) TABLET PO SCH (21:55)
[2019-05-28] VITALS (10 sets, daily range): BP systolic 121–135; BP diastolic 67–84
[2019-05-28] MEDS: VANCOMYCIN 1250 MG/NS 250 ML IVPB IV SCH ×4 (02:27→16:25)
[2019-05-28] MEDS: CATHETER FLUSH 10 ML SYR IV SCH ×3 (03:48→21:12)
[2019-05-28] MEDS: LACTOBACILLUS ACIDOPHILUS (PROBIOTIC) CAPSULE PO SCH ×3 (05:21→17:36)
--- NOTE | 2019-05-28 09:06 | Physical Therapy Progress Note ---
Therapy Progress Note Patient scheduled for surgery today at 1330, hold therapy today per RN. Will reevaluate in ESCOBAR Pardo PT May 28, 2019 09:06
--- NOTE | 2019-05-28 09:16 | Progress Note - Hospitalist ---
Subjective HPI/CC On Admission Date Seen by Provider: May 28, 2019 Time Seen by Provider: 08:40 Patient is an 84-year-old male with a past medical history of DVT on chronic anticoagulation who presented to the emergency department with chief complaint of left foot wound. He states the symptoms started about 2 weeks ago. He been treating with alcohol and hydrogen peroxide without improvement. He fell week ago. Since then he has been achy which he attributed to the fall. He denies any fevers or chills. He has had previous wound infections like this. He does have a wound on his right toe as well. In the emergency room he was found to have a large draining abscess with cellulitis. He did not meet any sepsis criteria. This morning her reports feeling well but weak. He denies any pain. Subjective/Events-last exam He reports no complaints or concerns this morning. He got out of his bed and sat in the chair yesterday. He has been using his incentive spirometer sporadically. He denies any fevers or chills. He denies any chest pain or s hortness of breath. He denies any abdominal pain, nausea or vomiting. Objective Exam Vital Signs Vital Signs Date Time Temp Pulse Resp B/P (MAP) Pulse Ox O2 Delivery O2 Flow Rate FiO2 05/28/19 07:57 36.2 68 18 126/67 (86) 91 Room Air 05/27/19 08:00 10.00 Capillary Refill : Less Than 3 SecondsLess Than 3 Seconds General Appearance: No Apparent Distress, WD/WN HEENT: PERRL/EOMI, Pharynx Normal Neck: Normal Inspection, Supple Respiratory: Lungs Clear, Normal Breath Sounds, No Respiratory Distress Cardiovascular: Regular Rate, Rhythm, No Edema, No Murmur Gastrointestinal: Normal Bowel Sounds, Non Tender, Soft Extremity: Normal Inspection, Non Tender, No Pedal Edema Neurologic/Psychiatric: Alert, Oriented x3, No Motor/Sensory Deficits, Normal Mood/Affect Skin: Normal Color, Warm/Dry Results/Procedures Lab Patient resulted labs reviewed. Imaging: Reviewed Imaging Report Assessment/Plan Assessment and Plan Assess & Plan/Chief Complaint Cellulitis Abscess Osteomyelitis Bone scan suspicious for osteomyelitis Wound culture with MRSA Continue IV vancomycin Podiatry consulted and Dr. 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
[2019-05-28] MEDS: BISACODYL 5 MG (DULCOLAX) TABLET PO SCH (09:34)
[2019-05-28] MEDS: DAKIN'S 1/2 STRENGTH (0.25%) 473 ML BTL TOP SCH (09:34)
--- NOTE | 2019-05-28 09:34 | NUR ---
Did not change dressing due to surgery today
[2019-05-28] MEDS ORDERED: LIDOCAINE 1% INJ 20 ML 20 ML VIAL ONE (13:40)
[2019-05-28] MEDS ORDERED: BUPIVACAINE 0.5% 30 ML (SENSORCAINE) VIAL ONE (13:40)
--- NOTE | 2019-05-28 13:44 | Progress Note-Pre Operative ---
Pre-Operative Progress Note H&P Reviewed The H&P was reviewed, patient examined and no changes noted. Date Seen by Provider: May 28, 2019 Time Seen by Provider: 13:44 Date H&P Reviewed: May 28, 2019 Time H&P Reviewed: 13:44 Pre-Operative Diagnosis: Osteomylitis 2nd toe bilaterally CECY ESTEVEZ DPM May 28, 2019 13:44
[2019-05-28] MEDS ORDERED: proPOfol 200 MG/20 ML (DIPRIVAN) VIAL IV ONE ×2 (13:54→14:47)
[2019-05-28] MEDS ORDERED: LIDOCAINE PF 2% 5 ML (XYLOCAINE) VIAL ONE (13:54)
[2019-05-28] MEDS ORDERED: MIDAZOLAM 2 MG/2 ML (VERSED) VIAL ONE (13:54)
[2019-05-28] MEDS ORDERED: LACTATED RINGERS 1,000 ML IV SCH (14:45)
--- NOTE | 2019-05-28 16:27 | NUR ---
Pastoral care visit.
[2019-05-28] MEDS: warFARin 5 MG (COUMADIN) TAB PO SCH (17:36)
--- NOTE | 2019-05-28 19:57 | Progress Note-Post Operative ---
Post-Operative Progess Note Surgeon (s)/Senior Construction Project Manager (s) Surgeon PATRICIA PAREDES DO Senior Construction Project Manager: Dr. Ocampo Pre-Operative Diagnosis Osteomylitis 2nd toe bilaterally, possiblle left second/third metatarsal Post-Operative Diagnosis same Procedure & Operative Findings Date of Procedure 05/28/19 Procedure Performed/Findings right second toe amputation, left second toe amputation, amputation left second and third metatarsal head. Anesthesia Type mac c local Estimated Blood Loss Estimated blood loss (mL): min Specimens/Packing Specimens Removed right second toe, left second toe, 2nd and 3rd metatarsal head Packin/2" Iodoform PATRICIA PAREDES DO May 28, 2019 19:57
--- NOTE | 2019-05-28 22:12 | Podiatry Progress Note ---
Standard Progress Note Progress Notes/Assess & Plan Date Seen by a Provider: May 28, 2019 Time Seen by a Provider: 13:30 Progress/Assessment & Plan Dr. Smith and I performed the procedures today. I will be leaving tomorrow for a conference and Dr. Smith will follow the patient. Final Diagnosis Osteomyelitis of the 2nd toe bilaterally CECY ESTEVEZ DPWili May 28, 2019 22:12
--- NOTE | 2019-05-28 23:34 | OPERATIVE REPORT ---
DATE OF SERVICE: 05/28/2019 PREOPERATIVE DIAGNOSIS: Osteomyelitis, second toe bilaterally, possible left 2nd and 3rd metatarsal. POSTOPERATIVE DIAGNOSIS: Osteomyelitis, second toe bilaterally, possible left 2nd and 3rd metatarsal. PROCEDURES: Right second toe amputation, left second toe amputation, amputation of left second and third metatarsal head. SURGEON: Patricia Smith DO DIESEL ENGINE I PIPE FITTER: Dr. Ocampo. ANESTHESIA: MAC with local. ESTIMATED BLOOD LOSS: Minimal. COMPLICATIONS: None. INDICATIONS: The patient is an 84-year-old male, who previously had left third toe amputation and abscess drained and explored. The patient had a nuclear bone scan performed with the patient having osteomyelitis of the right second distal toe, osteomyelitis of the left second toe and then possible osteomyelitis of the left second and third metatarsal head. The patient understands risks and benefits of the procedure and wished to proceed with procedure. Consent was signed in the chart. DESCRIPTION OF PROCEDURE: The patient was taken to the operating suite, was prepped and draped in sterile fashion. Surgical pause was performed. Local anesthetic was used to perform blocks on both feet. An elliptical incision was made around the right second toe using cautery to dissect down to the base of the right second toe and all the attachments were then amputated and the toe was removed. Hemostasis was achieved. Using power revenue cycle administrator, copious amounts of irrigation was used to irrigate the wound. The skin and subcutaneous tissues were then sharply debrided with giving clean edges and again hemostasis was achieved. The wound again was irrigated with the power revenue cycle administrator and the skin was closed using 3-0 Prolene in a simple interrupted fashion closing the defect. The attention was then taken to the left foot, which was already opened from previous left third toe amputation and exploration. The wound was then opened, using to take the second toe, which 15 blade scalpel was used to cut the skin around the medial aspect of the second toe incorporating into the previous wound on both the dorsal and plantar portions of the foot. Cautery was then used to dissect down through the subcutaneous tissues and also all the attachments to the proximal base of the left second toe, which was then removed. The tissues were then continued to be debrided with cautery and the second and third metatarsal heads were exposed. At this point, the bone saw was then used to amputate the distal 2nd and 3rd metatarsals and going in a distal dorsal aspect to the proximal plantar portion of the bone. These were removed, the second and third metatarsal heads. More proximally, there was some tracking on the dorsal aspect of the left foot, which the skin was then opened further where this tracking was and some of the subcutaneous tissue, that was necrotic, was debrided with cautery dissection. Hemostasis again was achieved. The wound was then irrigated with the power revenue cycle administrator, copious amounts of irrigation and the wound was then packed with iodoform gauze and sterile bandages were applied. The patient tolerated the procedures well without any complications and taken to recovery room in stable condition. Job ID: [id number] DocumentID: [id number] Dictated Date: 05/28/2019 20:05:55 Roving Frame Tender Date: 05/28/2019 23:34:13 Dictated By: PATRICIA SMITH DO
[2019-05-29] VITALS: BP 126/71
[2019-05-29] MEDS: VANCOMYCIN 1250 MG/NS 250 ML IVPB IV SCH ×2 (03:25)
[2019-05-29 04:00] VITALS: BP 138/76
[2019-05-29 05:15] LABS: MEAN PLATELET VOLUME 9.5 FL (7.4-10.4); RED CELL DISTRIBUTION WIDTH 14.1 % (10.0-14.5); WHITE BLOOD COUNT 5.3 10^3/uL (4.3-11.0)
[2019-05-29 05:33] LABS: INR 1.2 (0.8-1.4)
[2019-05-29 05:42] LABS: BUN/CREATININE RATIO 20; CALCIUM 8.5 MG/DL (8.5-10.1); CARBON DIOXIDE 28 MMOL/L (21-32); CHLORIDE 105 MMOL/L (98-107); CREATININE SERUM 0.79 MG/DL (0.60-1.30); GFR ESTIMATED > 60; GLUCOSE 103 MG/DL (70-105); POTASSIUM 4.6 MMOL/L (3.6-5.0); SODIUM 141 MMOL/L (135-145)
[2019-05-29] MEDS: CATHETER FLUSH 10 ML SYR IV SCH ×3 (06:17→20:13)
[2019-05-29] MEDS: LACTOBACILLUS ACIDOPHILUS (PROBIOTIC) CAPSULE PO SCH ×3 (06:17→17:44)
--- NOTE | 2019-05-29 06:52 | Anesthesia-General Post-Op ---
General Patient Condition Mental Status/LOC: Same as Preop Cardiovascular: Satisfactory Nausea/Vomiting: Absent Respiratory: Satisfactory Pain: Controlled Complications: Absent Post Op Complications Complications None Follow Up Care/Instructions Patient Instructions None needed. Anesthesia/Patient Condition Patient Condition Patient is doing well, no complaints, stable vital signs, no apparent adverse anesthesia problems. No complications reported per nursing. [place] [facility]: JOVANA Edmond CRNA May 29, 2019 06:52
[2019-05-29] MEDS: BISACODYL 5 MG (DULCOLAX) TABLET PO SCH (08:52)
[2019-05-29] MEDS: ENOXAPARIN 40 MG/0.4 ML (LOVENOX) SYR SQ SCH (08:52)
[2019-05-29 08:56] VITALS: BP 124/60
--- NOTE | 2019-05-29 10:30 | Physical Therapy Daily Note ---
PT Daily Note-Current Subjective Patient agreeable to therapy at this time and patient reports no pain Appearance Patient in recliner with call light and bedside table within reach. Daughter present. Mental Status Patient Orientation: Normal For Age Transfers SCALE: Activities may be completed with or without assistive devices. 2-Gtchodqoac-skwnexc completes the activity by him/herself with no assistance from a helper. 5-Set-up or Clean-up Assistance-helper sets up or cleans up; patient completes activity. [place] assists only prior to or following the activity. 4-Supervision or Touching Assistance-helper provides verbal cues and/or touching/steadying and/or contact guard assistance as patient completes activity. Assistance may be provided throughout the activity or intermittently. 3-Partial/Moderate Assistance-helper does LESS THAN HALF the effort. [place] lifts, holds or supports trunk or limbs, but provides less than half the effort. 2-Substantial/Maximal Assistance-helper does MORE THAN HALF the effort. [place] lifts or holds trunk or limbs and provides more than half the effort. 2-Vccjjsout-jgyhnl does ALL the effort. Patient does none of the effort to complete the activity. Or, the assistance of 2 or more helpers is required for the patient to complete the activity. If activity was not attempted, code reason: 7-Patient Refused. 9-Not Applicable-not attempted and the patient did not perform the activity before the current illness, exacerbation or injury. 10-Not Attempted due to Environmental Limitations-(lack of equipment, weather restraints, etc.). 88-Not Attempted due to Medical Conditions or Safety Concerns. Roll Left & Right (QC): 6 Lying to Sitting/Side of Bed(Q: 3 (Patient needs assist initially to get legs up and then is able to do the rest by himself.) Sit to Stand (QC): 4 Chair/Trh-jq-Dcvui Xfer(QC): 4 Weight Bearing Right Lower Extremity: Right Weight Bearing/Tolerated Left Lower Extremity: Left Partial Weight Bearing Heel contact for transfers only Patient instructed on partial weight bearing and he was compliant with it during ambulation. Gait Training Does the Patient Walk?: Yes Distance: 200' Walk 10 feet (QC): 4 Walk 50 ft with 2 Turns(QC): 4 Walk 150 ft (QC): 4 Gait Persons Needed: 1 Gait Assistive Device: FWW CGA for safety. Patient is steady during ambulation, needs cues to maintain PWB status. Wheelchair Training Does the Pt Use a Wheelchair?: No Treatments Transfers, bed mobility, ambulation. Assessment Current Status: Fair Progress Following surgery the plan of care for patient does not change and goals remain the same. Patient is steady during ambulation but needs cues to maintain PWB s tatus. Patient needs help initially with bed mobility to get leg lifted off mattress but then is able to complete the rest of bed mobility IND. PT Hopper Feeder Goals Group Home Goals PT Hopper Feeder Goals Time Frame: Jun 01, 2019 Roll Left & Right (QC): 6 Sit to Lying (QC): 6 Lying-Sitting on Side/Bed(QC): 6 Sit to Stand (QC): 6 Chair/Gpe-tg-Gczbe Xfer(QC): 6 Toilet Transfer (QC): 6 Does the Patient Walk: Yes Walk 10 feet (QC): 6 Walk 50ft with 2 Turns (QC): 6 Walk 150 ft (QC): 6 Does the Pt use WC or Scooter?: No PT Plan Problem List Problem List: Activity Tolerance, Functional Strength, Safety, Balance, Gait, Transfer, Bed Mobility, ROM Treatment/Plan Treatment Plan: Continue Plan of Care Treatment Plan: Bed Mobility, Education, Functional Activity Nishant, Functional Strength, Gait, Safety, Therapeutic Exercise, Transfers Treatment Duration: Jun 01, 2019 Frequency: 6 times per week Estimated Hrs Per Day: .25 hour per day Patient and/or Family Agrees t: Yes Safety Risks/Education Patient Education: Gait Training, Transfer Techniques, Reviewed Precautions, Safety Issues Teaching Recipient: Patient, Family Teaching Methods: Demonstration, Discussion Response to Teaching: Reinforcement Needed Time/GCodes Time In: 1002 Time Out: 1016 Total Billed Treatment Time: 14 Total Billed Treatment 1 visit GT 14 ANGEL CHACON PT May 29, 2019 10:30
[2019-05-29] MEDS: DAKIN'S 1/2 STRENGTH (0.25%) 473 ML BTL TOP SCH (10:39)
--- NOTE | 2019-05-29 11:10 | Progress Note - Hospitalist ---
Subjective HPI/CC On Admission Date Seen by Provider: May 29, 2019 Time Seen by Provider: 09:20 Patient is an 84-year-old male with a past medical history of DVT on chronic anticoagulation who presented to the emergency department with chief complaint of left foot wound. He states the symptoms started about 2 weeks ago. He been treating with alcohol and hydrogen peroxide without improvement. He fell week ago. Since then he has been achy which he attributed to the fall. He denies any fevers or chills. He has had previous wound infections like this. He does have a wound on his right toe as well. In the emergency room he was found to have a large draining abscess with cellulitis. He did not meet any sepsis criteria. This morning her reports feeling well but weak. He denies any pain. Subjective/Events-last exam He denies any complaints or concerns. He denies any fevers or chills. Denies any chest pain or shortness of breath. He denies any abdominal pain, nausea, or vomiting. He reports that he has been up and walking. He reports that he has been using his incentive spirometer. He reports that he had a bowel movement. Objective Exam Vital Signs Vital Signs Date Time Temp Pulse Resp B/P (MAP) Pulse Ox O2 Delivery O2 Flow Rate FiO2 05/29/19 08:56 36.3 74 18 124/60 (81) 93 Room Air 05/28/19 15:30 10 Capillary Refill : Less Than 3 SecondsLess Than 3 Seconds General Appearance: No Apparent Distress, WD/WN HEENT: PERRL/EOMI, Pharynx Normal Neck: Normal Inspection, Supple Respiratory: Lungs Clear, Normal Breath Sounds, No Respiratory Distress Cardiovascular: Regular Rate, Rhythm, No Edema, No Murmur Gastrointestinal: Normal Bowel Sounds, Non Tender, Soft Extremity: Non Tender, No Pedal Edema, Other (Bandages in place on bilateral feet) Neurologic/Psychiatric: Alert, Oriented x3, No Motor/Sensory Deficits, Normal Mood/Affect Skin: Rash (Right leg) Results/Procedures Lab Laboratory Tests 05/29/19 04:40 Patient resulted labs reviewed. Imaging: Reviewed Imaging Report Assessment/Plan Assessment and Plan Assess & Plan/Chief Complaint Cellulitis Abscess Osteomyelitis Bone scan suspicious for osteomyelitis Wound culture with MRSA Underwent amputation 05/[address] 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
[2019-05-29 12:26] VITALS: BP 130/67
--- NOTE | 2019-05-29 14:42 | Diagnostic Imaging Report ---
PROCEDURE: US Bilateral lower extremity arterial. TECHNIQUE: Multiple real-time grayscale images are obtained through both lower extremity arterial systems with color Doppler imaging and color Doppler spectral analysis. INDICATION: Cellulitis of the left foot. FINDINGS: There are primarily triphasic waveforms within bilateral common femoral, superficial femoral, and popliteal arteries. Velocities are fairly symmetric bilaterally as well. Monophasic waveforms are identified in bilateral posterior tibial and dorsalis pedis arteries, but velocities are unremarkable. No high-grade stenosis or occlusion is identified. IMPRESSION: Small vessel disease below the knees with monophasic waveforms in the posterior tibial and dorsalis pedis arteries. No high-grade stenosis or occlusion is detected. Dictated by: Dictated on workstation # [id number]
--- NOTE | 2019-05-29 15:26 | Progress Note - Surgery ---
[facility] 05/29/19 1526: Subjective Date Seen by a Provider: May 29, 2019 Time Seen by a Provider: 10:40 Subjective/Events-last exam pt feeling well this AM, sitting up in recliner. Wound is in tact and denies any pain at this time. Denies fevers, chills, body aches, N/V, Diarrhea, constipation or any other sx at this time. Review of Systems General: No Chills, No Night Sweats HEENT: No Head Aches Pulmonary: No Dyspnea, No Cough Cardiovascular: No: Chest Pain, Palpitations Gastrointestinal: No: Nausea, Vomiting, Abdominal Pain, Diarrhea, Constipation Genitourinary: No Dysuria, No Incontinence Musculoskeletal: No: leg pain, foot pain Objective Exam Vital Signs Date Time Temp Pulse Resp B/P (MAP) Pulse Ox O2 Delivery O2 Flow Rate FiO2 05/29/19 12:26 36.4 67 20 130/67 (88) 94 Room Air 05/29/19 08:56 36.3 74 18 124/60 (81) 93 Room Air 05/29/19 08:00 94 Room Air 05/29/19 04:00 36.2 73 20 138/76 (96) 93 Room Air 05/29/19 00:00 36.4 70 20 126/71 (89) 93 Room Air 05/28/19 20:39 36.4 77 18 128/79 (95) 96 Room Air 05/28/19 20:00 Room Air 05/28/19 16:11 36.4 61 16 135/82 (99) 96 Room Air 05/28/19 15:45 Room Air 05/28/19 15:39 20 121/78 (92) 97 Room Air 05/28/19 15:30 20 124/81 (95) 100 OxyMask 10 05/28/19 15:25 16 129/78 (95) 100 OxyMask 10 I & O 05/29/19 07:00 Intake Total 3462.5 ml Balance 3462.5 ml Capillary Refill : Less Than 3 SecondsLess Than 3 Seconds General Appearance: No Apparent Distress, WD/WN HEENT: PERRL/EOMI, Pharynx Normal Neck: Normal Inspection, Supple Respiratory: Lungs Clear, Normal Breath Sounds, No Respiratory Distress Cardiovascular: Regular Rate, Rhythm, No Edema, No Murmur Extremity: Non Tender, No Pedal Edema, Other (R foot incision: intact sutures w/ negligable surrounding erythema & drainage. L foot open wound draining scant fluid, minimal discolouration, minimal surrounding erythema) Neurologic/Psychiatric: Alert, Oriented x3, No Motor/Sensory Deficits, Normal Mood/Affect Skin: Rash (Right leg) Results Lab Laboratory Tests 05/29/19 04:40: White Blood Count 5.3, Red Blood Count 4.04L, Hemoglobin 12.0L, Hematocrit 39L, Mean Corpuscular Volume 97, Mean Corpuscular Hemoglobin 30, Mean Corpuscular Hemoglobin Concent 31L, Red Cell Distribution Width 14.1, Platelet Count 331, Me an Platelet Volume 9.5, Prothrombin Time 16.0H, INR Comment 1.2, Sodium Level 141, Potassium Level 4.6, Chloride Level 105, Carbon Dioxide Level 28, Anion Gap 8, Blood Urea Nitrogen 16, Creatinine 0.79, Estimat Glomerular Filtration Rate > 60, BUN/Creatinine Ratio 20, Glucose Level 103, Calcium Level 8.5 Microbiology 05/28/19 Gram Stain - Final, Resulted 05/28/19 Anaerobic Culture, Resulted Pending 05/28/19 Surgical Culture - Preliminary, Resulted Culture In Progress 05/24/19 MRSA Screen - Final, Complete 05/22/19 Blood Culture - Final, Complete No growth Assessment/Plan Assessment/Plan Assessment/Plan S/P amputation of R and L second toe, w/ closed wound on R and open wound on L Post debridement and wash cultures pending Normal WBC, no fever Wound care, Pack wound w/ Iodoform gauze, and rewrap & wear protective shoes Spoke to pt and daughter about possibly doing wound vac for L foot open wound, will have wound care nurse evaluate Will order Arterial Doppler U/S of joe MCLEAN to assess blood supplely for wound healing Pt [place] living at a [place] facility after D/C Clinical Quality Measures DVT/VTE Risk/Contraindication: Risk Factor Score Per Nursin RFS Level Per Nursing on Admit: 4+=Very High MAURO SMITH DO 05/29/19 1605: Subjective Subjective/Events-last exam doing well. pain controlled. bandages intact. denies any complaints at this time. denies n/v fever sweats chills shortness of breath or chest pain. Objective Exam General Appearance: No Apparent Distress HEENT: PERRL/EOMI Neck: Normal Inspection Respiratory: Chest Non Tender, No Accessory Muscle Use, No Respiratory Distress Cardiovascular: Regular Rate, Rhythm Gastrointestinal: non tender, soft Extremity: Other (R foot incision: right 2nd toe amputation intact sutures clean dry intact no signs of infection. L foot open wound draining scant fluid, no necrotic tissue, minimal surrounding erythema) Neurologic/Psychiatric: Alert, Oriented x3, No Motor/Sensory Deficits, Normal Mood/Affect Skin: Normal Color, Warm/Dry Lymphatic: No Adenopathy Assessment/Plan Assessment/Plan Assessment/Plan S/P amputation of R and L second toe, w/ closed wound on R and open wound on L and amputation of 2nd and 3rd left metatarsals Post debridement and wash cultures pending Normal WBC, no fever considering wound vac to left foot wound u/s doppler lower ext wound care Supervisory-Addendum Brief Verification & Attestation Participated in pt care: history, MDM, physical Personally performed: exam, history, MDM, supervision of care Care discussed with: Medical Student Procedures: n/a Results interpretation: Verified all documentation Verification and Attestation of Medical Student E/M Service A medical student performed and documented this service in my presence. I reviewed and verified all information documented by the medical student and made modifications to such information, when appropriate. I personally performed the physical exam and medical decision making. Mauro Smith, May 29, 2019,16:08 [facility] May 29, 2019 15:26 MAURO SMITH DO May 29, 2019 16:05
[2019-05-29 15:31] VITALS: BP 137/79
[2019-05-29] MEDS: warFARin 5 MG (COUMADIN) TAB PO SCH (17:44)
[2019-05-29] MEDS: LINEZOLID (ZYVOX) 600 MG TAB PO SCH (20:13)
[2019-05-29 20:14] VITALS: BP 119/67
[2019-05-30 00:30] VITALS: BP 115/65
[2019-05-30 04:00] VITALS: BP 118/68
[2019-05-30] MEDS: ENOXAPARIN 40 MG/0.4 ML (LOVENOX) SYR SQ SCH (06:01)
[2019-05-30] MEDS: LACTOBACILLUS ACIDOPHILUS (PROBIOTIC) CAPSULE PO SCH ×3 (06:02→17:54)
[2019-05-30] MEDS: CATHETER FLUSH 10 ML SYR IV SCH ×3 (06:04→20:34)
[2019-05-30] MEDS: LINEZOLID (ZYVOX) 600 MG TAB PO SCH ×2 (07:56→20:33)
[2019-05-30] MEDS: BISACODYL 5 MG (DULCOLAX) TABLET PO SCH (07:56)
[2019-05-30 08:10] VITALS: BP_SYST 108; BP_SYST 122; BP_DIAS 55; BP_DIAS 61
[2019-05-30] MEDS: DAKIN'S 1/2 STRENGTH (0.25%) 473 ML BTL TOP SCH (09:13)
--- NOTE | 2019-05-30 09:58 | Physical Therapy Daily Note ---
PT Daily Note-Current Subjective Patient agreeable to therapy and reports no pain at this time. Appearance Patient in bed with call light and bedside table within reach. Daughter present. Mental Status Patient Orientation: Normal For Age Transfers SCALE: Activities may be completed with or without assistive devices. 8-Irsisstvxi-ejfqmqz completes the activity by him/herself with no assistance from a helper. 5-Set-up or Clean-up Assistance-helper sets up or cleans up; patient completes activity. [place] assists only prior to or following the activity. 4-Supervision or Touching Assistance-helper provides verbal cues and/or touching/steadying and/or contact guard assistance as patient completes activity. Assistance may be provided throughout the activity or intermittently. 3-Partial/Moderate Assistance-helper does LESS THAN HALF the effort. [place] lifts, holds or supports trunk or limbs, but provides less than half the effort. 2-Substantial/Maximal Assistance-helper does MORE THAN HALF the effort. [place] lifts or holds trunk or limbs and provides more than half the effort. 1-Kfgfnfncd-ykmtxj does ALL the effort. Patient does none of the effort to complete the activity. Or, the assistance of 2 or more helpers is required for the patient to complete the activity. If activity was not attempted, code reason: 7-Patient Refused. 9-Not Applicable-not attempted and the patient did not perform the activity before the current illness, exacerbation or injury. 10-Not Attempted due to Environmental Limitations-(lack of equipment, weather restraints, etc.). 88-Not Attempted due to Medical Conditions or Safety Concerns. Roll Left & Right (QC): 6 Sit to Lying (QC): 6 Lying to Sitting/Side of Bed(Q: 6 Sit to Stand (QC): 4 (SBA) Weight Bearing Right Lower Extremity: Right Weight Bearing/Tolerated Left Lower Extremity: Left Partial Weight Bearing Heel contact for transfers only Patient instructed on partial weight bearing and he was compliant with it during ambulation. Gait Training Does the Patient Walk?: Yes Distance: 300' Walk 10 feet (QC): 4 Walk 50 ft with 2 Turns(QC): 4 Walk 150 ft (QC): 4 Gait Persons Needed: 1 Gait Assistive Device: FWW SBA for safety. Patient is steady during ambulation. Wheelchair Training Does the Pt Use a Wheelchair?: No Treatments Bed mobility, transfers, ambulation. Assessment Current Status: Good Progress Patient is steady during ambulation and reports no pain while ambulating. Patient walks with surgical shoes on both feet. PT Snf Goals Zone Supervisor Firearms Goals PT Snf Goals Time Frame: Jun 07, 2019 Roll Left & Right (QC): 6 Sit to Lying (QC): 6 Lying-Sitting on Side/Bed(QC): 6 Sit to Stand (QC): 6 Chair/Bzv-ww-Uhwib Xfer(QC): 6 Toilet Transfer (QC): 6 Does the Patient Walk: Yes Walk 10 feet (QC): 6 Walk 50ft with 2 Turns (QC): 6 Walk 150 ft (QC): 6 Does the Pt use WC or Scooter?: No PT Plan Treatment/Plan Treatment Plan: Continue Plan of Care Treatment Plan: Bed Mobility, Education, Functional Activity Nishant, Functional Strength, Gait, Safety, Therapeutic Exercise, Transfers Treatment Duration: Jun 07, 2019 Frequency: 6 times per week Estimated Hrs Per Day: .25 hour per day Patient and/or Family Agrees t: Yes Safety Risks/Education Patient Education: Gait Training, Transfer Techniques Teaching Recipient: Patient Teaching Methods: Discussion Response to Teaching: Reinforcement Needed Time/GCodes Time In: 920 Time Out: 934 Total Billed Treatment Time: 14 Total Billed Treatment 1 visit FA 14 ESCOBAR HUERTA PT May 30, 2019 09:58
--- NOTE | 2019-05-30 10:28 | Progress Note - Surgery ---
ALEXANDRO MENDEZ [facility] 05/30/19 1028: Subjective Date Seen by a Provider: May 30, 2019 Time Seen by a Provider: 08:45 Subjective/Events-last exam Pt lying in bed comfortably. Denies any pain. Denies any other complaints at this time. Spoke to daughter and Dr. Roche, pt has been set up to continue his wound care down at [facility]. Review of Systems General: No Chills, No Night Sweats HEENT: No Head Aches, No Visual Changes Pulmonary: No Dyspnea, No Cough Cardiovascular: No: Chest Pain, Palpitations Gastrointestinal: No: Nausea, Vomiting Genitourinary: No Dysuria, No Frequency Objective Exam Vital Signs Date Time Temp Pulse Resp B/P (MAP) Pulse Ox O2 Delivery O2 Flow Rate FiO2 05/30/19 08:10 36.5 77 18 108/61 (77) 91 Room Air 05/30/19 08:00 91 Room Air 05/30/19 04:00 36.3 65 20 118/68 (85) 92 Room Air 05/30/19 00:30 36.8 69 20 115/65 (82) 94 Room Air 05/29/19 20:14 36.6 74 20 119/67 (84) 93 Room Air 05/29/19 20:00 94 Room Air 05/29/19 15:31 36.4 73 18 137/79 (98) 95 Room Air 05/29/19 12:26 36.4 67 20 130/67 (88) 94 Room Air I & O 05/30/19 07:00 Intake Total 3170 ml Balance 3170 ml Capillary Refill : Less Than 3 SecondsLess Than 3 Seconds General Appearance: No Apparent Distress HEENT: PERRL/EOMI Neck: Normal Inspection Respiratory: Chest Non Tender, No Accessory Muscle Use, No Respiratory Distress Cardiovascular: Regular Rate, Rhythm Gastrointestinal: non tender, soft Extremity: Other (R foot incision: right 2nd toe amputation intact sutures clean dry intact no signs of infection. L foot open wound draining scant fluid, no necrotic tissue, minimal surrounding erythema) Neurologic/Psychiatric: Alert, Oriented x3, No Motor/Sensory Deficits, Normal Mood/Affect Skin: Normal Color, Warm/Dry Lymphatic: No Adenopathy Results Lab Microbiology 05/28/19 Gram Stain - Final, Resulted 05/28/19 Anaerobic Culture, Resulted Pending 05/28/19 Surgical Culture - Preliminary, Resulted Culture In Progress 05/24/19 MRSA Screen - Final, Complete 05/22/19 Blood Culture - Final, Complete No growth Assessment/Plan Assessment/Plan Assessment/Plan S/P amputation of R and L second toe, w/ closed wound on R and open wound on L and amputation of 2nd and 3rd left metatarsals Post debridement and wash cultures still pending Normal WBC, no fever Has been set up to get wound vac for left foot wound u/s doppler lower ext showed small vessel dz w/ no high grade stenosis or occlusion wound care to be continued at [facility] facility Will continue Zyvox for 5 more days Estimated D/c date: today or tomorrow Clinical Quality Measures DVT/VTE Risk/Contraindication: Risk Factor Score Per Nursin RFS Level Per Nursing on Admit: 4+=Very High PATRICIA PAREDES DO 05/30/19 1049: Subjective Subjective/Events-last exam Patient pain controlled. Denies any new complaints. Denies n/v fever sweats chills shortness of breath or chest pain. Objective Exam General Appearance: No Apparent Distress HEENT: PERRL/EOMI Neck: Normal Inspection Respiratory: Chest Non Tender, No Accessory Muscle Use, No Respiratory Distress Cardiovascular: Regular Rate, Rhythm Gastrointestinal: non tender, soft Extremity: Other (R foot incision: right 2nd toe amputation intact sutures clean dry intact no signs of infection. L foot open wound, no necrotic tissue clean base) Neurologic/Psychiatric: Alert, Oriented x3, No Motor/Sensory Deficits, Normal Mood/Affect Skin: Normal Color, Warm/Dry Lymphatic: No Adenopathy Assessment/Plan Assessment/Plan Assessment/Plan S/P amputation of R and L second toe, w/ closed wound on R and open wound on L and amputation of 2nd and 3rd left metatarsals Post debridement and wash out continue wound care Zyvox lower ext doppler no high grade stenosis Supervisory-Addendum Brief Verification & Attestation Participated in pt care: history, MDM, physical Personally performed: exam, history, MDM, supervision of care Care discussed with: Medical Student Procedures: n/a Results interpretation: Verified all documentation Verification and Attestation of Medical Student E/M Service A medical student performed and documented this service in my presence. I reviewed and verified all information documented by the medical student and made modifications to such information, when appropriate. I personally performed the physical exam and medical decision making. Patricia Paredes, May 30, 2019,10:49 ALEXANDRO MENDEZ [facility] May 30, 2019 10:28 PATRICIA PAREDES DO May 30, 2019 10:49
[2019-05-30] MEDS ORDERED: AQUAP50G TOP (11:29)
[2019-05-30] MEDS ORDERED: LINE600T15 PO (11:29)
--- NOTE | 2019-05-30 11:40 | Discharge Summary ---
Discharge Summary Reconcile Patient Problems Problems Reviewed?: Yes Hospital Course Hospital Course Date of Admission: May 22, 2019 at 15:00 Admission Diagnosis : Sepsis due to osteomyelitis Family Physician/Provider: Vin Parks MD Date of Discharge: 05/30/19 Discharge Diagnosis: Sepsis due to osteomyelitis Hospital Course: River Andersen is an 84-year-old male who presented with osteomyelitis. He initially underwent a left third toe amputation with Dr. Ocampo. Further evaluation revealed more extensive osteomyelitis involving the left second toe and right second toe. He underwent an amputation with Dr. Smith. His cultures grew MRSA. He was treated with IV vancomycin while inpatient. He was transitioned to oral Zyvox on discharge and will complete a 5 day course. He underwent an evaluation for peripheral artery disease and this was negative. Wound care was consulted and plan to place a wound vac on the left foot prior to discharge. Labs and Pending Lab Test: Microbiology 05/28/19 Gram Stain - Final, Resulted 05/28/19 Anaerobic Culture, Resulted Pending 05/28/19 Surgical Culture - Preliminary, Resulted Culture In Progress 05/24/19 MRSA Screen - Final, Complete 05/22/19 Blood Culture - Final, Complete No growth Home Meds Active Aquaphor with Natural Healing (Aquaphor) 50 Gm Oint 0 Gm TOP QID PRN 7 Days Linezolid 600 Mg Tablet 600 Mg PO BID 5 Days Reported Warfarin Sodium 5 Mg Tablet 5 Mg PO 1800 Instructions to Patient/Family Assessment/Instructions Take medications as prescribed. Participate in therapies. Follow-up with your primary care physician, Dr. Parks. Follow Up Appt.: next intermediate rounds Skilled NF Admit to: [facility] Certification ([facility]) I certify that SNF services are required to be given on an inpatient basis because of the above named patient's need for [facility] care on a continuing basis for the conditions(s) for which he/she was receiving inpatient hospital services prior to his/her transfer to the SNF. Residential Facility Order: Nursing Services, [employer]-Evaluate & Treat, Physical Therapy-Evaluate & Treat, Wound Care-Eval/Treat Oxygen Delivery Method: Room Air Discharge Diet: ADA Diet Daily Activity as Tolerated: Yes Julia Denise May 30, 2019 11:32 Discharge Physical Exam General: Alert, Oriented X3, Cooperative, No Acute Distress HEENT: Atraumatic, PERRLA, EOMI, Mucous Memb Moist/[place] Lungs: Clear to Auscultation, Normal Air Movement Heart: Regular Rate, Normal S1, Normal S2, No Murmurs Abdomen: Normal Bowel Sounds, Soft, No Tenderness Extremities: No Edema, Other (Bilateral toe amputations with dressings in place) Skin: Other (Bilateral petechial leg rash right greater than left) Neuro: Normal Speech, Normal Tone Psych/Mental Status: Mental Status NL, Mood NL JULIA DENISE MD May 30, 2019 11:38
[2019-05-30 12:00] VITALS: BP 110/84
[2019-05-30 17:12] VITALS: BP 125/60
[2019-05-30] MEDS: warFARin 5 MG (COUMADIN) TAB PO SCH (17:54)
[2019-05-30 20:00] VITALS: BP 124/70
[2019-05-31 00:20] VITALS: BP 123/66
[2019-05-31 04:05] VITALS: BP 115/56
--- NOTE | 2019-05-31 05:59 | NUR ---
CM/SS: Late entry - 05-30-2019 - Visited with pt and daughter as to plan for discharge Plan: Pt will be discharged to skilled facility [facility] in [place] on Monday Summary: Pt initially was to discharge to facility on Monday and has been given the OK to discharge today 05-30-2019. Upon contacting the facility they are unable to take pt based on the previous notification of Monday, as well as staffing and transportation. Pt and daughter informed of needing to stay another day. They are ok with that. [facility] contacted and information is faxed they are to let us know a time for admission on Monday. Daughter is ok to transport pt to facility and [facility] ok with that. [facility] notifies this worker after 3pm that there fax is having some issues and gives a new fax number. Information is re-faxed to new number. 5:05pm - [facility] notifies this worker that the fax was not received on the temporary number and could it be faxed again. This worker was no longer in the building and will need to fax first things in morning. They are ok with that. They are requesting pt arrive around 10am to facility on 05-31-2019.
[2019-05-31] MEDS: LACTOBACILLUS ACIDOPHILUS (PROBIOTIC) CAPSULE PO SCH (06:16)
[2019-05-31] MEDS: CATHETER FLUSH 10 ML SYR IV SCH (06:16)
[2019-05-31] MEDS: ENOXAPARIN 40 MG/0.4 ML (LOVENOX) SYR SQ SCH (06:17)
--- NOTE | 2019-05-31 07:48 | NUR ---
This is a late entry 05/30/2019 1000 When I went to the floor to gather supplies to place wound VAC I was informed that pt was being transferred to SNF on 05/30/2019. I spoke with RN and SS about wound VAC. There was no reason to place wound VAC on 05/30/2019 if we were going to have to remove when pt was transferred to SNF. Contacted Dr and received dressing orders for discharge. Dressing orders were placed on discharge paperwork.
[2019-05-31 08:00] VITALS: BP 112/71
[2019-05-31 08:24] LABS: INR 1.3 (0.8-1.4); PROTHROMBIN TIME PATIENT 17.2 SEC (12.2-14.7)
[2019-05-31] MEDS: LINEZOLID (ZYVOX) 600 MG TAB PO SCH (08:31)
[2019-05-31] MEDS: DAKIN'S 1/2 STRENGTH (0.25%) 473 ML BTL TOP SCH (08:31)
--- NOTE | 2019-05-31 09:26 | NUR ---
CM/SS: Visited with pt as to plan for discharge Plan: Pt will discharged to [facility] today Summary: Pt's daughter will take pt to [facility] today. They expect to pt between 10:00am and 10:30am. Pt and family notified of this. RN informed and will go over discharge information.
[2019-05-31 09:40] VITALS: BP 112/71
--- NOTE | 2019-05-31 11:47 | NUR ---
CM/SS: Additional paperwork faxed to [facility] per their request. DANITZA Avilai [phone]. Paper work that they have requested was in the discharge packet. The specifics related to wound care was refaxed to facility per their request.
--- NOTE | 2019-06-03 07:07 | Physician Query Clarification ---
PQ-Conflicting Diagnosis Admission/Discharge Admission Date: May 22, 2019 at 15:00 Discharge Date: May 31, 2019 at 09:45 The medical record reflects the following clinical scenario: History/Risk Factors: Cellulitis and abscess of foot, Sepsis due to osteomyelitis Clinical Findings: Vitals on 05/22/2019 - Temp - 36.3, Pulse - 84, BP -118/57, Resp rate - 18 Lab on 05/22/2019 - WBC - 8.1 Treatment: IV vancomycin 1000 mg IV Ceftriaxone 2000mg Question: Do you agree with the impression of the Sepsis per JULIA DENISE MD Sepsis was documented only in the discharge summary without further documentation. Please document a response in Progress Note or Discharge Summary. 1. Yes, Clinically valid, Present on admission 2. Yes, Clinically valid, Not present on admission 3. No, condition ruled out 4. Other, with explanation of clinical findings 5. Clinically undetermined, no explanation for clinical findings. PHYSICIAN RESPONSE Do you agree w/Consulting Dx?: No Please remember a lack of response to the above will prompt a phone page by CDI/Coding staff. In responding to this query, please exercise your independent professional judgment. The purpose of this communication is to more accurately reflect the complexity of your patients condition. The fact that a question is asked does not imply that any particular answer is desired or expected. Thank you for your timely response to this clarification. Requestors name: [Cynthia ] Phone # [ [phone]] THIS PHYSICIAN QUERY FORM IS A PERMANENT PART OF THE MEDICAL RECORD CYNTHIA PHELPS Jun 03, 2019 07:07 EDGARD FALL Jun 12, 2019 08:05 ESTER ADAMSON MD Jun 13, 2019 11:25
== END 2019-05-31 09:45 | DRG 504 ==
LOC: EDUNIT# 12:37 → ER FS 12:38 → 4TH 15:00
PROVIDERS: ADMIT Family Medicine; ATTEND Family Medicine
PROC: 0Y6U0Z3 Detachment at Left 3rd Toe, Low, Open Approach (ICD-10-PCS; principal; 2019-05-24 11:54)
PROC: 0Y6S0Z1 Detachment at Left 2nd Toe, High, Open Approach (ICD-10-PCS; 2019-05-28)
PROC: 0Y6U0Z1 Detachment at Left 3rd Toe, High, Open Approach (ICD-10-PCS; 2019-05-28)
DX: M86.8X7 Other osteomyelitis, ankle and foot (principal); L03.116 Cellulitis of left lower limb; L02.612 Cutaneous abscess of left foot; L03.032 Cellulitis of left toe; Z86.718 Personal history of other venous thrombosis and embolism; Z79.01 Long term (current) use of anticoagulants; R73.9 Hyperglycemia, unspecified; G62.9 Polyneuropathy, unspecified; M20.41 Other hammer toe(s) (acquired), right foot; B95.61 Methicillin susceptible Staphylococcus aureus infection as the cause of diseases classified elsewhere; Z85.46 Personal history of malignant neoplasm of prostate; Z87.891 Personal history of nicotine dependence
CPT/HCPCS: 36415; 73630; 78315; 80048; 80053; 80202; 83036; 85025; 85027; 85610; 85730; 87040; 87070; 87075; 87077; 87081; 87101; 87186; 87205; 88305; 88311; 93925; 94664; 96374; 96375

== ENCOUNTER → 2019-06-01 | Outpatient (CLI) | payer MEDICARE, OTHER ==
[~2019-06-01] MED LIST changes: +AQUAP50G TOP; +LINE600T15 PO; +WARF-48 PO
--- NOTE | 2019-06-03 06:29 | Physician Query Clarification ---
PQ-Conflicting Diagnosis Admission/Discharge Admission Date: Discharge Date: MATTIECYNTHIA Jun 03, 2019 06:29
== END ==
LOC: LAB FS 16:42
PROVIDERS: ATTEND Pediatrics
DX: L03.039 Cellulitis of unspecified toe (principal); S98.212A Complete traumatic amputation of two or more left lesser toes, initial encounter; Z86.718 Personal history of other venous thrombosis and embolism; Z79.01 Long term (current) use of anticoagulants

== ENCOUNTER 2019-07-24 15:22 | Inpatient (IN) | payer MEDICARE, OTHER ==
[~2019-07-24] VITALS: Ht 185.4 cm; Wt 112.9 kg
[~2019-07-24 15:22] MED LIST changes: -LINE600T15 PO; +LNZ600T PO
[2019-07-24 15:39] VITALS: BP 138/82
[2019-07-24] MEDS ORDERED: VANCOMYCIN INJECTION 0.1 MG in NS (IVPB) 250 ML IV SCH (15:45)
--- NOTE | 2019-07-24 15:53 | NUR ---
ANGÉLICA BAE admitted to room 419-1, with an admitting diagnosis of left great toe, on 07/24/19 Dr. Smith office ambulated to hospital then staff brought patient to the floor via wheelchair, accompanied by staff .ANGÉLICA BAE introduced to surroundings, call light, bed controls, phone, TV, temperature control, lights, meal times, smoking policy, visitor policy, side rail policy, bathrooms and showers. Patient Rights given to patient in the handbook. ANGÉLICA BAE verbalizes understanding that [facility] is not responsible for the loss or damage to any personal effects or valuables that are kept in the patients posession during their hospitalization. The following Patient Care Plans and discharge were discussed with the patient. ANGÉLICA BAE verbalizes understanding of Interdisciplinary Patient Education. Patient was informed about the Rapid Response Team and its purpose.
[2019-07-24 16:06] VITALS: BP 138/82
--- OUTSIDE RECORDS SUMMARY | 2019-07-24 16:22 | XMS REPORT ---
Author Author River DONIS Organization [facility] Address [address] [place] [address] Care Team Providers Care Urban Designer Name Role Phone DESTINEE DONIS Unavailable PROBLEMS Unknown Problems ALLERGIES Substance Reaction Event Type Date Status Penicillin G Potassium nausea and vomiting Drug Allergy Jun, 201 9 Active ENCOUNTERS Encounter Location Date Diagnosis [facility] [address] [place] [facility] [place] [address] Jun, Bronchitis [facility] [address] [place] [place] [address] Jun, Eye irritation H57.89 IMMUNIZATIONS No Known Immunizations SOCIAL HISTORY Never Assessed REASON FOR VISIT cough, congestion, Pt presents today with productive cough and nasal congestion/ pt denies any fever/ pt stated he does feel like he is wheezing PLAN OF CARE Activity Details Follow Up if not improving with PCP or reg follow up Reason: VITAL SIGNS Height 74 in 2018-07-09 Weight 230 lbs 2018-07-09 Temperature 97.6 degrees Fahrenheit 2018-07-09 Heart Rate 78 bpm 2018-07-09 Oximetry 95 % 2018-07-09 BMI 29.53 kg/m2 2018-07-09 Blood pressure systolic 142 mmHg 2018-07-09 Blood pressure diastolic 80 mmHg 2018-07-09 MEDICATIONS Medication Instructions Dosage Frequency Start Date End Date Duration S tatus Azithromycin 250 MG Orally Once a day 2 tablets on the fi rst day, then 1 tablet daily for 4 days 24h Jun, 5 day(s) Active RESULTS No Results PROCEDURES Procedure Date Ordered Result Body Site [facility] VISIT ESTABLISHED PATIENT July 09, 2018 INSTRUCTIONS MEDICATIONS ADMINISTERED No Known Medications MEDICAL (GENERAL) HISTORY Type Description Date Medical History prostate cancer Surgical History prostate biopsy Hospitalization History see surgeries
--- OUTSIDE RECORDS SUMMARY | 2019-07-24 16:22 | XMS REPORT | Continuity of Care Document ---
Author Organization Unknown Address Unknown Phone Unavailable Allergies Active Description Code Type Severity Reaction Onset Reported/Identified Relationship to Patient Clinical Status Yes Penicillins [id number] Drug Aller gy Unknown RASH 05/22/2019 Medications There is no data. Problems Date Dx Coded Attending Type Code Diagnosis Diagnosed By 05/16/2013 THIEN TREJO MD Ot 600.0 0 HYPERTROPHY (BENIGN) OF PROSTATE W/O URI 05/16/2013 THIEN TREJO MD Ot V58.6 1 ANTICOAGULANTS,LT,CURRENT USE 06/23/2017 THIEN TREJO MD Ot 600.0 1 HYPERTROPHY (BENIGN) OF PROSTATE W URINA 06/23/2017 THIEN TREJO MD Ot 788.2 0 RETENTION OF URINE NOS 06/23/2017 THIEN TREJO MD Ot V72.6 3 PRE-PROCEDURAL LABORATORY EXAMINATION 06/23/2017 THIEN TREJO MD Ot V72.8 1 DPAO-TBV-MXFKNTYEV CARDIOVASCULAR 06/23/2017 THIEN TREJO MD Ot V72.8 3 EXAM PRE-OPERATIVE NEC 06/23/2017 THIEN TREJO MD Ot V74.8 SCREEN-BACTERIAL DIS NEC 07/28/2017 ALLISON MELGAR MD, Ot C61 MALIGNANT NEOPLASM OF PROSTATE 07/28/2017 THIEN TREJO MD Ot 600.0 1 HYPERTROPHY (BENIGN) OF PROSTATE W URINA 07/28/2017 THIEN TREJO MD Ot 788.2 0 RETENTION OF URINE NOS 07/28/2017 THIEN TREJO MD Ot V72.6 3 PRE-PROCEDURAL LABORATORY EXAMINATION 07/28/2017 THIEN TREJO MD Ot V72.8 1 ZVLS-KQT-MYNGSPOBB CARDIOVASCULAR 07/28/2017 THIEN TREJO MD Ot V72.8 3 EXAM PRE-OPERATIVE NEC 07/28/2017 THIEN TREJO MD Ot V74.8 SCREEN-BACTERIAL DIS NEC 07/28/2017 MELGAR MD, ALLISON E Ot C61 MALIGNANT NEOPLASM OF PROSTATE 07/28/2017 THIEN TREJO MD Ot 600.0 1 HYPERTROPHY (BENIGN) OF PROSTATE W URINA 07/28/2017 THIEN TREJO MD A Ot 788.2 0 RETENTION OF URINE NOS 07/28/2017 THIEN TREJO MD Ot V72.6 3 PRE-PROCEDURAL LABORATORY EXAMINATION 07/28/2017 THIEN TREJO MD Ot V72.8 1 OORE-DLT-VNGCZLBHI CARDIOVASCULAR 07/28/2017 THIEN TREJO MD Ot V72.8 3 EXAM PRE-OPERATIVE NEC 07/28/2017 THIEN TREJO MD Ot V74.8 SCREEN-BACTERIAL DIS NEC 07/28/2017 ALLISON MELGAR MD, Ot C61 MALIGNANT NEOPLASM OF PROSTATE 08/02/2017 THIEN TREJO MD A Ot 600.0 1 HYPERTROPHY (BENIGN) OF PROSTATE W URINA 08/02/2017 THIEN TREJO MD Ot 788.2 0 RETENTION OF URINE NOS 08/02/2017 THIEN TREJO MD Ot V72.6 3 PRE-PROCEDURAL LABORATORY EXAMINATION 08/02/2017 THIEN TREJO MD Ot V72.8 1 CJZD-MFQ-JQWXDERGQ CARDIOVASCULAR 08/02/2017 THIEN TREJO MD Ot V72.8 3 EXAM PRE-OPERATIVE NEC 08/02/2017 THIEN TREJO MD Ot V74.8 SCREEN-BACTERIAL DIS NEC 08/02/2017 ALLISON MELGAR MD Ot C61 MALIGNANT NEOPLASM OF PROSTATE 08/02/2017 THIEN TREJO MD Ot 600.0 1 HYPERTROPHY (BENIGN) OF PROSTATE W URINA 08/02/2017 THIEN TREJO MD A Ot 788.2 0 RETENTION OF URINE NOS 08/02/2017 THIEN TREJO MD A Ot V72.6 3 PRE-PROCEDURAL LABORATORY EXAMINATION 08/02/2017 THIEN TREJO MD Ot V72.8 1 ISLB-IUF-OXFFEWITW CARDIOVASCULAR 08/02/2017 THIEN TREJO MD Ot V72.8 3 EXAM PRE-OPERATIVE NEC 08/02/2017 THIEN TREJO MD Ot V74.8 SCREEN-BACTERIAL DIS NEC 08/02/2017 MELGAR MD, ALLISON E Ot C61 MALIGNANT NEOPLASM OF PROSTATE 08/16/2017 ALLISON MELGAR MD Ot C61 MALIGNANT NEOPLASM OF PROSTATE 09/21/2017 ALLISON MELGAR MD Ot C61 MALIGNANT NEOPLASM OF PROSTATE 09/21/2017 ALLISON MELGAR MD Ot R82.9 9 OTHER ABNORMAL FINDINGS IN URINE 09/21/2017 ALLISON MELGAR MD Ot Z51.0 ENCOUNTER FOR ANTINEOPLASTIC RADIATION T 09/22/2017 ALLISON MELGAR MD Ot C61 MALIGNANT NEOPLASM OF PROSTATE 09/22/2017 ALLISON MELGAR MD Ot R82.9 9 OTHER ABNORMAL FINDINGS IN URINE 09/22/2017 ALLISON MELGAR MD Ot Z51.0 ENCOUNTER FOR ANTINEOPLASTIC RADIATION T 09/25/2017 ALLISON MELGAR MD Ot C61 MALIGNANT NEOPLASM OF PROSTATE 10/26/2017 ALLISON MELGAR MD Ot C61 MALIGNANT NEOPLASM OF PROSTATE 10/26/2017 ALLISON MELGAR MD Ot Z51.0 ENCOUNTER FOR ANTINEOPLASTIC RADIATION T 12/21/2017 ALLISON MELGAR MD, Ot C61 MALIGNANT NEOPLASM OF PROSTATE 12/21/2017 ALLISON MELGAR MD Ot Z51.0 ENCOUNTER FOR ANTINEOPLASTIC RADIATION T 08/06/2018 THIEN TREJO MD Ot 600.0 1 HYPERTROPHY (BENIGN) OF PROSTATE W URINA 08/06/2018 THIEN TREJO MD Ot 788.2 0 RETENTION OF URINE NOS 08/06/2018 THIEN TREJO MD Ot V72.6 3 PRE-PROCEDURAL LABORATORY EXAMINATION 08/06/2018 THIEN TREJO MD Ot V72.8 1 GFWW-MVS-OTMOESEAO CARDIOVASCULAR 08/06/2018 THIEN TREJO MD Ot V72.8 3 EXAM PRE-OPERATIVE NEC 08/06/2018 THIEN TREJO MD Ot V74.8 SCREEN-BACTERIAL DIS NEC 08/06/2018 ALLISON MELGAR MD Ot C61 MALIGNANT NEOPLASM OF PROSTATE 08/06/2018 ALLISON MELGAR MD Ot Z51.0 ENCOUNTER FOR ANTINEOPLASTIC RADIATION T 08/09/2018 ALANNAH LARA MD Ot I82.5Y9 CHRONIC EMBLSM AND THOMBOS UNSP DEEP VN 11/04/2018 ALANNAH LARA MD Ot I82.5Y9 CHRONIC EMBLSM AND THOMBOS UNSP DEEP VN 11/19/2018 ALANNAH LARA MD Ot I82.5Y9 CHRONIC EMBLSM AND THOMBOS UNSP DEEP VN 02/28/2019 JANE FIGUEROA, ALANNAH Rasheed Ot I82.5Y9 CHRONIC EMBLSM AND THOMBOS UNSP DEEP VN 03/19/2019 JANE FIGUEROA, ALANNAH Rasheed Ot I82.5Y9 CHRONIC EMBLSM AND THOMBOS UNSP DEEP VN 05/22/2019 JANE FIGUEROA, ALANNAH Rasheed Ot I82.5Y9 CHRONIC EMBLSM AND THOMBOS UNSP DEEP VN 05/22/2019 ALLISON MELGAR MD Ot C61 MALIGNANT NEOPLASM OF PROSTATE 05/22/2019 ALLISON MELGAR MD Ot Z51.0 ENCOUNTER FOR ANTINEOPLASTIC RADIATION T 05/22/2019 JANE FIGUEROA, ALANNAH Rasheed Ot I82.5Y9 CHRONIC EMBLSM AND THOMBOS UNSP DEEP VN 05/22/2019 ALLISON MELGAR MD Ot C61 MALIGNANT NEOPLASM OF PROSTATE 05/22/2019 ALLISON MELGAR MD Ot Z51.0 ENCOUNTER FOR ANTINEOPLASTIC RADIATION T 05/23/2019 JANE FIGUEROA, ALANNAH Rasheed Ot I82.5Y9 CHRONIC EMBLSM AND THOMBOS UNSP DEEP VN 05/24/2019 ESTER ADAMSON MD Ot L02.612 CUTANEOUS ABSCESS OF LEFT FOOT 05/24/2019 ESTER ADAMSON MD Ot L03.032 CELLULITIS OF LEFT TOE 05/24/2019 ESTER ADAMSON MD Ot L03.116 CELLULITIS OF LEFT LOWER LIMB 05/24/2019 ESTER ADAMSON MD Ot 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 01 SHELTER (CURRENT) USE OF ANTICOAGULANT 05/27/2019 ESTER ADAMSON MD Ot Z86.718 PERSONAL HISTORY OF OTHER VENOUS THROMBO 05/28/2019 ALANNAH LARA MD Ot I82.5Y9 CHRONIC EMBLSM AND THOMBOS UNSP DEEP VN 05/28/2019 ESTER ADAMSON MD Ot L02.612 CUTANEOUS ABSCESS OF LEFT FOOT 05/28/2019 ESTER ADAMSON MD Ot L03.032 CELLULITIS OF LEFT TOE 05/28/2019 ESTER ADAMSON MD Ot L03.116 CELLULITIS OF LEFT LOWER LIMB 05/28/2019 ESTER ADAMSON MD Ot Z79. 01 SHELTER (CURRENT) USE OF ANTICOAGULANT 05/28/2019 ESTER ADAMSON MD Ot Z86.718 PERSONAL HISTORY OF OTHER VENOUS THROMBO 05/28/2019 ESTER ADAMSON MD Ot L02.612 CUTANEOUS ABSCESS OF LEFT FOOT 05/28/2019 ESTER ADAMSON MD Ot L03.032 CELLULITIS OF LEFT TOE 05/28/2019 ESTER ADAMSON MD Ot L03.116 CELLULITIS OF LEFT LOWER LIMB 05/28/2019 ESTER ADAMSON MD Ot Z79. 01 [employer] (CURRENT) USE OF ANTICOAGULANT 05/28/2019 ESTER ADAMSON MD Ot Z86.718 PERSONAL HISTORY OF OTHER VENOUS THROMBO 05/28/2019 ESTER ADAMSON MD Ot L02.612 CUTANEOUS ABSCESS OF LEFT FOOT 05/28/2019 ESTER ADAMSON MD Ot L03.032 CELLULITIS OF LEFT TOE 05/28/2019 ESTER ADAMSON MD Ot L03.116 CELLULITIS OF LEFT LOWER LIMB 05/28/2019 ESTER ADAMSON MD Ot Z79. 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 9 POLYNEUROPATHY, UNSPECIFIED 05/31/2019 ESTER ADAMSON MD, Ot L02.612 CUTANEOUS ABSCESS OF LEFT FOOT 05/31/2019 ESTER ADAMSON MD Ot L03.032 CELLULITIS OF LEFT TOE 05/31/2019 ESTER ADAMSON MD, Ot L03.116 CELLULITIS OF LEFT LOWER LIMB 05/31/2019 ESTER ADAMSON MD, Ot M20. 41 OTHER HAMMER TOE(S) (ACQUIRED), RIGHT FO 05/31/2019 ESTER ADAMSON MD, Ot M86.8X7 OTHER OSTEOMYELITIS, ANKLE AND FOOT 05/31/2019 ESTER ADAMSON MD, Ot R73. 9 HYPERGLYCEMIA, UNSPECIFIED 05/31/2019 ESTER ADAMSON MD, Ot Z79. 01 [employer] (CURRENT) USE OF ANTICOAGULANT 05/31/2019 ESTER ADAMSON MD Ot Z85. 46 PERSONAL HISTORY OF MALIGNANT NEOPLASM O 05/31/2019 ESTER ADAMSON MD Ot Z86.718 PERSONAL HISTORY OF OTHER VENOUS THROMBO 05/31/2019 ESTER ADAMSON MD Ot Z87.891 PERSONAL HISTORY OF NICOTINE DEPENDENCE 06/01/2019 ALLISON MELGAR MD Ot C61 MALIGNANT NEOPLASM OF PROSTATE 06/01/2019 ALLISON MELGAR MD Ot Z51.0 ENCOUNTER FOR ANTINEOPLASTIC RADIATION T 06/01/2019 Ot I82.5Y9 WILBERTO OCAMPO AND THOMBOS UNSP DEEP VN 06/01/2019 ALLISON MELGAR MD Ot C61 MALIGNANT NEOPLASM OF PROSTATE 06/01/2019 ALLISON MELGAR MD Ot Z51.0 ENCOUNTER FOR ANTINEOPLASTIC RADIATION T 06/01/2019 Ot I82.5Y9 WILBERTO OCAMPO AND THOMBOS UNSP DEEP VN 06/01/2019 ALANNAH LARA MD Ot 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 Procedures Code Description Performed By Per formed On [id number] DE TACHMENT AT LEFT 3RD TOE, LOW, OPEN AP 05/24/2019 5S6I6O9 DE TACHMENT AT LEFT 2ND TOE, HIGH, OPEN A 05/28/2019 0I9X6J3 DE TACHMENT AT LEFT 3RD TOE, HIGH, OPEN A 05/28/2019 Results Test Result Range Bacterial urine culture - 09/11/17 09:49 PT panel in platelet poor plasma by coag ulation assay - 08/06/18 15:06 Prothrombin time (PT) in platelet poor plasma by coagu lation assay 19.9 s 12.2-14.7 INR in platelet poor plasma or blood by coagulation as say 1.6 0.8-1.4 PT panel in platelet poor plasma by coag ulation assay - 09/11/18 14:49 Prothrombin time (PT) in platelet poor plasma by coagu lation assay 15.1 s 12.2-14.7 INR in platelet poor plasma or blood by coagulation as say 1.2 0.8-1.4 PT panel in platelet poor plasma by coag ulation assay - 09/21/18 14:03 Prothrombin time (PT) in platelet poor plasma by coagu lation assay 35.5 s 12.2-14.7 INR in platelet poor plasma or blood by coagulation as say 3.4 0.8-1.4 PT panel in platelet poor plasma by coag ulation assay - 02/21/19 11:43 Prothrombin time (PT) in platelet poor plasma by coagu lation assay 38.1 s 12.2-14.7 INR in platelet poor plasma or blood by coagulation as say 3.7 0.8-1.4 PT panel in platelet poor plasma by coag ulation assay - 05/13/19 15:35 Prothrombin time (PT) in platelet poor plasma by coagu lation assay 25.7 s 12.2-14.7 INR in platelet poor plasma or blood by coagulation as say 2.2 0.8-1.4 Gram stain microscopy - 05/22/19 13:14 Gram stain microscopy Few Gram positive cocci in c lusters NRG Bacteria identification in wound by cult ure - 05/22/19 13:14 Bacteria identification in wound by culture [id number] NRG FREE TEXT EXTERNAL SUSCEPTIBILITY REPORTED 05/25 12: 10 NRG QUANTITY OF GROWTH Moderate Growth NRG FREE TEXT ENTRY 2 PRELIM RAPID ID TEST AT [facility] 05/23 7:30 NRG FREE TEXT ENTRY 3 ID CONFIRMED BY RML 05/24 17:05 NRG Dirithromycin susceptibility test by dis k diffusion - 05/22/19 13:14 Oxacillin susceptibility test by minimum inhibitory co ncentration > NRG Clindamycin susceptibility test by minimum inhibitory concentration R NRG Erythromycin susceptibility test by minimum inhibitory concentration > NRG Trimethoprim/sulfamethoxazole susceptibi lity test by minimum inhibitoryconcentration <= NRG Vancomycin susceptibility test by minimum inhibitory c oncentration 1 NRG Levofloxacin susceptibility test by minimum inhibitory concentration <= NRG Rifampin susceptibility test by minimum inhibitory con centration <= NRG Cefazolin susceptibility test by minimum inhibitory co ncentration > NRG Linezolid susceptibility test by minimum inhibitory co ncentration 2 NRG Penicillin G susceptibility test by minimum inhibitory concentration > NRG Moxifloxacin susceptibility test by minimum inhibitory concentration <= NRG Minocycline susc MINERVA <= NRG Complete blood count (CBC) with automate d white blood cell (WBC) differential - 05/22/19 13:50 Blood leukocytes automated count (number/volume) 8.1 10*3/uL 4.3-11.0 Blood erythrocytes automated count (number/volume) 4.34 10*6/uL 4.35-5.85 Venous blood hemoglobin measurement (mass/volume) 13.2 g/dL 13.3-17.7 Blood hematocrit (volume fraction) 42 % 40-54 Automated erythrocyte mean corpuscular volume 97 [ foz_us] 80-99 Automated erythrocyte mean corpuscular h emoglobin (mass per erythrocyte) 30 pg 25-34 Automated erythrocyte mean corpuscular h emoglobin concentration measurement (mass/volume) 32 g/dL 32-36 Automated erythrocyte distribution width ratio 13. 6 % 10.0- 14.5 Automated blood platelet count (count/volume) 236 10*3/uL 130-400 Automated blood platelet mean volume measurement 10.8 [foz_us] 7.4-10.4 Automated blood neutrophils/100 leukocytes 77 % 42-75 Automated blood lymphocytes/100 leukocytes 14 % 12-44 Blood monocytes/100 leukocytes 7 % 0-12 Automated blood eosinophils/100 leukocytes 2 % 0-10 Automated blood basophils/100 leukocytes 0 % 0-10 Blood neutrophils automated count (number/volume) 6.2 10*3 1.8-7.8 Blood lymphocytes automated count (number/volume) 1.1 10*3 1.0-4.0 Blood monocytes automated count (number/volume) 0. 6 10*3 0.0-1.0 Automated eosinophil count 0.1 10*3/uL 0 .0-0.3 Automated blood basophil count (count/volume) 0.0 10*3/uL 0.0-0.1 PT panel in platelet poor plasma by coag ulation assay - 05/22/19 14:00 Prothrombin time (PT) in platelet poor plasma by coagu lation assay 16.0 s 12.2-14.7 INR in platelet poor plasma or blood by coagulation as say 1.2 0.8-1.4 Activated partial thromboplastin time (a PTT) in platelet poor plasma bycoagulation assay - 05/22/19 14:00 Activated partial thromboplastin time (a PTT) in platelet poor plasma bycoagulation assay 33 s 24-35 Comprehensive metabolic panel - 05/22/19 14:00 Serum or plasma sodium measurement (moles/volume) 137 mmol/L 135-145 Serum or plasma potassium measurement (moles/volume) 4.5 mmol/L 3.6-5.0 Serum or plasma chloride measurement (moles/volume) 98 mmol/L 98-107 Carbon dioxide 29 mmol/L 21-32 Serum or plasma anion gap determination (moles/volume) 10 mmol/L 5-14 Serum or plasma urea nitrogen measurement (mass/volume ) 15 mg/dL 7-18 Serum or plasma creatinine measurement (mass/volume) 0.95 mg/dL 0.60-1.30 Serum or plasma urea nitrogen/creatinine mass ratio 16 NRG Serum or plasma creatinine measurement w ith calculation of estimated glomerular filtration rate > NRG Serum or plasma glucose measurement (mass/volume) 163 mg/dL 70-105 Serum or plasma calcium measurement (mass/volume) 9.2 mg/dL 8.5-10.1 Serum or plasma total bilirubin measurement (mass/volu me) 0.5 mg/dL 0.1-1.0 Serum or plasma alkaline phosphatase andreina surement (enzymatic activity/volume) 97 U/L 40-136 Serum or plasma aspartate aminotransfera se measurement (enzymatic activity/volume) 29 U/L 5-34 Serum or plasma alanine aminotransferase measurement (enzymatic activity/volume) 20 U/L 0-55 Serum or plasma protein measurement (mass/volume) 8.2 g/dL 6.4-8.2 Serum or plasma albumin measurement (mass/volume) 3.4 g/dL 3.2-4.5 CALCIUM CORRECTED 9.7 mg/dL 8.5-10.1 Bacterial blood culture - 05/22/19 14:00 Bacterial blood culture NG NRG Bacterial blood culture - 05/22/19 14:20 Bacterial blood culture NG NRG Automated blood complete blood count (he mogram) panel - 05/23/19 05:58 Blood leukocytes automated count (number/volume) 7.8 10*3/uL 4.3-11.0 Blood erythrocytes automated count (number/volume) 4.00 10*6/uL 4.35-5.85 Venous blood hemoglobin measurement (mass/volume) 12.0 g/dL 13.3-17.7 Blood hematocrit (volume fraction) 38 % 40-54 Automated erythrocyte mean corpuscular volume 96 [ foz_us] 80-99 Automated erythrocyte mean corpuscular h emoglobin (mass per erythrocyte) 30 pg 25-34 Automated erythrocyte mean corpuscular h emoglobin concentration measurement (mass/volume) 31 g/dL 32-36 Automated erythrocyte distribution width ratio 14. 1 % 10.0- 14.5 Automated blood platelet count (count/volume) 281 10*3/uL 130-400 Automated blood platelet mean volume measurement 10.0 [foz_us] 7.4-10.4 Whole blood basic metabolic panel - 04/26 05:58 Serum or plasma sodium measurement (moles/volume) 138 mmol/L 135-145 Serum or plasma potassium measurement (moles/volume) 4.1 mmol/L 3.6-5.0 Serum or plasma chloride measurement (moles/volume) 103 mmol/L 98-107 Carbon dioxide 22 mmol/L 21-32 Serum or plasma anion gap determination (moles/volume) 13 mmol/L 5-14 Serum or plasma urea nitrogen measurement (mass/volume ) 16 mg/dL 7-18 Serum or plasma creatinine measurement (mass/volume) 0.82 mg/dL 0.60-1.30 Serum or plasma urea nitrogen/creatinine mass ratio 20 NRG Serum or plasma creatinine measurement w ith calculation of estimated glomerular filtration rate > NRG Serum or plasma glucose measurement (mass/volume) 130 mg/dL 70-105 Serum or plasma calcium measurement (mass/volume) 8.9 mg/dL 8.5-10.1 Hemoglobin A1c measurement - 05/23/19 05 :58 Blood hemoglobin A1C measurement (mass/volume) 6.2 % 4.0-5.6 MEAN BLOOD GLUCOSE 131 % <=126 Methicillin resistant Staphylococcus aur eus (MRSA) screening culture - 05/24/19 03:20 MRSA SCREEN RESULT MRSA ISOLATED NRG Automated blood complete blood count (he mogram) panel - 05/24/19 05:28 Blood leukocytes automated count (number/volume) 6.0 10*3/uL 4.3-11.0 Blood erythrocytes automated count (number/volume) 3.96 10*6/uL 4.35-5.85 Venous blood hemoglobin measurement (mass/volume) 11.9 g/dL 13.3-17.7 Blood hematocrit (volume fraction) 38 % 40-54 Automated erythrocyte mean corpuscular volume 96 [ foz_us] 80-99 Automated erythrocyte mean corpuscular h emoglobin (mass per erythrocyte) 30 pg 25-34 Automated erythrocyte mean corpuscular h emoglobin concentration measurement (mass/volume) 31 g/dL 32-36 Automated erythrocyte distribution width ratio 14. 2 % 10.0- 14.5 Automated blood platelet count (count/volume) 301 10*3/uL 130-400 Automated blood platelet mean volume measurement 9.8 [foz_us] 7.4-10.4 Whole blood basic metabolic panel - 04/26 05/13 05:28 Serum or plasma sodium measurement (moles/volume) 139 mmol/L 135-145 Serum or plasma potassium measurement (moles/volume) 4.1 mmol/L 3.6-5.0 Serum or plasma chloride measurement (moles/volume) 103 mmol/L 98-107 Carbon dioxide 28 mmol/L 21-32 Serum or plasma anion gap determination (moles/volume) 8 mmol/L 5-14 Serum or plasma urea nitrogen measurement (mass/volume ) 13 mg/dL 7-18 Serum or plasma creatinine measurement (mass/volume) 0.80 mg/dL 0.60-1.30 Serum or plasma urea nitrogen/creatinine mass ratio 16 NRG Serum or plasma creatinine measurement w ith calculation of estimated glomerular filtration rate > NRG Serum or plasma glucose measurement (mass/volume) 127 mg/dL 70-105 Serum or plasma calcium measurement (mass/volume) 8.7 mg/dL 8.5-10.1 PT panel in platelet poor plasma by coag ulation assay - 05/24/19 05:28 Prothrombin time (PT) in platelet poor plasma by coagu lation assay 17.0 s 12.2-14.7 INR in platelet poor plasma or blood by coagulation as say 1.3 0.8-1.4 Bacteria identification in isolate by an aerobe culture - 05/24/19 12:45 Bacteria identification in isolate by anaerobe culture NOANA NRG Gram stain microscopy - 05/24/19 12:45 Gram stain microscopy No bacteria seen NRG Bacteria identification in wound by cult ure - 05/24/19 12:45 Bacteria identification in wound by culture [id number] NRG FREE TEXT EXTERNAL MRSA CONFIRMED BY RML 05/26 11:05 NRG QUANTITY OF GROWTH Rare NRG FREE TEXT ENTRY 2 PRESUMPTIVE MRSA; SCREENING AT V CP NRG FREE TEXT ENTRY 3 REFER TO M1893 FOR SUSCEPTIBILIT Y NRG CALL POSITIVES (F1 HELP) KNOWN MRSA, PATIENT IN ISOLATION/KD NRG FREE TEXT ENTRY 4 RESISTANT ORGANISM/CONTACT PRECA UTIONS NRG Fungus culture - 05/24/19 12:45 Vancomycin trough - 05/24/19 14:13 Vancomycin trough 11.4 ug/mL 10.0-20.0 Vancomycin trough - 05/25/19 14:02 Vancomycin trough 14.6 ug/mL 10.0-20.0 Automated blood complete blood count (he mogram) panel - 05/27/19 04:05 Blood leukocytes automated count (number/volume) 4.2 10*3/uL 4.3-11.0 Blood erythrocytes automated count (number/volume) 3.86 10*6/uL 4.35-5.85 Venous blood hemoglobin measurement (mass/volume) 11.5 g/dL 13.3-17.7 Blood hematocrit (volume fraction) 37 % 40-54 Automated erythrocyte mean corpuscular volume 96 [ foz_us] 80-99 Automated erythrocyte mean corpuscular h emoglobin (mass per erythrocyte) 30 pg 25-34 Automated erythrocyte mean corpuscular h emoglobin concentration measurement (mass/volume) 31 g/dL 32-36 Automated erythrocyte distribution width ratio 13. 7 % 10.0- 14.5 Automated blood platelet count (count/volume) 314 10*3/uL 130-400 Automated blood platelet mean volume measurement 9.8 [foz_us] 7.4-10.4 PT panel in platelet poor plasma by coag ulation assay - 05/27/19 04:05 Prothrombin time (PT) in platelet poor plasma by coagu lation assay 15.6 s 12.2-14.7 INR in platelet poor plasma or blood by coagulation as say 1.2 0.8-1.4 Bacteria identification in isolate by an aerobe culture - 05/28/19 14:25 Bacteria identification in isolate by anaerobe culture NOANA NRG Gram stain microscopy - 05/28/19 14:25 Gram stain microscopy No bacteria seen NRG Bacteria identification in wound by cult ure - 05/28/19 14:25 Bacteria identification in wound by culture [id number] NRG FREE TEXT EXTERNAL SUSCEPTIBILITY REPORTED 05/31/19 11:00 NRG QUANTITY OF GROWTH Rare NRG Dirithromycin susceptibility test by dis k diffusion - 05/28/19 14:25 Oxacillin susceptibility test by minimum inhibitory co ncentration <= NRG Clindamycin susceptibility test by minimum inhibitory concentration R NRG Erythromycin susceptibility test by minimum inhibitory concentration > NRG Vancomycin susceptibility test by minimum inhibitory c oncentration <= NRG Levofloxacin susceptibility test by minimum inhibitory concentration <= NRG Rifampin susceptibility test by minimum inhibitory con centration <= NRG Cefazolin susceptibility test by minimum inhibitory co ncentration <= NRG Linezolid susceptibility test by minimum inhibitory co ncentration <= NRG Moxifloxacin susceptibility test by minimum inhibitory concentration S NRG Minocycline susc MINERVA <= NRG Automated blood complete blood count (he mogram) panel - 05/29/19 04:40 Blood leukocytes automated count (number/volume) 5.3 10*3/uL 4.3-11.0 Blood erythrocytes automated count (number/volume) 4.04 10*6/uL 4.35-5.85 Venous blood hemoglobin measurement (mass/volume) 12.0 g/dL 13.3-17.7 Blood hematocrit (volume fraction) 39 % 40-54 Automated erythrocyte mean corpuscular volume 97 [ foz_us] 80-99 Automated erythrocyte mean corpuscular h emoglobin (mass per erythrocyte) 30 pg 25-34 Automated erythrocyte mean corpuscular h emoglobin concentration measurement (mass/volume) 31 g/dL 32-36 Automated erythrocyte distribution width ratio 14. 1 % 10.0- 14.5 Automated blood platelet count (count/volume) 331 10*3/uL 130-400 Automated blood platelet mean volume measurement 9.5 [foz_us] 7.4-10.4 PT panel in platelet poor plasma by coag ulation assay - 05/29/19 04:40 Prothrombin time (PT) in platelet poor plasma by coagu lation assay 16.0 s 12.2-14.7 INR in platelet poor plasma or blood by coagulation as say 1.2 0.8-1.4 Whole blood basic metabolic panel - 09/10 04:40 Serum or plasma sodium measurement (moles/volume) 141 mmol/L 135-145 Serum or plasma potassium measurement (moles/volume) 4.6 mmol/L 3.6-5.0 Serum or plasma chloride measurement (moles/volume) 105 mmol/L 98-107 Carbon dioxide 28 mmol/L 21-32 Serum or plasma anion gap determination (moles/volume) 8 mmol/L 5-14 Serum or plasma urea nitrogen measurement (mass/volume ) 16 mg/dL 7-18 Serum or plasma creatinine measurement (mass/volume) 0.79 mg/dL 0.60-1.30 Serum or plasma urea nitrogen/creatinine mass ratio 20 NRG Serum or plasma creatinine measurement w ith calculation of estimated glomerular filtration rate > NRG Serum or plasma glucose measurement (mass/volume) 103 mg/dL 70-105 Serum or plasma calcium measurement (mass/volume) 8.5 mg/dL 8.5-10.1 PT panel in platelet poor plasma by coag ulation assay - 05/31/19 07:50 Prothrombin time (PT) in platelet poor plasma by coagu lation assay 17.2 s 12.2-14.7 INR in platelet poor plasma or blood by coagulation as say 1.3 0.8-1.4 Encounters ACCT No. Visit Date/Time Discharge Status Pt. Type Provider Facility Loc./Unit Complaint [id number] 06/01/2019 16:42:00 020 23:59:59 CLS Outpatient JANE FIGUEROA, ALANNAH paz [facility] LAB FS [id number] 05/22/2019 15:00:00 020 09:45:00 DIS Inpatient SNOW FIGUEROA, ESTER Rasheed [facility] 4TH LEFT FOOT CELLULITIS [id number] 05/13/2019 15:01:00 020 00:01:00 DIS Outpatient ALANNAH LARA MD [facility] LAB FS I82.5Y9 [id number] 09/11/2018 14:39:00 019 00:01:00 DIS Outpatient ALANNAH LARA MD [facility] FS I82.5Y9 [id number] 12/22/2017 00:09:00 23:59:59 CLS Preadmit RAMÓN FIGUEROA, ALLISON higgins [facility] ONC [id number] 11/07/2017 14:31:00 018 00:01:00 DIS Outpatient ALLISON MELGAR MD [facility] ONC [id number] 09/21/2017 08:51:00 018 00:01:00 DIS Outpatient ALLISON MELGAR MD [facility] ONC [id number] 05/15/2013 06:05:00 014 13:54:00 DIS Outpatient THIEN TREJO MD [facility] SDC RETENTION [id number] 05/08/2013 13:06:00 014 23:59:59 CLS Outpatient THIEN TREJO MD [facility] PREOP RETENTION [id number] 05/23/2019 00:00:00 Document Registration
[2019-07-24] MEDS: NS IV 1000 ML 1,000 ML IV SCH ×2 (16:24→23:27)
[2019-07-24] MEDS ORDERED: ANTACID SUSP 30 ML UDC (MYLANTA) PO PRN (16:30)
[2019-07-24] MEDS ORDERED: hydrALAZINE (APESOLINE) 20 MG/ML VIAL IV PRN (16:30)
[2019-07-24] MEDS ORDERED: ACETAMINOPHEN 325 MG TABLET PO PRN (16:30)
[2019-07-24] MEDS ORDERED: MELATONIN 3 MG TABLET PO PRN (16:30)
[2019-07-24] MEDS ORDERED: ONDANSETRON 4 MG/2 ML (SDV) Z0FRAN IV PRN (16:30)
[2019-07-24] MEDS ORDERED: polyethylene glycoL POWDER 17 GM (MIRALAX) PACK PO PRN (16:30)
[2019-07-24] MEDS ORDERED: ONDANSETRON 4 MG (ZOFRAN) ORAL DISSOLVE TAB PO PRN (16:30)
[2019-07-24] MEDS ORDERED: BISACODYL 10 MG SUPP (DULCOLAX) PR PRN (16:30)
[2019-07-24] MEDS ORDERED: ENOXAPARIN 40 MG/0.4 ML (LOVENOX) SYR SC SCH (16:30)
[2019-07-24] MEDS ORDERED: diphenhydrAMINE 25 MG TAB (BENADRYL) PO PRN (16:30)
[2019-07-24] MEDS ORDERED: VANCOMYCIN 1,750 MG/NS 500 ML IVPB IV NR ×2 (16:30)
[2019-07-24 16:39] LABS: BASOPHILS % (AUTO) 0 % (0-10); EOSINOPHILS # (AUTO) 0.1 10^3/uL (0.0-0.3); EOSINOPHILS % (AUTO) 3 % (0-10); HEMATOCRIT 38 % (40-54); HEMOGLOBIN 11.5 G/DL (13.3-17.7); LYMPHOCYTES % (AUTO) 26 % (12-44); MEAN CORPUSCULAR HEMOGLOBIN 29 PG (25-34); MEAN CORPUSCULAR HGB CONC 30 G/DL (32-36); MEAN CORPUSCULAR VOLUME 95 FL (80-99); MEAN PLATELET VOLUME 9.8 FL (7.4-10.4); MONOCYTES # (AUTO) 0.6 X 10^3 (0.0-1.0); MONOCYTES % (AUTO) 17 % (0-12); NEUTROPHILS # (AUTO) 1.9 X 10^3 (1.8-7.8); NEUTROPHILS % (AUTO) 54 % (42-75); PLATELET COUNT 211 10^3/uL (130-400); RED CELL DISTRIBUTION WIDTH 16.8 % (10.0-14.5); WHITE BLOOD COUNT 3.6 10^3/uL (4.3-11.0)
[2019-07-24] MEDS ORDERED: CATHETER FLUSH 10 ML SYR IV PRN (16:45)
[2019-07-24 17:09] LABS: INR 1.4 (0.8-1.4); PROTHROMBIN TIME PATIENT 17.6 SEC (12.2-14.7)
[2019-07-24 17:16] LABS: BUN/CREATININE RATIO 16; CALCIUM 8.9 MG/DL (8.5-10.1); CARBON DIOXIDE 23 MMOL/L (21-32); CHLORIDE 102 MMOL/L (98-107); CREATININE SERUM 0.89 MG/DL (0.60-1.30); GFR ESTIMATED > 60; GLUCOSE 105 MG/DL (70-105); POTASSIUM 4.2 MMOL/L (3.6-5.0); SODIUM 138 MMOL/L (135-145)
[2019-07-24 17:22] LABS: ERYTHROCYTE SEDIMENTATION RATE 63 MM/HR (0-30)
[2019-07-24] MEDS ORDERED: PIPERACILLIN/TAZO 4.5 GM/NS 100 ML IV NR ×2 (17:30)
[2019-07-24] MEDS ORDERED: warFARin 5 MG (COUMADIN) TAB PO SCH (18:00)
[2019-07-24 19:15] VITALS: BP 116/74
[2019-07-24] MEDS: SENNOSIDES 8.6 MG (SENOKOT) TAB PO SCH (20:52)
[2019-07-24] MEDS: DOCUSATE SODIUM 100 MG (COLACE) CAP PO SCH (20:52)
[2019-07-24] MEDS: ENOXAPARIN 40 MG/0.4 ML (LOVENOX) SYR SC SCH (20:52)
[2019-07-24] MEDS: inSUlin ASPART (NovoLOG) 1 UNIT/0.01 ML (CHARGE PER UNIT) SC SCH (21:00)
[2019-07-24] MEDS: PIPERACILLIN/TAZOBACTAM (BULK) 4.5 GM in NS (IVPB) 100 ML IV SCH (23:27)
[2019-07-24 23:35] VITALS: BP 118/75
[2019-07-25 04:35] VITALS: BP 116/76
[2019-07-25] MEDS ORDERED: VANCOMYCIN 1250 MG/NS 250 ML IVPB IV SCH ×2 (05:00)
[2019-07-25 06:00] LABS: HEMOGLOBIN 10.4 G/DL (13.3-17.7); MEAN PLATELET VOLUME 9.4 FL (7.4-10.4); RED CELL DISTRIBUTION WIDTH 17.1 % (10.0-14.5); WHITE BLOOD COUNT 3.2 10^3/uL (4.3-11.0)
[2019-07-25 06:28] LABS: BUN/CREATININE RATIO 13; CARBON DIOXIDE 27 MMOL/L (21-32); CHLORIDE 104 MMOL/L (98-107); CREATININE SERUM 1.01 MG/DL (0.60-1.30); GFR ESTIMATED > 60; GLUCOSE 95 MG/DL (70-105); POTASSIUM 4.5 MMOL/L (3.6-5.0); SODIUM 140 MMOL/L (135-145)
[2019-07-25] MEDS: inSUlin ASPART (NovoLOG) 1 UNIT/0.01 ML (CHARGE PER UNIT) SC SCH ×4 (06:37→21:01)
[2019-07-25 08:00] VITALS: BP 117/76
[2019-07-25] MEDS: PIPERACILLIN/TAZOBACTAM (BULK) 4.5 GM in NS (IVPB) 100 ML IV SCH (08:00)
[2019-07-25] MEDS: SENNOSIDES 8.6 MG (SENOKOT) TAB PO SCH ×2 (08:02→22:04)
[2019-07-25] MEDS: DOCUSATE SODIUM 100 MG (COLACE) CAP PO SCH ×2 (08:02→22:04)
--- NOTE | 2019-07-25 08:39 | NUR ---
PER DISCUSSION WITH DR DENISE - CAN VANCOMYCIN BE DOSED ONCE DAILY. PLAN FOR POSSIBLE TRANSITION TO ONCE DAILY DOSING PATIENT ALREADY GIVEN VANCOMYCIN 1,250MG IV THIS AM, WE WILL GIVE AN EXTRA 750MG IV X 1 DOSE NOW, THEN CHANGE TO VANCOMYCIN 2GRAMS IV Q24 HOURS.
[2019-07-25] MEDS ORDERED: VANCOMYCIN 750 MG/NS 250 ML IVPB IV NR ×2 (08:45)
--- NOTE | 2019-07-25 09:10 | History & Physical-Hospitalist ---
History of Present Illness HPI/Chief Complaint River Andersen is an 84-year-old male with remote history of DVT currently on Coumadin, recent history of osteomyelitis with multiple toe amputations, who presented with worsening left foot redness, swelling, and purulent drainage. He had a wound VAC on his foot up until about a week ago. He has been following with Dr. Smith in his clinic. He denies any fevers or chills. He denies any nausea or vomiting. He denies any chest pain or shortness of breath. He has no other complaints or concerns. Source: patient Exam Limitations: no limitations Date Seen 07/25/19 Time Seen by a Provider: 07:40 Attending Physician Mauro Smith DO PCP Vin Parks MD Referring Physician Date of Admission Jul 24, 2019 at 15:22 Home Medications & Allergies Home Medications Reviewed patient Home Medication Reconciliation performed by pharmacy medication reconciliations surveillance camera technician and/or nursing. Patients Allergies have been reviewed. Allergies Allergies Coded Allergies Penicillins (Unverified Allergy, Unknown, RASH, 05/22/19) Past Zrbornn-Utqmmu-Sztgwx Hx Past Med/Social Hx: Reviewed Nursing Past Med/Soc Hx Patient Social History Alcohol Use: Occasionally Uses Number of Drinks Today: II Alcohol Beverage of Choice: Other Recreational Drug Use: No Former Smoker, Quit: Apr 24, 2009 Physical Abuse Screen: No Sexual Abuse: No Recent Foreign Travel: No Contact w/other who traveled: No Recent Hopitalizations: No Recent Infectious Disease Expo: No Immunizations Up To Date Date of Pneumonia Vaccine: Apr 24, 2009 Date of Influenza Vaccine: Jan 22, 2019 Seasonal Allergies Seasonal Allergies: No Past Medical History Cardiac: Deep Vein Thrombosis Genitourinary: Prostate Problems Musculoskeletal: Fractures HEENT: Cataract Hearing Impairment: Hard of Hearing Cancer: Prostate Did You Recieve Any Treatments: Yes What Type of Treatment Did You: Radiation History of Blood Disorders: Yes (ON COUMADIN R/T DVT) Family History Cancer 03 FATHER 03 MOTHER Family history: Diabetes mellitus 09 SISTER No Family History of: Abdominal aortic aneurysm Congenital heart disease Family history: Allergy Family history: Alzheimer's disease Family history: Arthritis Family history: Asthma Family history: Breast disease Family history: Cardiovascular disease Family history: Coronary thrombosis Family history: Gastrointestinal disease Family history: Glaucoma Family history: Hypertension Family history: Thyroid disorder Hereditary disease History of - respiratory disease Kidney disease Myocardial infarction Parkinson's disease Seizure disorder Review of Systems Constitutional: no symptoms reported EENTM: no symptoms reported Respiratory: no symptoms reported Cardiovascular: no symptoms reported Gastrointestinal: no symptoms reported Genitourinary: no symptoms reported Musculoskeletal: no symptoms reported Skin: see HPI Psychiatric/Neurological: No Symptoms Reported Physical Exam Physical Exam Vital Signs Vital Signs - First Documented 07/24/19 07/24/19 15:39 23:35 Temp 37.1 Pulse 79 Resp 22 B/P (MAP) 138/82 Pulse Ox 95 O2 Delivery Room Air O2 Flow Rate 2.00 Capillary Refill : Greater Than 3 Seconds Height, Weight, BMI Height: 6'1.00" Weight: 249lbs. oz. 112.380228hq; 28.77 BMI Method: General Appearance: No Apparent Distress, Chronically ill HEENT: PERRL/EOMI, Pharynx Normal Neck: Normal Inspection, Supple Respiratory: Lungs Clear, Normal Breath Sounds, No Respiratory Distress Cardiovascular: Regular Rate, Rhythm, No Edema, No Murmur Gastrointestinal: Normal Bowel Sounds, Non Tender, Soft Extremity: Non Tender, No Pedal Edema, Other (Multiple times a day she is) Neurologic/Psychiatric: Alert, Oriented x3, No Motor/Sensory Deficits, Normal Mood/Affect Skin: Other (Left foot redness and swelling, right foot normal-appearing post toe amputation changes) Results Results/Procedures Labs Laboratory Tests 07/24/19 16:30 07/25/19 05:50 Patient resulted labs reviewed. Assessment/Plan Admission Diagnosis Left foot cellulitis Admission Status: Inpatient Order (span 2 midnights) Reason for Inpatient Admission: Cellulitis requiring IV antibiotics and further evaluation Assessment and Plan Left foot cellulitis History of osteomyelitis WBC normal, afebrile ESR and CRP moderately elevated Obtain MRI to evaluate for osteomyelitis Started on vancomycin and Zosyn Wound culture obtained, preliminarily showing staph aureus and Proteus Transition from Zosyn to Rocephin Gen. surgery following, appreciate assistance Wound care consulted, appreciate assistance History of DVT INR 1.4 Hold warfarin for possible surgical intervention Prediabetes Sliding scale insulin DVT prophylaxis: Lovenox Diagnosis/Problems Diagnosis/Problems (1) Cellulitis of left foot Status: Acute (2) History of DVT (deep vein thrombosis) Status: Chronic (3) Prediabetes Status: Chronic Clinical Quality Measures DVT/VTE Risk/Contraindication: Risk Factor Score Per Nursin RFS Level Per Nursing on Admit: 4+=Very High JULIA DENISE MD Jul 25, 2019 09:10
[2019-07-25] MEDS ORDERED: WARF-48 PO (10:18)
[2019-07-25] MEDS ORDERED: POLY17PO6 PO (10:22)
--- NOTE | 2019-07-25 10:23 | NUR ---
SPOKE WITH THE PT, WENT THRU THE EXT MED HISTORY, [facility] AND CALLED [facility] TO COMPLETE THE MED REC PT WAS DISCHARGED YESTERDAY FROM [facility] IN [place] AND THEN CAME HERE FOR WOUND TREATMENT AND WAS ADMITTED. I CALLED THE FACILITY AND GOT THE ORDER SUMMARY REPORT THAT WAS CURRENT WHEN HE WAS DISCHARGED. WHEN I SPOKE WITH THE PT HE SAID HE DOES TAKE COUMADIN 5MG HS AND THEN PT REMEMBERED HE WAS TAKING A BLADDER MEDICATION FROM DR TREJO AND AN EYE DROP. [facility] HAS FILLED TOVIAZ 8MG ON 10-17-2017 #90-HOWEVER DUE TO THE PAST DUE FILL I WILL NOT INCLUDE THIS ON THE MED REC THE ONLY EYE DROP [facility] HAS FILLED IN THE PAST YEAR IS BACITRACIN OPHTHALMIC OINT AND THIS WAS FILLED ON 06-23-2018, I DID NOT INCLUDE THIS EITHER DUE TO THE FILL DATE OTC MEDS: MIRALAX PRN
[2019-07-25] MEDS: cefTRIAXone FOR IV USE 2,000 MG in WATER (STERILE) FOR INJECTION 20 ML IV SCH (10:47)
[2019-07-25] MEDS: NS IV 1000 ML 1,000 ML IV SCH ×2 (10:51→21:42)
--- NOTE | 2019-07-25 10:58 | Occupational Therapy Eval ---
OT Evaluation-General/PLF Medical Diagnosis Admission Date Jul 24, 2019 at 15:22 Medical Diagnosis: Osteomyelitis of L great toe; amputations Onset Date: Jul 24, 2019 Therapy Diagnosis Therapy Diagnosis: Decreased ADL status Height/Weight Height (Feet): 6 Height (Inches): 1.00 Weight (Pounds): 249 Precautions Precautions/Isolations: Fall Prevention, Standard Precautions Safety Interventions: Bed Exit Alarm Weight Bear Status Weight Bearing Restriction: Weight Bearing/Tolerated (per nursing clinical director, pt has been up and moving; no WB status noted in chart. ) Referral Physician: Marcelle Roche MD Referral Reason: Activity Tolerance, Self Care, Evaluation/Treatment, Strengthening/ROM Medical History Additional Medical History hard of hearing, pre-DM, amputations of L #2-3 and R #2 toes, Current History Pt states toe amputations ~9 weeks ago. 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 Reviewed History: Yes Social History Home: Multilevel (pt states only goes to first floor. ) Current Living Status: Alone Entry Into Home: Stairs Without Railing Steps Into Home: 3 (3 steps, ~4-8 feet apart (pt states ~15 [address] from driveway to entryway) Steps Inside Home: 8 (staircase to 2nd level, though all pt's needs on 1st floor. ) ADL-Prior Level of Function SCALE: Activities may be completed with or without assistive devices. 0-Xxeruremru-rcxtqih completes the activity by him/herself with no assistance from a helper. 5-Set-up or Clean-up Assistance-helper sets up or cleans up; patient completes activity. Baxter assists only prior to or following the activity. 4-Supervision or Touching Assistance-helper provides verbal cues and/or touching/steadying and/or contact guard assistance as patient completes activity. Assistance may be provided throughout the activity or intermittently. 3-Partial/Moderate Assistance-helper does LESS THAN HALF the effort. Baxter lifts, holds or supports trunk or limbs, but provides less than half the effort. 2-Substantial/Maximal Assistance-helper does MORE THAN HALF the effort. Baxter lifts or holds trunk or limbs and provides more than half the effort. 5-Scwpqsflo-xyncbq does ALL the effort. Patient does none of the effort to complete the activity. Or, the assistance of 2 or more helpers is required for the patient to complete the activity. If activity was not attempted, code reason: 7-Patient Refused. 9-Not Applicable-not attempted and the patient did not perform the activity before the current illness, exacerbation or injury. 10-Not Attempted due to Environmental Limitations-(lack of equipment, weather restraints, etc.). 88-Not Attempted due to Medical Conditions or Safety Concerns. ADL PLOF Comments Pt IND with ADL tasks, assist with homecare. Self Care: Independent Functional Cognition: Independent DME/Equipment: Bath Bench, Grab Bars, Tub/Shower DME/Equipment Comments Pt's daughter placing tub/ bench, grab bars in shower and by toilet this week. Pt has 2WW and SPC. Occupation: retired insurance Drive Self: Yes Leisure Interests: dog OT Current Status Subjective Pt seen in recliner chair. Pt agreeable to OT tx session, denying pain and states he has not had pain since surgery ~9 weeks ago. Mental Status/Objective Patient Orientation: Person, Place, Situation, Normal For Age Attachments: IV Current Hand Dominance: Right Upper Extremity ROM WFL BUE Upper Extremity Coordination WFL BUE Upper Extremity Sensation WFL BUE WFL BLE per pt. Upper Extremity Strength WFL BUE (4+/5) ADL-Treatment Eating (QC): 6 (per pt) Oral Hygiene (QC): 6 (per clinical judgment ) Lower Body Dressing (QC): 4 (per clinical judgment, pt would require SBA for undergarment/ pant donning for safety) On/Off Footwear (QC): 6 (completes shoe donning/ doffing in chair with IND.) Other Treatments Pt provides hx. Pt states lives alone, has aerospace physiological technician for house work. Pt states friends have volunteered for grocery runs. Pt has 2 daughters, both live out of state. Daughter, Mellissa, now at home and is doing home modifications/ safety measures for pt's safe/ successful return home. Pt states daughter plans to stay until pt home and then will leave. Pt completes MMT/ ROM WFL. Pt denies requiring assist with ADLs- completes shoe donning and then sit to stand with 2WW with SBA and completes arm ROM (forward flexion, bends and touches bilateral knees, and brings bilateral hands behind back). Per clinical judgment and cynthia ce, pt would require SBA only in LB dressing and showering tasks due to balance. With ambulation tasks with PT, this can be addressed. Pt denies further concerns for ADLs within the home. Pt educated on level of ADLs, all needs met, call light in reach, pt's nurse present. Education OT Patient Education: Purpose of tx/functional activities, Safety issues, Use of adapted equipment Teaching Recipient: Patient Teaching Methods: Discussion Response to Teaching: Verbalize Understanding, Return Demonstration OT Tap Out Operator Goals Alf Goals 1=Demonstrate adherence to instructed precautions during ADL tasks. 2=Patient will verbalize/demonstrate understanding of assistive devices/modifications for ADL. 3=Patient will improve strength/tolerance for activity to enable patient to perform ADL's. OT Education/Plan Problem List/Assessment Assessment: No Skilled OT Needs ID'd Discharge Recommendations Plan/Recommendations: Discharge/Goals Met Therapy Discharge Recommendati: Intermittent Supervision, Homemaker Support, Home & Family Treatment Plan/Plan of Care Treatment,Training & Education: Yes . Plan of Care: OTHER (eval only) Treatment Duration: Jul 25, 2019 Frequency: 1 time per week (eval only) Time/GCodes Start Time: 10:32 Stop Time: 10:47 Total Time Billed (hr/min): 15 Billed Treatment Time 1RENAN (15) NICOLAS CHANDLER OTR Jul 25, 2019 10:58
--- NOTE | 2019-07-25 11:03 | NUR ---
"RD ASSESSMENT PMHx: DVT; CA(prostate) PT INTERACTION: Pt was awake and pleasant during nutrition assessment. Pt states current appetite is okay, and has been for some time. Note avg PO intake >75% x2meal, per chart review. Pt states following a regular diet at home, and has no issues with chewing/swallowing food. Pt states no recent issues with nausea/vomiting/constipation/diarrhea at this time, and that his last BM was 07/22. Note pt currently on bowel regimen of Colace BID; and Senna BID, per chart review. Pt states recent 10# wt loss, but unsure of timeframe. Note recent 13# wt gain x2mon, per chart review. Note presence of wound on left foot (great toe). ABNORMAL NUTRITION-RELATED LAB VALUES LOW: Ca 8.0 HIGH: Est. kcal needs: 4854-4874 kcal | 20-25 kcal/kg Est. Pro needs: 128-150 g Pro | 1.2-1.4 g Pro/kg PES STATEMENT: Inadequate oral intake (NI-5.6.1) related to increased protein needs as evidenced by presence of wound (left great toe) INTERVENTION: Continue with current diet order of CHO 60g/m 1snack diet. Add Ensure HP (vary) to meals TID. Provides 160 kcal and 16 g Pro per serving for perceived benefit to wound healing. Will continue to follow and reassess as pt needs, intake, and status change. MONITOR/EVALUATE: PO Intake; Plan of Care; Hydration Status; Weight Status; Lab Values Jerrell Falcon, MS, RD, LD"
--- NOTE | 2019-07-25 11:06 | NUR ---
CM/SS: Visited with pt as to plan for discharge Plan: Undetermined at this time. Pt has indicated that his daughter that lives in [place], [place] wants him to go and live with her after this hospital stay. Summary: Pt had been at [facility] prior to his return to the hospital. He reports more issues with his foot. He is thinking that the infection is to the bone, and awaiting an MRI. Pt remembers this worker from his last hospital stay, and is aware that I will be working with him through his stay and coordinate discharge. Pt verbalizes understanding. Phone Call to Daughter Windy - [phone]. She is unable to talk as she is at the grocery store and will call this worker back when she is able.
[2019-07-25] MEDS ORDERED: GADOBUTROL 10 MMOL/10 ML (GADAVIST) VIAL IV ONE (11:45)
[2019-07-25 12:00] VITALS: BP 116/75
--- NOTE | 2019-07-25 12:16 | Diagnostic Imaging Report ---
PROCEDURE: MRI left lower extremity with and without contrast. TECHNIQUE: Multiplanar, multisequence pre and post contrast-enhanced MRI of the left lower extremity was accomplished. INDICATION: Infection of the left great toe. COMPARISON: 05/23/2019 FINDINGS: No acute fracture is seen in the imaged portions of the left foot. There is enhancing bone marrow edema throughout the distal phalanx of the left great toe. There is also T1-weighted hypointensity in the distal phalanx, particularly at the lateral aspect. There is associated cortical indistinction. Findings are consistent with osteomyelitis. There has been prior amputation of the 2nd and 3rd toes at the MTP joints. There is edema in the distal stumps, particularly at the 2nd metatarsal, with associated enhancement. There is T1-weighted hypointensity at the stump of the 2nd metatarsal. There does appear to be mild edema in the 4th toe distal phalanx, with no T1-weighted hypointensity seen. There is enhancing soft tissue edema throughout the imaged portions of the left foot, most pronounced about the great toe and at the dorsal aspect of the foot with a soft tissue defect extending toward the 2nd metatarsal head. No drainable rim-enhancing fluid collections are seen. There is generalized muscular atrophy and mild edema, likely from neuropathic changes. No significant tenosynovitis is seen. IMPRESSION: 1. Findings consistent with osteomyelitis of the left great toe distal phalanx. There are also findings concerning for osteomyelitis of the 2nd metatarsal head. 2. Osteitis of the 3rd metatarsal head and 4th toe distal phalanx without findings of osteomyelitis at this time. 3. Enhancing edema about the left great toe and dorsal forefoot, with soft tissue defect dorsally extending near the 2nd and 3rd metatarsal heads. No drainable fluid collections are seen. Dictated by: Dictated on workstation # [id number]
--- NOTE | 2019-07-25 12:57 | Progress Note - Surgery ---
Subjective Date Seen by a Provider: Jul 25, 2019 Time Seen by a Provider: 12:53 Subjective/Events-last exam Patient doing no new complaints. Redness has decreased some. No pain. Denies n/v fever sweats chills shortness of breath or chest pain. Objective Exam Vital Signs Date Time Temp Pulse Resp B/P (MAP) Pulse Ox O2 Delivery O2 Flow Rate FiO2 07/25/19 08:20 Room Air 07/25/19 08:00 36.5 65 20 117/76 (90) 99 Nasal Cannula 2.00 07/25/19 04:35 36.6 64 20 116/76 (89) 98 Nasal Cannula 2.00 07/24/19 23:35 36.8 68 20 118/75 (89) 94 Nasal Cannula 2.00 07/24/19 20:59 Room Air 07/24/19 19:31 Room Air 07/24/19 19:15 36.7 76 20 116/74 (88) 95 Room Air 07/24/19 16:06 37.1 79 22 138/82 (100) 95 Room Air 07/24/19 15:39 37.1 79 22 138/82 95 Room Air I & O 07/25/19 07:00 Intake Total 1087.5 ml Output Total 300 ml Balance 787.5 ml Capillary Refill : Greater Than 3 Seconds General Appearance: No Apparent Distress, Chronically ill HEENT: PERRL/EOMI, Pharynx Normal Neck: Normal Inspection, Supple Respiratory: Chest Non Tender, No Accessory Muscle Use, No Respiratory Distress Cardiovascular: Regular Rate, Rhythm Gastrointestinal: non tender, soft Extremity: Non Tender, No Pedal Edema, Other (left lower extremity dorsal foot less erythema, right great toe with edema wound at 2/3 metacarpal hyper granulation, left 4th toe small ulcer) Neurologic/Psychiatric: Alert, Oriented x3, No Motor/Sensory Deficits, Normal Mood/Affect, Other (decreased sensation b/l lower extr) Skin: Other (Left foot redness and swelling as noted above, right foot normal- appearing post toe amputation changes) Results Lab Laboratory Tests 07/24/19 16:30: White Blood Count 3.6L, Red Blood Count 4.01L, Hemoglobin 11.5L, Hematocrit 38L, Mean Corpuscular Volume 95, Mean Corpuscular Hemoglobin 29, Mean Corpuscular Hemoglobin Concent 30L, Red Cell Distribution Width 16.8H, Platelet Count 211, Mean Platelet Volume 9.8, Neutrophils (%) (Auto) 54, Lymphocytes (%) (Auto) 26, Monocytes (%) (Auto) 17H, Eosinophils (%) (Auto) 3, Basophils (%) (Auto) 0, Neutrophils # (Auto) 1.9, Lymphocytes # (Auto) 1.0, Monocytes # (Auto) 0.6, Eosinophils # (Auto) 0.1, Basophils # (Auto) 0.0, Erythrocyte Sedimentation Rate 63H, Prothrombin Time 17.6H, INR Comment 1.4, Activated Partial Thromboplast Time 35, Sodium Level 138, Potassium Level 4.2, Chloride Level 102, Carbon Dioxide Level 23, Anion Gap 13, Blood Urea Nitrogen 14, Creatinine 0.89, Estimat Glomerular Filtration Rate > 60, BUN/Creatinine Ratio 16, Glucose Level 105, Calcium Level 8.9, C-Reactive Protein High Sensitivity 4.37H 07/24/19 20:45: Glucometer 140H 07/25/19 04:49: Glucometer 94 07/25/19 05:50: White Blood Count 3.2L, Red Blood Count 3.66L, Hemoglobin 10.4L, Hematocrit 35L, Mean Corpuscular Volume 95, Mean Corpuscular Hemoglobin 28, Mean Corpuscular Hemoglobin Concent 30L, Red Cell Distribution Width 17.1H, Platelet Count 207, Mean Platelet Volume 9.4, Sodium Level 140, Potassium Level 4.5, Chloride Level 104, Carbon Dioxide Level 27, Anion Gap 9, Blood Urea Nitrogen 13, Creatinine 1.01, Estimat Glomerular Filtration Rate > 60, BUN/Creatinine Ratio 13, Glucose Level 95, Calcium Level 8.0L 07/25/19 10:59: Glucometer 116H Microbiology 07/24/19 Gram Stain - Final, Resulted 07/24/19 Anaerobic Culture, Resulted Pending 07/24/19 Surgical Culture - Preliminary, Resulted Proteus species Staphylococcus aureus Assessment/Plan Assessment/Plan Assessment/Plan left foot cellulitis rule out osteomyelitis history of osteomyelitis continue abx await sensitivities MRI today continue wound care left foot Clinical Quality Measures DVT/VTE Risk/Contraindication: Risk Factor Score Per Nursin RFS Level Per Nursing on Admit: 4+=Very High PATRICIA PAREDES DO Jul 25, 2019 12:57
--- NOTE | 2019-07-25 14:25 | Physical Therapy Evaluation ---
PT Evaluation-General Medical Diagnosis Admission Date Jul 24, 2019 at 15:22 Medical Diagnosis: Osteomyelitis of L great toe; amputations Onset Date: Jul 24, 2019 Therapy Diagnosis Therapy Diagnosis: impaired mobility, strength, endurance Height/Weight Height (Feet): 6 Height (Inches): 1.00 Weight (Pounds): 249 Precautions Precautions/Isolations: Fall Prevention, Standard Precautions Weight Bear Status Right Lower Extremity: Right Weight Bearing/Tolerated Left Lower Extremity: Left Weight Bearing/Tolerated Referral Physician: Marcelle Roche MD Reason for Referral: Evaluation/Treatment Medical History Additional Medical History Past Medical History Cardiac: Deep Vein Thrombosis Genitourinary: Prostate Problems Musculoskeletal: Fractures HEENT: Cataract Hearing Impairment: Hard of Hearing Cancer: Prostate Reviewed History: Yes Social History Home: Multilevel (pt states only goes to first floor. ) Current Living Status: Alone Entry Into Home: Stairs Without Railing PT Steps Into Home: 3 (3 steps, ~4-8 feet apart (pt states ~15 [address] from driveway to entryway) PT Steps Inside Home: 8 (staircase to 2nd level, though all pt's needs on 1st floor. ) Prior Prior Level of Function SCALE: Activities may be completed with or without assistive devices. 5-Afclwtbttb-gfhvwum completes the activity by him/herself with no assistance from a helper. 5-Set-up or Clean-up Assistance-helper sets up or cleans up; patient completes activity. [place] assists only prior to or following the activity. 4-Supervision or Touching Assistance-helper provides verbal cues and/or touching/steadying and/or contact guard assistance as patient completes activity. Assistance may be provided throughout the activity or intermittently. 3-Partial/Moderate Assistance-helper does LESS THAN HALF the effort. [place] lifts, holds or supports trunk or limbs, but provides less than half the effort. 2-Substantial/Maximal Assistance-helper does MORE THAN HALF the effort. [place] lifts or holds trunk or limbs and provides more than half the effort. 4-Gsggvfenz-hyjzjt does ALL the effort. Patient does none of the effort to complete the activity. Or, the assistance of 2 or more helpers is required for the patient to complete the activity. If activity was not attempted, code reason: 7-Patient Refused. 9-Not Applicable-not attempted and the patient did not perform the activity before the current illness, exacerbation or injury. 10-Not Attempted due to Environmental Limitations-(lack of equipment, weather restraints, etc.). 88-Not Attempted due to Medical Conditions or Safety Concerns. Bed Mobility: 6 Transfers (B,C,W/C): 6 Gait: 6 Stairs: 6 Indoor Mobility (Ambulation): Independent Stairs: Independent used a SPC previously PT Evaluation-Current Subjective Patient in recliner pre tx, agrees to PT, has no complaints of pain Pt/Family Goals to be independent at home Objective Patient Orientation: Person, Place, Situation Attachments: IV ROM/Strength ROM Lower Extremities WNL Strength Lower Extremities 4/5 gross BLE Sensory Hearing: Functional Hand Dominance: Right Sensation Right Lower Extremit: Impaired Sensation Left Lower Extremity: Impaired Transfers Sit to Stand (QC): 4 Chair/Szq-ux-Jdgsy Xfer(QC): 4 SBA Gait Does the Patient Walk?: Yes Mode of Locomotion: Walk Anticipated Mode of Locomotion: Walk Walk 10 feet (QC): 4 Distance: 30' Gait Assistive Device: Cane Single Point Comments/Gait Description SBA, used SPC and surgical shoe on both sides, slow but steady ambulation Balance Sitting Static: Normal Sitting Dynamic: Normal Standing Static: Good Standing Dynamic: Good Treatment BLE seated exercises x20 (AP, LAQ) Assessment/Needs Patient has impaired mobility, strength, endurance, ambulates slow but no LOB or unsteadiness. Patient in recliner post tx with nurse call, phone, tray, all needs met, legs elevated. Rehab Potential: Fair PT [facility] Goals Deposition Reporter Goals PT Deposition Reporter Goals Time Frame: Aug 01, 2019 Roll Left & Right (QC): 6 Sit to Lying (QC): 6 Lying-Sitting on Side/Bed(QC): 6 Sit to Stand (QC): 6 Chair/Ihz-jv-Zwdyz Xfer(QC): 6 Walk 10 feet (QC): 6 Walk 50ft with 2 Turns (QC): 6 Walk 150 ft (QC): 6 1 Step (curb) (QC): 4 4 Steps (QC): 4 PT Plan Problem List Problem List: Activity Tolerance, Functional Strength, Safety, Balance, Gait, Transfer Treatment/Plan Treatment Plan: Continue Plan of Care Treatment Plan: Education, Functional Activity Nishant, Functional Strength, Gait, Safety, Therapeutic Exercise, Transfers Treatment Duration: Aug 01, 2019 Frequency: 6 times per week Estimated Hrs Per Day: .25 hour per day Patient and/or Family Agrees t: Yes Safety Risks/Education Patient Education: Gait Training, Transfer Techniques, Correct Positioning, Safety Issues Teaching Recipient: Patient Teaching Methods: Demonstration, Discussion Response to Teaching: Reinforcement Needed Discharge Recommendations Plan Patient will perform bed mobility and transfer training, balance and endurance training, functional strengthening, stair training, gait training, and education, to improve functional mobility and independence at home. Therapy Discharge Recommendati: Home & Family Time/GCodes Time In: 1404 Time Out: 1414 Total Billed Treatment Time: 10 Total Billed Treatment 1 visit ANGEL AWAD PT Jul 25, 2019 14:25
--- NOTE | 2019-07-25 15:41 | Diagnostic Imaging Report ---
INDICATION: Peripheral arterial disease. EXAMINATION: Segmental blood pressures were performed. Ankle brachial index on the right is 1.52 and on the left 1.11. IMPRESSION: Ankle-brachial indices, as described. Dictated by: Dictated on workstation # [id number]
[2019-07-25 16:27] VITALS: BP 115/64
--- NOTE | 2019-07-25 18:59 | Wound Care Assessment ---
Wound Care Assessment Date Seen by Provider: Jul 25, 2019 Time Seen by Provider: 10:15 Chief Complaint Ulcer L foot. HPI The patient is an 84 year old gentleman, 2 months s/p amputation of L 3rd toe, with non-healing wound. The patient was admitted with cellulitis of foot, and there is concern that there is infection of the L great toe. Arterial studies are ordered. Recreational Drug Use: No Alcohol Use: Occasionally Uses Exam Vital Signs Date Time Temp Pulse Resp B/P (MAP) Pulse Ox O2 Delivery O2 Flow Rate FiO2 07/25/19 16:27 36.9 69 18 115/64 (81) 94 Room Air 07/25/19 08:00 2.00 Capillary Refill : Greater Than 3 Seconds Results Laboratory Tests 07/24/19 20:45: Glucometer 140H 07/25/19 04:49: Glucometer 94 07/25/19 05:50: White Blood Count 3.2L, Red Blood Count 3.66L, Hemoglobin 10.4L, Hematocrit 35L, Mean Corpuscular Volume 95, Mean Corpuscular Hemoglobin 28, Mean Corpuscular Hemoglobin Concent 30L, Red Cell Distribution Width 17.1H, Platelet Count 207, Mean Platelet Volume 9.4, Sodium Level 140, Potassium Level 4.5, Chloride Level 104, Carbon Dioxide Level 27, Anion Gap 9, Blood Urea Nitrogen 13, Creatinine 1.01, Estimat Glomerular Filtration Rate > 60, BUN/Creatinine Ratio 13, Glucose Level 95, Calcium Level 8.0L 07/25/19 10:59: Glucometer 116H 07/25/19 16:07: Glucometer 137H Microbiology 07/24/19 Gram Stain - Final, Resulted 07/24/19 Anaerobic Culture, Resulted Pending 07/24/19 Surgical Culture - Preliminary, Resulted Proteus species Staphylococcus aureus Microbiology 07/24/19 Gram Stain - Final, Resulted 07/24/19 Anaerobic Culture, Resulted Pending 07/24/19 Surgical Culture - Preliminary, Resulted Proteus species Staphylococcus aureus ANTONELLA SANDOVAL MD Jul 25, 2019 18:59
[2019-07-25 20:00] VITALS: BP 120/74
[2019-07-25] MEDS: ENOXAPARIN 40 MG/0.4 ML (LOVENOX) SYR SC SCH (22:04)
[2019-07-26] VITALS (7 sets, daily range): BP systolic 122–151; BP diastolic 55–88
[2019-07-26] MEDS: inSUlin ASPART (NovoLOG) 1 UNIT/0.01 ML (CHARGE PER UNIT) SC SCH ×4 (05:53→20:53)
[2019-07-26] MEDS ORDERED: TROUGH ORDER-PHARMACY XX NR (06:00)
--- NOTE | 2019-07-26 06:51 | NUR ---
PTD VANCOMYCIN LABS: SCR 1.01 (UP FROM 0.89) VANCOMYCIN TROUGH 11 (07/25 @ 0543) A/P: VANCOMYCIN TROUGH WAS PRIOR TO 3RD DOSE. SUSPECTED MRSA INFECTION SO WILL GIVE AN EXTRA VANCOMYCIN 500MG THIS MORNING AND INCREASE MAINTENANCE DOSE TO VANCOMYCIN 2,250 MG IVQ24 HOURS. MONITOR SCR/RENAL FXN CLOSELY AND TROUGH LEVELS.
[2019-07-26] MEDS ORDERED: VANCOMYCIN 2000 MG/NS 500 ML IVPB IV SCH ×2 (07:00)
[2019-07-26] MEDS ORDERED: VANCOMYCIN 500 MG/NS 100 ML IVPB IV NR ×2 (08:30)
[2019-07-26] MEDS: cefTRIAXone FOR IV USE 2,000 MG in WATER (STERILE) FOR INJECTION 20 ML IV SCH (09:21)
[2019-07-26] MEDS: SENNOSIDES 8.6 MG (SENOKOT) TAB PO SCH ×2 (09:22→19:56)
[2019-07-26] MEDS: DOCUSATE SODIUM 100 MG (COLACE) CAP PO SCH ×2 (09:22→19:56)
[2019-07-26] MEDS: NS IV 1000 ML 1,000 ML IV SCH ×3 (09:25→21:54)
--- NOTE | 2019-07-26 09:26 | Physical Therapy Daily Note ---
PT Daily Note-Current Subjective Pt in bed upon arrival. Pt agrees to participate in therapy tx. Pain Numeric Pain Scale: 0-No Pain Location: No Pain Reported Mental Status Patient Orientation: Normal For Age Attachments: IV Transfers SCALE: Activities may be completed with or without assistive devices. 0-Hjpfojqwol-lioyqet completes the activity by him/herself with no assistance from a helper. 5-Set-up or Clean-up Assistance-helper sets up or cleans up; patient completes activity. [place] assists only prior to or following the activity. 4-Supervision or Touching Assistance-helper provides verbal cues and/or touching/steadying and/or contact guard assistance as patient completes activit y. Assistance may be provided throughout the activity or intermittently. 3-Partial/Moderate Assistance-helper does LESS THAN HALF the effort. [place] lifts, holds or supports trunk or limbs, but provides less than half the effort. 2-Substantial/Maximal Assistance-helper does MORE THAN HALF the effort. [place] lifts or holds trunk or limbs and provides more than half the effort. 9-Zzewhrxrg-vztiyp does ALL the effort. Patient does none of the effort to complete the activity. Or, the assistance of 2 or more helpers is required for the patient to complete the activity. If activity was not attempted, code reason: 7-Patient Refused. 9-Not Applicable-not attempted and the patient did not perform the activity before the current illness, exacerbation or injury. 10-Not Attempted due to Environmental Limitations-(lack of equipment, weather restraints, etc.). 88-Not Attempted due to Medical Conditions or Safety Concerns. Lying to Sitting/Side of Bed(Q: 6 Sit to Stand (QC): 4 Weight Bearing Right Lower Extremity: Right Weight Bearing/Tolerated Left Lower Extremity: Left Weight Bearing/Tolerated Gait Training Does the Patient Walk?: Yes Distance: 210' Walk 150 ft (QC): 4 Gait Persons Needed: 1 Gait Assistive Device: Cane Single Point Treatments Pt had finished using urinal shortly before SANITARY CHEMIST arrived for tx. Pt required new bedding, new gown and new depends d/t urine being split on bed. Pt cleaned hi mself up; SANITARY CHEMIST assisted putting on depends, socks, pajama pants and surgical shoes. Pt is Independent when going from supine to sitting on EOB. At EOB SANITARY CHEMIST put on gait belt to prepare for transfer. Pt stood up, at CGA, and pulled up depends and pajama pants (needed VC to pull up depends before pants). SANITARY CHEMIST asked pt to sit back at EOB while a gown was being brought for him to change in too. Pt refused to sit back down, began taking gait belt off and started walking (w/out AD) to the recliner. Pt was instructed to stop d/t needing the gait belt on, chair needed to be locked and pt had an IV. Pt refused and sat in recliner. Pt is impulsive and made a comment regarding other PT staff "just standing there watching". Pt informed other PT staff is training this SANITARY CHEMIST. After gown was put on, pt agreed to ambulate in room w/ SANITARY CHEMIST. Pt ambulates at [facility] w/ single point cane. Pt in recliner, bedside table and call light w/in reach at end of treatment. Assessment Current Status: Good Progress Pt willing to participate in therapy tx, but pt is impulsive and refused to listen to directive from SANITARY CHEMIST and PT. PT Security Checker Goals Security Checker Goals PT Chcf Goals Time Frame: Aug 01, 2019 Roll Left & Right (QC): 6 Sit to Lying (QC): 6 Lying-Sitting on Side/Bed(QC): 6 Sit to Stand (QC): 6 Chair/Bln-sl-Wlyvt Xfer(QC): 6 Walk 10 feet (QC): 6 Walk 50ft with 2 Turns (QC): 6 Walk 150 ft (QC): 6 1 Step (curb) (QC): 4 4 Steps (QC): 4 PT Plan Problem List Problem List: Activity Tolerance, Functional Strength, Safety Treatment/Plan Treatment Plan: Continue Plan of Care Treatment Plan: Education, Functional Activity Nishant, Functional Strength, Gait, Safety, Therapeutic Exercise, Transfers Treatment Duration: Aug 01, 2019 Frequency: 6 times per week Estimated Hrs Per Day: .25 hour per day Patient and/or Family Agrees t: Yes Safety Risks/Education Patient Education: Safety Issues Teaching Recipient: Patient Teaching Methods: Discussion Response to Teaching: Reinforcement Needed Time/GCodes Time In: 828 Time Out: 851 Total Billed Treatment Time: 23 Total Billed Treatment 1 visit, FA x2 (23m) JAS COPPOLA SANITARY CHEMIST Jul 26, 2019 09:26
--- NOTE | 2019-07-26 11:23 | Progress Note - Hospitalist ---
Subjective HPI/CC On Admission Date Seen by Provider: Jul 26, 2019 Time Seen by Provider: 09:45 River Andersen is an 84-year-old male with remote history of DVT currently on Coumadin, recent history of osteomyelitis with multiple toe amputations, who presented with worsening left foot redness, swelling, and purulent drainage. He had a wound VAC on his foot up until about a week ago. He has been following with Dr. Smith in his clinic. He denies any fevers or chills. He denies any nausea or vomiting. He denies any chest pain or shortness of breath. He has no other complaints or concerns. Subjective/Events-last exam He denies any complaints or concerns. He denies any fevers or chills. He denies any chest pain or shortness of breath. Objective Exam Vital Signs Vital Signs Date Time Temp Pulse Resp B/P (MAP) Pulse Ox O2 Delivery O2 Flow Rate FiO2 07/26/19 09:37 Room Air 07/26/19 08:10 36.6 76 20 138/55 (82) 94 2.00 Capillary Refill : Greater Than 3 Seconds General Appearance: No Apparent Distress, Chronically ill Respiratory: Lungs Clear, Normal Breath Sounds, No Respiratory Distress Cardiovascular: Regular Rate, Rhythm, No Murmur Gastrointestinal: Normal Bowel Sounds, Non Tender, Soft Extremity: Pedal Edema, Other (Left foot with bandage in place) Neurologic/Psychiatric: Alert, Oriented x3, No Motor/Sensory Deficits, Normal Mood/Affect Results/Procedures Lab Patient resulted labs reviewed. Assessment/Plan Assessment and Plan Assess & Plan/Chief Complaint Osteomyelitis of the left foot WBC normal, afebrile ESR and CRP moderately elevated MRI with osteomyelitis of the left great toe in the distal phalanx and second metatarsal head Continue vancomycin and Rocephin Wound culture obtained, preliminarily showing MRSA and pansusceptible Proteus Gen. surgery following, appreciate assistance Wound care consulted, appreciate assistance Lower extremity ultrasound with normal SHAHBAZ Check CTA to further evaluate for peripheral arterial disease History of DVT Continue warfarin Prediabetes Sliding scale insulin DVT prophylaxis: Lovenox Diagnosis/Problems Diagnosis/Problems (1) Osteomyelitis of left foot Status: Acute (2) Cellulitis of left foot Status: Acute (3) History of DVT (deep vein thrombosis) Status: Chronic (4) Prediabetes Status: Chronic Clinical Quality Measures DVT/VTE Risk/Contraindication: Risk Factor Score Per Nursin RFS Level Per Nursing on Admit: 4+=Very High JULIA DENISE MD Jul 26, 2019 11:23
[2019-07-26] MEDS ORDERED: VANC1.2524 IV (12:05)
[2019-07-26] MEDS ORDERED: CEFT2VIA12 IV (12:05)
--- NOTE | 2019-07-26 14:56 | Diagnostic Imaging Report ---
INDICATION: Left-sided PICC line placement. TIME OF EXAM: 2:37 p.m. COMPARISON: Correlation is made with prior chest from 05/08/2013. FINDINGS: Left upper extremity PICC line has been placed with the tip in good position overlying the SVC. No pneumothorax is identified. The lungs are clear. The heart size is normal. There is no effusion. IMPRESSION: Satisfactory PICC line placement. Dictated by: Dictated on workstation # [id number]
--- NOTE | 2019-07-26 15:17 | Progress Note - Surgery ---
Subjective Date Seen by a Provider: Jul 26, 2019 Time Seen by a Provider: 15:08 Subjective/Events-last exam No new complaints MRI reviewed osteomyelitis great toe and osteitis of 2/3 metatarsal Patient not wanting surgical intervention. Denies n/v fever sweats chills shortness of breath or chest pain. Objective Exam Vital Signs Date Time Temp Pulse Resp B/P (MAP) Pulse Ox O2 Delivery O2 Flow Rate FiO2 07/26/19 09:37 Room Air 07/26/19 08:10 36.6 76 20 138/55 (82) 94 Nasal Cannula 2.00 07/26/19 08:00 94 Room Air 07/26/19 04:00 36.3 66 22 124/78 (93) 94 Room Air 07/26/19 00:00 36.1 70 20 122/74 (90) 95 Room Air 07/25/19 20:30 Room Air 07/25/19 20:00 36.8 74 20 120/74 (89) Room Air 07/25/19 16:27 36.9 69 18 115/64 (81) 94 Room Air I & O 07/26/19 07:00 Intake Total 800 ml Output Total 875 ml Balance -75 ml Capillary Refill : Greater Than 3 Seconds General Appearance: No Apparent Distress, Chronically ill HEENT: PERRL/EOMI, Normal ENT Inspection, Pharynx Normal Neck: Normal Inspection, Supple Respiratory: Chest Non Tender, No Respiratory Distress Cardiovascular: Regular Rate, Rhythm, No Murmur Gastrointestinal: non tender, soft Extremity: Pedal Edema, Other (left lower extremity with open wound distal foot 2/3 amputation hypergranulation) Neurologic/Psychiatric: Alert, Oriented x3, No Motor/Sensory Deficits, Normal Mood/Affect Skin: Other (Left foot redness and swelling less, right foot normal-appearing post toe amputation changes) Lymphatic: No Adenopathy Results Lab Laboratory Tests 07/25/19 16:07: Glucometer 137H 07/25/19 20:54: Glucometer 155H 07/26/19 05:41: Glucometer 98 07/26/19 05:43: Vancomycin Level Trough 11.0 07/26/19 11:30: Glucometer 134H Microbiology 07/24/19 Gram Stain - Final, Resulted 07/24/19 Anaerobic Culture, Resulted Pending 07/24/19 Surgical Culture - Preliminary, Resulted Proteus mirabilis Staphylococcus aureus Enterobacter aerogenes Assessment/Plan Assessment/Plan Assessment/Plan left foot cellulitis osteomyelitis of left great toe osteitis of 2/3 metatarsals history of osteomyelitis long-term abx continue wound care left foot PICC line ordered Clinical Quality Measures DVT/VTE Risk/Contraindication: Risk Factor Score Per Nursin RFS Level Per Nursing on Admit: 4+=Very High PATRICIA PAREDES DO Jul 26, 2019 15:17
--- NOTE | 2019-07-26 15:23 | NUR ---
CM/SS: Visited with pt as to plan for discharge Plan: Pt will discharge with [facility] with IV antibiotics from [facility] Summary: Pt will be discharged with [facility] with IV antibiotics. Information is faxed to [facility] [phone] and to [facility] [phone]. Pt and daughter are informed of the of the out of pocket cost with [facility], approximately $693.00 per week. They report they are ok to pay the amount. Pt and daughter aware that pt will discharge on Monday and Home Care will see pt on Monday. Pt aware of the plan and is ok at this time. Freddy Man is notified that pt and family are ok with cost and he will arrange to get the antibiotics sent to the pts home. PORHSA Wallace is notified of the plan for pt as he will discharge on tomorrow (Monday)
[2019-07-26] MEDS ORDERED: HOLD METFORMIN - RECEIVED CONTRAST 20 ML VIAL IV SCH (17:00)
[2019-07-26] MEDS ORDERED: IOHEXOL 350 MG/ML 100 ML (OMNIPAQUE 350) VIAL IV ONE (17:00)
[2019-07-26] MEDS ORDERED: NS 100 ML (IVPB) BAG IV ONE (17:00)
--- NOTE | 2019-07-26 17:29 | Diagnostic Imaging Report ---
INDICATION: Osteomyelitis, possible peripheral vascular disease. Previous toe amputation, history of prostate cancer. TECHNIQUE: CT scanning was obtained from the level of the mid kidneys through the feet. MIPS reformats were performed. FINDINGS: The visualized abdominal and pelvic contents appear unremarkable. Some clips or seeds are seen around the prostate gland. A few diverticuli are present in the colon. There are simple cysts of the left kidney. Amputations of the right 2nd toe and left 2nd and 3rd toes are present. No fluid collections are present. 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 No stenosis or dissection are present in the iliac vessels. The right lower extremity runoff demonstrates the right common femoral, profunda femoral, superficial femoral and popliteal artery to be normal. The contrast below this is absent suggestive of a distal popliteal artery occlusion. No vascular calcifications are seen. This could be an embolic event to the popliteal artery. Ultrasound could be helpful for further evaluation. The left lower extremity runoff demonstrates the profundofemoral, superficial femoral and popliteal artery to be normal. There is normal trifurcation. Three-vessel runoff is present to the ankle. Dorsalis pedis artery appears normal. IMPRESSION: 1. 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 2. There is occlusion of the mid to distal aspect of the popliteal artery with no flow seen below this. An ultrasound could be helpful for further evaluation. 3. The left lower extremity arterial supply appears normal. Dictated by: Dictated on workstation # [id number]
--- NOTE | 2019-07-26 18:41 | NUR ---
UPON DISCHARGE, CNC SERVICE ENGINEER STATED NURSING STAFF NEEDED TO FAX DISCHARGE SUMMARY TO [facility] (FAX NUMBER [phone])) AND TO CALL VALERIE AT [phone] ASK FOR IRVIN HERNDON TO GO OVER IV ANTIBIOTICS PT IS DISCHARGING WITH. THIS RN ATTEMPTED TO CALL IRVIN AT [facility] WITH NO ANSWER. WILL PASS ALONG IN REPORT.
[2019-07-26] MEDS: ENOXAPARIN 40 MG/0.4 ML (LOVENOX) SYR SC SCH (19:56)
[2019-07-27 00:10] VITALS: BP 131/86
[2019-07-27 04:10] VITALS: BP 128/76
[2019-07-27] MEDS: inSUlin ASPART (NovoLOG) 1 UNIT/0.01 ML (CHARGE PER UNIT) SC SCH ×2 (06:15→10:53)
[2019-07-27] MEDS ORDERED: VANCOMYCIN INJECTION 2,250 MG in NS IV 500 ML 500 ML IV SCH (07:00)
[2019-07-27 08:00] VITALS: BP 161/85
[2019-07-27] MEDS: DOCUSATE SODIUM 100 MG (COLACE) CAP PO SCH (08:49)
[2019-07-27] MEDS: cefTRIAXone FOR IV USE 2,000 MG in WATER (STERILE) FOR INJECTION 20 ML IV SCH (08:49)
[2019-07-27] MEDS: SENNOSIDES 8.6 MG (SENOKOT) TAB PO SCH (08:49)
[2019-07-27 09:15] LABS: BUN/CREATININE RATIO 11; CALCIUM 8.3 MG/DL (8.5-10.1); CARBON DIOXIDE 22 MMOL/L (21-32); CHLORIDE 107 MMOL/L (98-107); CREATININE SERUM 0.73 MG/DL (0.60-1.30); GFR ESTIMATED > 60; GLUCOSE 122 MG/DL (70-105); POTASSIUM 4.1 MMOL/L (3.6-5.0); SODIUM 141 MMOL/L (135-145)
[2019-07-27] MEDS: NS IV 1000 ML 1,000 ML IV SCH (09:55)
[2019-07-27] MEDS ORDERED: METF-478 PO (11:26)
[2019-07-27] MEDS ORDERED: ATOR40TA70 PO (11:26)
[2019-07-27 12:00] VITALS: BP 137/65
--- NOTE | 2019-07-27 12:21 | Physical Therapy Progress Note ---
Therapy Progress Note Patient on contact isolotation. Pt reported he has been walking in room with assist of nursing and is planning to go home today. No treatment rendered due to patient active with nursing. BERONICA PATEL PT Jul 27, 2019 12:21
--- NOTE | 2019-07-27 12:25 | NUR ---
THIS RN COMPLETED DISCHARGE PAPERWORK. DISCHARGE SUMMARY ALONG WITH PRESCRIPTIONS FAXED TO [facility] AND PLEDGER. THIS RN ATTEMPTED TO CONTACT IRVIN HERNDON WITH [facility], NO ANSWER.
--- NOTE | 2019-07-27 12:32 | Discharge Summary ---
Discharge Summary Reconcile Patient Problems Problems Reviewed?: Yes Instructions for Patient Via [facility], Assessment/Instructions take medications as prescribed. Participate in therapies. Follow up with the wound care clinic. Follow-up with your primary care physician. Physician to follow Patient: Charly Discharge Diet for Home: ADA Diet Hospital Course Date of Admission: Jul 24, 2019 at 15:22 Admission Diagnosis : cellulitis of the left foot Family Physician/Provider: Vin Parks MD Date of Discharge: 07/27/19 Discharge Diagnosis: osteomyelitis of the left foot Hospital Course: River Andersen is an 84-year-old male who was admitted with cellulitis of the left foot and was found to have osteomyelitis. He was recently admitted with osteomyelitis and had several toes amputated. He has been followed by wound care and surgery since that time and has had a worsening cellulitis of his left foot. MRI revealed left great toe osteomyelitis as well as possible early osteomyelitis of the second metatarsal head with osteitis of the third and fourth digits. A culture of the wound grew staph aureus, Proteus, and Enterobacter. The Enterobacter and Proteus were both susceptible to ceftriaxone. The susceptibilities for the staph aureus were pending at the time of discharge, but initial testing was consistent with presumptive MRSA. He was treated with vancomycin and ceftriaxone while in the hospital and this will be continued with home health on discharge for at least 6 weeks. He will have weekly labs to monitor vancomycin levels, kidney function, and inflammatory markers. He underwent both a lower extremity ultrasound and a CT angiogram to evaluate for peripheral artery disease. This revealed good blood flow to the left lower extremity. He was found to have a small AAA as well as a right common femoral aneurysm. The CTA also showed poor blood flow past the popliteal, but the ultrasound showed normal ABIs. He should follow-up with his primary care physician, Dr. Parks. He will have a follow-up appointment with the wound clinic, Dr. Mesa. He will follow with Dr. Smith, surgery, as well. Labs and Pending Lab Test: Laboratory Tests 07/26/19 17:03: Glucometer 104 07/26/19 20:47: Glucometer 111H 07/27/19 05:34: Glucometer 101 07/27/19 08:26: Sodium Level 141, Potassium Level 4.1, Chloride Level 107, Carbon Dioxide Level 22, Anion Gap 12, Blood Urea Nitrogen 8, Creatinine 0.73, Estimat Glomerular Filtration Rate > 60, BUN/Creatinine Ratio 11, Glucose Level 122H, Calcium Level 8.3L 07/27/19 10:51: Glucometer 114H Microbiology 07/24/19 Gram Stain - Final, Resulted 07/24/19 Anaerobic Culture, Resulted Pending 07/24/19 Surgical Culture - Preliminary, Resulted Proteus mirabilis Staphylococcus aureus Enterobacter aerogenes Home Meds Active Atorvastatin Calcium 40 Mg Tablet 40 Mg PO HS 90 Days Metformin HCl ER (Metformin HCl) 500 Mg Tab.er.24 500 Mg PO DAILY 90 Days Ceftriaxone (Ceftriaxone Sodium) 2 Gm/Vial Soln 2 Gm IV DAILY 42 Days Vancomycin HCl 1.25 Gm Vial 2.25 Gm IV DAILY 42 Days Reported Miralax (Polyethylene Glycol 3350) 17 Gm Powd.pack 17 Gm PO DAILY PRN Warfarin Sodium 5 Mg Tablet 5 Mg PO HS Consulations surgery, wound care Patient Allergies: Coded Allergies: Penicillins (Unverified Allergy, Unknown, RASH, 05/22/19) Height (Feet): 6 Height (Inches): 1.00 Weight (Pounds): 249 Home Health Need/Face to Face Date of Face to Face: Jul 27, 2019 Clinical Findings: Generalized weakness and fatigue, Instability, Muscle weakness, Wound infection I have seen Pt [id number]: Yes Discharged To: Home Diagnosis/Conditions: osteomyelitis Problems/Diagnosis/Condition: (1) Osteomyelitis of left foot Patient is Homebound due to: Lu fall risk due to instabilty Homebound Status Due to the above stated illness, injury or surgical procedure (medical c ondition or diagnosis) and associated clinical findings, the patient is homebound because of his/her inability to leave home except with aid of a supportive device and/or person AND leaving the home requires a considerable and taxing effort or is medically contraindicated. Pt req the following assistanc: Aid of another person Home Health Nursing Orders Home Health Services Order: Nursing Services, Cable Former-Evaluate & Treat, Physical Therapy-Evaluate & Treat, Wound Care-Eval/Treat Home Health Infusion Therapy Line Start Date: Jul 26, 2019 Home Health Lab Orders Labs (specify type/freq): CMP/ESR/CRP/Vanc trough weekly Therapy Orders Therapy Orders: OT (must have SN or PT order), Physical Therapy Therapy Specific Orders: Eval assistive deivces, Gait training, Increase strength/endurance Certify Stmt I certify that this patient is under my care and that I, a nurse practitioner or a physician; a office assistant receptionist working with me, had a face to face encounter that - meets the physician face to face encounter requirements with this patient as dated. Discharge Physical Exam General: Alert, Oriented X3, Cooperative, No Acute Distress HEENT: Atraumatic, EOMI, Mucous Memb Moist/Grill Lungs: Clear to Auscultation, Normal Air Movement Heart: Regular Rate, Normal S1, Normal S2, No Murmurs Abdomen: Normal Bowel Sounds, Soft, No Tenderness Extremities: No Tenderness/Swelling, Other (mild edema, bilateral toe amputations, bandage in place on left foot) Skin: Other (left foot wound with bandage in place) Neuro: Normal Speech, Normal Tone Psych/Mental Status: Mental Status NL, Mood NL JULIA DENISE MD Jul 27, 2019 12:27
[2019-07-27 13:50] VITALS: BP 137/65
--- NOTE | 2019-07-27 16:49 | Progress Note - Surgery ---
Subjective Date Seen by a Provider: Jul 27, 2019 Time Seen by a Provider: 11:43 Subjective/Events-last exam Patient no new complaints. Still not wanting surgery, wanting conservative measures. No pain. Denies n/v fever sweats chills shortness of breath or chest pain. left foot improving. Objective Exam Vital Signs Date Time Temp Pulse Resp B/P (MAP) Pulse Ox O2 Delivery O2 Flow Rate FiO2 07/27/19 13:50 36.0 64 18 137/65 95 Room Air 07/27/19 12:00 35.9 64 18 137/65 (89) 95 Room Air 07/27/19 09:00 Room Air 07/27/19 08:00 36.0 70 18 161/85 (110) 100 Room Air 07/27/19 04:10 36.4 67 18 128/76 (93) 96 Room Air 07/27/19 00:10 36.1 78 18 131/86 (101) 96 Room Air 07/26/19 20:02 97 Room Air 07/26/19 19:58 36.3 70 20 141/81 (101) 97 Room Air 07/26/19 17:00 36.8 77 20 151/88 (109) 95 Room Air I & O 07/27/19 07:00 Intake Total 2150 ml Output Total 525 ml Balance 1625 ml Capillary Refill : Greater Than 3 Seconds General Appearance: No Apparent Distress, Chronically ill HEENT: PERRL/EOMI, Normal ENT Inspection, Pharynx Normal Neck: Normal Inspection, Supple Respiratory: Chest Non Tender, No Respiratory Distress Cardiovascular: Regular Rate, Rhythm, No Murmur Gastrointestinal: non tender, soft Extremity: Pedal Edema, Other (left lower extremity with open wound distal foot 2/3 amputation hypergranulation less erythema/edema) Neurologic/Psychiatric: Alert, Oriented x3, No Motor/Sensory Deficits, Normal Mood/Affect Skin: Other (Left foot redness and swelling still less today, right foot normal-appearing post toe amputation changes) Lymphatic: No Adenopathy Results Lab Laboratory Tests 07/26/19 17:03: Glucometer 104 07/26/19 20:47: Glucometer 111H 07/27/19 05:34: Glucometer 101 07/27/19 08:26: Sodium Level 141, Potassium Level 4.1, Chloride Level 107, Carbon Dioxide Level 22, Anion Gap 12, Blood Urea Nitrogen 8, Creatinine 0.73, Estimat Glomerular Filtration Rate > 60, BUN/Creatinine Ratio 11, Glucose Level 122H, Calcium Level 8.3L 07/27/19 10:51: Glucometer 114H Microbiology 07/24/19 Gram Stain - Final, Resulted 07/24/19 Anaerobic Culture, Resulted Pending 07/24/19 Surgical Culture - Preliminary, Resulted Proteus mirabilis Staphylococcus aureus Enterobacter aerogenes Assessment/Plan Assessment/Plan Assessment/Plan left foot cellulitis osteomyelitis of left great toe osteitis of 2/3 metatarsals history of osteomyelitis long-term abx continue wound care left foot conservative measures will follow in wound care okay to ks home today from surgical standpoint with follow up Clinical Quality Measures DVT/VTE Risk/Contraindication: Risk Factor Score Per Nursin RFS Level Per Nursing on Admit: 4+=Very High PATRICIA PAREDES DO Jul 27, 2019 16:49
== END 2019-07-27 13:50 | disposition home health service (06) | DRG 540 ==
LOC: 4TH 15:22
PROVIDERS: ADMIT Surgery; ATTEND Surgery
DX: M86.9 Osteomyelitis, unspecified (principal); L03.116 Cellulitis of left lower limb; B95.62 Methicillin resistant Staphylococcus aureus infection as the cause of diseases classified elsewhere; B96.4 Proteus (mirabilis) (morganii) as the cause of diseases classified elsewhere; B96.89 Other specified bacterial agents as the cause of diseases classified elsewhere; C61 Malignant neoplasm of prostate; R73.03 Prediabetes; Z92.3 Personal history of irradiation; Z89.421 Acquired absence of other right toe(s); Z87.39 Personal history of other diseases of the musculoskeletal system and connective tissue; Z86.718 Personal history of other venous thrombosis and embolism; Z79.01 Long term (current) use of anticoagulants
CPT/HCPCS: 36415; 36569; 71045; 73720; 76937; 80048; 80202; 82962; 85025; 85027; 85610; 85652; 85730; 86141; 87070; 87075; 87076; 87077; 87186; 87205; 93923

== ENCOUNTER 2019-07-30 14:01 | Outpatient (RCR) | payer MEDICARE, OTHER ==
[2019-07-30 15:04] LABS: HEMATOCRIT 36 % (40-54); HEMOGLOBIN 10.9 G/DL (13.3-17.7); MEAN CORPUSCULAR HEMOGLOBIN 30 PG (25-34); MEAN CORPUSCULAR VOLUME 96 FL (80-99); WHITE BLOOD COUNT 5.1 10^3/uL (4.3-11.0)
[2019-07-30 15:05] LABS: BASOPHILS % (AUTO) 1 % (0-10); EOSINOPHILS # (AUTO) 0.2 10^3/uL (0.0-0.3); EOSINOPHILS % (AUTO) 4 % (0-10); LYMPHOCYTES # (AUTO) 1.2 X 10^3 (1.0-4.0); LYMPHOCYTES % (AUTO) 24 % (12-44); MEAN CORPUSCULAR HGB CONC 30 G/DL (32-36); MEAN PLATELET VOLUME 10.2 FL (7.4-10.4); MONOCYTES # (AUTO) 0.3 X 10^3 (0.0-1.0); MONOCYTES % (AUTO) 5 % (0-12); NEUTROPHILS # (AUTO) 3.4 X 10^3 (1.8-7.8); NEUTROPHILS % (AUTO) 66 % (42-75); PLATELET COUNT 269 10^3/uL (130-400); RED CELL DISTRIBUTION WIDTH 16.6 % (10.0-14.5)
[2019-07-30 15:17] LABS: ERYTHROCYTE SEDIMENTATION RATE 60 MM/HR (0-30)
== END 2019-10-28 | disposition home or self-care (01) ==
LOC: LAB FS 14:01
PROVIDERS: ATTEND Pediatrics
DX: S98.212 Complete traumatic amputation of two or more left lesser toes (principal)
CPT/HCPCS: 36415; 85025; 85652

== ENCOUNTER → 2019-07-30 | Outpatient (CLI) | payer MEDICARE, OTHER ==
[~2019-07-30] MED LIST changes: +ATOR40TA70 PO; +CEFT2VIA12 IV; +METF-478 PO; +POLY17PO6 PO; +VANC1.2524 IV
== END ==
LOC: WOUNDCARE 13:19
PROVIDERS: ATTEND Surgery
DX: E11.621 Type 2 diabetes mellitus with foot ulcer (principal); E11.42 Type 2 diabetes mellitus with diabetic polyneuropathy; L97.522 Non-pressure chronic ulcer of other part of left foot with fat layer exposed; M86.472 Chronic osteomyelitis with draining sinus, left ankle and foot
CPT/HCPCS: 11042

== ENCOUNTER → 2019-07-31 | Outpatient (CLI) | payer MEDICARE, OTHER ==
[2019-07-31 14:58] LABS: ALANINE AMINOTRANSFERASE 15 U/L (0-55); ALBUMIN 3.4 GM/DL (3.2-4.5); ALKALINE PHOSPHATASE 72 U/L (40-136); BILIRUBIN,TOTAL 0.2 MG/DL (0.1-1.0); BUN/CREATININE RATIO 22; CALCIUM 8.5 MG/DL (8.5-10.1); CARBON DIOXIDE 27 MMOL/L (21-32); CHLORIDE 104 MMOL/L (98-107); CREATININE SERUM 0.64 MG/DL (0.60-1.30); GFR ESTIMATED > 60; GLUCOSE 150 MG/DL (70-105); POTASSIUM 3.5 MMOL/L (3.6-5.0); SODIUM 144 MMOL/L (135-145); TOTAL PROTEIN 6.9 GM/DL (6.4-8.2); VANCOMYCIN,TROUGH 11.6 UG/ML (10.0-20.0)
== END ==
LOC: LAB FS 13:21
PROVIDERS: ATTEND Pediatrics
DX: S98.212 Complete traumatic amputation of two or more left lesser toes (principal)
CPT/HCPCS: 36415; 80053; 80202; 86141

== ENCOUNTER → 2019-08-02 | Outpatient (CLI) | payer MEDICARE, OTHER ==
[2019-08-02 12:26] LABS: INR 1.2 (0.8-1.4); PROTHROMBIN TIME PATIENT 15.9 SEC (12.2-14.7)
== END ==
LOC: LAB FS 11:57
PROVIDERS: ATTEND Pediatrics
DX: Z51.81 Encounter for therapeutic drug level monitoring (principal); T87.89 Other complications of amputation stump; Z86.718 Personal history of other venous thrombosis and embolism; Z79.01 Long term (current) use of anticoagulants
CPT/HCPCS: 36415; 85610

== ENCOUNTER → 2019-08-06 | Outpatient (CLI) | payer MEDICARE, OTHER | LOC: WOUNDCARE 12:30 | PROVIDERS: ATTEND Surgery | DX: E11.621 Type 2 diabetes mellitus with foot ulcer (principal); E11.42 Type 2 diabetes mellitus with diabetic polyneuropathy; L97.522 Non-pressure chronic ulcer of other part of left foot with fat layer exposed; M86.472 Chronic osteomyelitis with draining sinus, left ankle and foot | CPT/HCPCS: 11042 ==

== ENCOUNTER → 2019-08-06 | Outpatient (CLI) | payer MEDICARE, OTHER ==
[~2019-08-06] MED LIST changes: +ALTEPLASE 2 MG (CATHFLO) IV ONE; +ALTEPLASE 2 MG (CATHFLO) ONE; +WATER (STERILE) FOR INJ 10 ML BTL IV PRN
--- NOTE | 2019-08-06 12:40 | Diagnostic Imaging Report ---
INDICATION: PICC line placement. Time of exam 12:24 PM Correlation is made with prior chest from 07/26/2019. Left upper extremity PICC line appears to have the tip overlying the SVC. Lungs are clear. The pulmonary vascularity is normal. No infiltrate, effusion or pneumothorax is detected. IMPRESSION: PICC line placement. No acute feature is detected. Dictated by: Dictated on workstation # [id number]
--- NOTE | 2019-08-06 13:09 | NUR ---
THIS RN FLUSHED BOTH LINES IN PICC WITH 50 CC NACL. BOTH LINES PATENT BUT WILL NOT DRAW BACK BLOOD. CXR OBTAINED AND PICC PLACEMENT IN CORRECT POSITION. DR. LARA NOTIFIED. SINCE PICC PLACEMENT CORRECT, NO NEW ORDERS.
--- NOTE | 2019-08-06 13:20 | NUR ---
PT NOT SATISFIED WITH LEAVING PICC IS. THIS RN CALLED DR. LARA TO SEE IF HE WOULD LIKE PICC FLUSHED WITH CATHFLOW. RECEIVED ORDER FOR CATHFLOW.
--- NOTE | 2019-08-06 13:30 | NUR ---
CATHFLOW ADMINISTERED TO PICC IN RED PORT BY PORSHA KHAN.
--- NOTE | 2019-08-06 14:00 | NUR ---
BLOOD ASPIRATED FROM LUMEN CATHFLOW ADMINISTERED IN BY PORSHA KHAN. 10 CC BLOOD WITHDRAWN AND THE PICC FLUSHED WITH 60 CC OF SALINE.
== END ==
LOC: SDC 11:07
PROVIDERS: ATTEND Pediatrics
DX: Z03.89 Encounter for observation for other suspected diseases and conditions ruled out (principal); Z45.2 Encounter for adjustment and management of vascular access device
CPT/HCPCS: 36593; 71045

== ENCOUNTER → 2019-08-07 | Outpatient (CLI) | payer MEDICARE, OTHER ==
[~2019-08-07] MED LIST changes: -ALTEPLASE 2 MG (CATHFLO) IV ONE; -ALTEPLASE 2 MG (CATHFLO) ONE; -WATER (STERILE) FOR INJ 10 ML BTL IV PRN
[2019-08-07 12:11] LABS: BASOPHILS % (AUTO) 1 % (0-10); EOSINOPHILS % (AUTO) 4 % (0-10); HEMATOCRIT 37 % (40-54); HEMOGLOBIN 11.4 G/DL (13.3-17.7); LYMPHOCYTES # (AUTO) 1.3 X 10^3 (1.0-4.0); LYMPHOCYTES % (AUTO) 24 % (12-44); MEAN CORPUSCULAR HEMOGLOBIN 29 PG (25-34); MEAN CORPUSCULAR HGB CONC 31 G/DL (32-36); MEAN CORPUSCULAR VOLUME 94 FL (80-99); MEAN PLATELET VOLUME 10.2 FL (7.4-10.4); MONOCYTES % (AUTO) 5 % (0-12); NEUTROPHILS # (AUTO) 3.5 X 10^3 (1.8-7.8); NEUTROPHILS % (AUTO) 66 % (42-75); PLATELET COUNT 302 10^3/uL (130-400); RED CELL DISTRIBUTION WIDTH 17.1 % (10.0-14.5); WHITE BLOOD COUNT 5.3 10^3/uL (4.3-11.0)
[2019-08-07 12:12] LABS: BASOPHILS # (AUTO) 0.1 10^3/uL (0.0-0.1); EOSINOPHILS # (AUTO) 0.2 10^3/uL (0.0-0.3); MONOCYTES # (AUTO) 0.3 X 10^3 (0.0-1.0)
[2019-08-07 12:31] LABS: BUN/CREATININE RATIO 37; CARBON DIOXIDE 26 MMOL/L (21-32); CHLORIDE 95 MMOL/L (98-107); CREATININE SERUM 0.49 MG/DL (0.60-1.30); GFR ESTIMATED > 60; GLUCOSE 192 MG/DL (70-105); SODIUM 133 MMOL/L (135-145)
[2019-08-07 12:32] LABS: ALANINE AMINOTRANSFERASE 12 U/L (0-55); ALBUMIN 3.7 GM/DL (3.2-4.5); ALKALINE PHOSPHATASE 81 U/L (40-136); BILIRUBIN,TOTAL 0.3 MG/DL (0.1-1.0); CALCIUM 9.2 MG/DL (8.5-10.1); TOTAL PROTEIN 7.8 GM/DL (6.4-8.2); VANCOMYCIN,TROUGH 11.2 UG/ML (10.0-20.0)
[2019-08-07 13:26] LABS: ERYTHROCYTE SEDIMENTATION RATE 70 MM/HR (0-30)
== END ==
LOC: LAB FS 11:38
PROVIDERS: ATTEND Pediatrics
DX: L03.116 Cellulitis of left lower limb (principal); M86.472 Chronic osteomyelitis with draining sinus, left ankle and foot
CPT/HCPCS: 36415; 80053; 80202; 85025; 85652; 86141

== ENCOUNTER → 2019-08-12 | Outpatient (CLI) | payer MEDICARE, OTHER ==
[2019-08-12 11:27] LABS: HEMATOCRIT 39 % (40-54); HEMOGLOBIN 12.1 G/DL (13.3-17.7); MEAN CORPUSCULAR HEMOGLOBIN 29 PG (25-34); MEAN CORPUSCULAR HGB CONC 31 G/DL (32-36); MEAN CORPUSCULAR VOLUME 94 FL (80-99); MEAN PLATELET VOLUME 10.2 FL (7.4-10.4); PLATELET COUNT 264 10^3/uL (130-400); RED CELL DISTRIBUTION WIDTH 17.1 % (10.0-14.5); WHITE BLOOD COUNT 4.4 10^3/uL (4.3-11.0)
[2019-08-12 11:28] LABS: BASOPHILS % (AUTO) 1 % (0-10); EOSINOPHILS % (AUTO) 4 % (0-10); LYMPHOCYTES % (AUTO) 28 % (12-44); MONOCYTES % (AUTO) 8 % (0-12)
[2019-08-12 11:29] LABS: EOSINOPHILS # (AUTO) 0.2 10^3/uL (0.0-0.3); LYMPHOCYTES # (AUTO) 1.2 X 10^3 (1.0-4.0); MONOCYTES # (AUTO) 0.4 X 10^3 (0.0-1.0); NEUTROPHILS # (AUTO) 2.6 X 10^3 (1.8-7.8); NEUTROPHILS % (AUTO) 59 % (42-75)
[2019-08-12 11:35] LABS: INR 4.9 (0.8-1.4); PROTHROMBIN TIME PATIENT 47.7 SEC (12.2-14.7)
[2019-08-12 12:12] LABS: ERYTHROCYTE SEDIMENTATION RATE 58 MM/HR (0-30)
[2019-08-12 12:29] LABS: ALKALINE PHOSPHATASE 76 U/L (40-136); BILIRUBIN,TOTAL 0.2 MG/DL (0.1-1.0); BUN/CREATININE RATIO 23; CALCIUM 8.8 MG/DL (8.5-10.1); CARBON DIOXIDE 28 MMOL/L (21-32); CHLORIDE 103 MMOL/L (98-107); CREATININE SERUM 0.74 MG/DL (0.60-1.30); GFR ESTIMATED > 60; GLUCOSE 131 MG/DL (70-105); POTASSIUM 4.1 MMOL/L (3.6-5.0); SODIUM 142 MMOL/L (135-145)
[2019-08-12 12:30] LABS: ALANINE AMINOTRANSFERASE 12 U/L (0-55); ALBUMIN 3.8 GM/DL (3.2-4.5); TOTAL PROTEIN 7.7 GM/DL (6.4-8.2); VANCOMYCIN,TROUGH 13.6 UG/ML (10.0-20.0)
== END ==
LOC: LAB FS 10:43
PROVIDERS: ATTEND Pediatrics
DX: Z79.01 Long term (current) use of anticoagulants (principal)
CPT/HCPCS: 36415; 80053; 80202; 85025; 85610; 85652; 86141

== ENCOUNTER → 2019-08-13 | Outpatient (CLI) | payer MEDICARE, OTHER | LOC: WOUNDCARE 12:33 | PROVIDERS: ATTEND Surgery | DX: E11.621 Type 2 diabetes mellitus with foot ulcer (principal); E11.42 Type 2 diabetes mellitus with diabetic polyneuropathy; L97.522 Non-pressure chronic ulcer of other part of left foot with fat layer exposed | CPT/HCPCS: 11042 ==

== ENCOUNTER → 2019-08-15 | Outpatient (CLI) | payer MEDICARE, OTHER ==
[2019-08-15 13:07] LABS: INR 2.1 (0.8-1.4); PROTHROMBIN TIME PATIENT 24.6 SEC (12.2-14.7)
== END ==
LOC: LAB FS 11:03
PROVIDERS: ATTEND Pediatrics
DX: L03.116 Cellulitis of left lower limb (principal); Z86.718 Personal history of other venous thrombosis and embolism; Z79.01 Long term (current) use of anticoagulants
CPT/HCPCS: 36415; 85610

== ENCOUNTER → 2019-08-19 | Outpatient (CLI) | payer MEDICARE, OTHER ==
[2019-08-19 12:26] LABS: ALKALINE PHOSPHATASE 82 U/L (40-136); BILIRUBIN,TOTAL 0.3 MG/DL (0.1-1.0); BUN/CREATININE RATIO 23; CALCIUM 8.9 MG/DL (8.5-10.1); CARBON DIOXIDE 27 MMOL/L (21-32); CHLORIDE 102 MMOL/L (98-107); CREATININE SERUM 0.71 MG/DL (0.60-1.30); GFR ESTIMATED > 60; GLUCOSE 116 MG/DL (70-105); POTASSIUM 4.1 MMOL/L (3.6-5.0); SODIUM 141 MMOL/L (135-145)
[2019-08-19 12:27] LABS: ALANINE AMINOTRANSFERASE 13 U/L (0-55); ALBUMIN 3.7 GM/DL (3.2-4.5); TOTAL PROTEIN 7.4 GM/DL (6.4-8.2); VANCOMYCIN,TROUGH 12.1 UG/ML (10.0-20.0)
[2019-08-19 12:32] LABS: HEMATOCRIT 38 % (40-54); HEMOGLOBIN 11.7 G/DL (13.3-17.7); MEAN CORPUSCULAR HEMOGLOBIN 29 PG (25-34); WHITE BLOOD COUNT 5.2 10^3/uL (4.3-11.0)
[2019-08-19 12:33] LABS: BASOPHILS % (AUTO) 0 % (0-10); EOSINOPHILS # (AUTO) 0.2 10^3/uL (0.0-0.3); EOSINOPHILS % (AUTO) 3 % (0-10); ERYTHROCYTE SEDIMENTATION RATE 52 MM/HR (0-30); LYMPHOCYTES # (AUTO) 1.3 X 10^3 (1.0-4.0); LYMPHOCYTES % (AUTO) 25 % (12-44); MEAN CORPUSCULAR HGB CONC 31 G/DL (32-36); MEAN CORPUSCULAR VOLUME 94 FL (80-99); MEAN PLATELET VOLUME 10.6 FL (7.4-10.4); MONOCYTES # (AUTO) 0.4 X 10^3 (0.0-1.0); MONOCYTES % (AUTO) 8 % (0-12); NEUTROPHILS # (AUTO) 3.3 X 10^3 (1.8-7.8); NEUTROPHILS % (AUTO) 64 % (42-75); PLATELET COUNT 200 10^3/uL (130-400); RED CELL DISTRIBUTION WIDTH 17.1 % (10.0-14.5)
== END ==
LOC: IHC 11:43
PROVIDERS: ATTEND Pediatrics
DX: Z51.81 Encounter for therapeutic drug level monitoring (principal); T87.44 Infection of amputation stump, left lower extremity; L03.116 Cellulitis of left lower limb; M86.472 Chronic osteomyelitis with draining sinus, left ankle and foot; Z79.899 Other long term (current) drug therapy
CPT/HCPCS: 36415; 80053; 80202; 85025; 85652; 86141

== ENCOUNTER → 2019-08-20 | Outpatient (CLI) | payer MEDICARE, OTHER | LOC: WOUNDCARE 12:20 | PROVIDERS: ATTEND Surgery | DX: E11.621 Type 2 diabetes mellitus with foot ulcer (principal); E11.42 Type 2 diabetes mellitus with diabetic polyneuropathy; L97.522 Non-pressure chronic ulcer of other part of left foot with fat layer exposed; M86.472 Chronic osteomyelitis with draining sinus, left ankle and foot | CPT/HCPCS: 11042 ==

== ENCOUNTER → 2019-08-21 | Outpatient (CLI) | payer MEDICARE, OTHER ==
[2019-08-21 12:24] LABS: INR 1.4 (0.8-1.4)
== END ==
LOC: IHC 11:36
PROVIDERS: ATTEND Pediatrics
DX: Z51.81 Encounter for therapeutic drug level monitoring (principal); Z79.01 Long term (current) use of anticoagulants; Z86.718 Personal history of other venous thrombosis and embolism
CPT/HCPCS: 36415; 85610

== ENCOUNTER → 2019-08-26 | Outpatient (CLI) | payer MEDICARE, OTHER ==
[2019-08-26 13:41] LABS: INR 1.8 (0.8-1.4); PROTHROMBIN TIME PATIENT 21.4 SEC (12.2-14.7)
[2019-08-26 14:54] LABS: CHLORIDE 105 MMOL/L (98-107); POTASSIUM 3.9 MMOL/L (3.6-5.0); SODIUM 143 MMOL/L (135-145)
[2019-08-26 14:55] LABS: ALANINE AMINOTRANSFERASE 11 U/L (0-55); ALKALINE PHOSPHATASE 79 U/L (40-136); BILIRUBIN,TOTAL 0.3 MG/DL (0.1-1.0); BUN/CREATININE RATIO 20; CALCIUM 8.8 MG/DL (8.5-10.1); CARBON DIOXIDE 27 MMOL/L (21-32); CREATININE SERUM 0.74 MG/DL (0.60-1.30); GFR ESTIMATED > 60; GLUCOSE 99 MG/DL (70-105); TOTAL PROTEIN 7.3 GM/DL (6.4-8.2)
[2019-08-26 14:56] LABS: ALBUMIN 3.5 GM/DL (3.2-4.5); VANCOMYCIN,TROUGH 11.6 UG/ML (10.0-20.0)
[2019-08-26 15:04] LABS: BASOPHILS % (AUTO) 0 % (0-10); EOSINOPHILS # (AUTO) 0.2 10^3/uL (0.0-0.3); EOSINOPHILS % (AUTO) 4 % (0-10); HEMATOCRIT 37 % (40-54); HEMOGLOBIN 11.3 G/DL (13.3-17.7); LYMPHOCYTES # (AUTO) 1.3 X 10^3 (1.0-4.0); LYMPHOCYTES % (AUTO) 24 % (12-44); MEAN CORPUSCULAR HEMOGLOBIN 29 PG (25-34); MEAN CORPUSCULAR HGB CONC 30 G/DL (32-36); MEAN CORPUSCULAR VOLUME 96 FL (80-99); MONOCYTES # (AUTO) 0.4 X 10^3 (0.0-1.0); MONOCYTES % (AUTO) 8 % (0-12); NEUTROPHILS # (AUTO) 3.4 X 10^3 (1.8-7.8); NEUTROPHILS % (AUTO) 64 % (42-75); PLATELET COUNT 242 10^3/uL (130-400); RED CELL DISTRIBUTION WIDTH 16.9 % (10.0-14.5); WHITE BLOOD COUNT 5.3 10^3/uL (4.3-11.0)
[2019-08-26 15:05] LABS: ERYTHROCYTE SEDIMENTATION RATE 54 MM/HR (0-30)
== END ==
LOC: LAB FS 12:20
PROVIDERS: ATTEND Pediatrics
DX: L03.116 Cellulitis of left lower limb (principal); M86.9 Osteomyelitis, unspecified
CPT/HCPCS: 36415; 80053; 80202; 85025; 85610; 85652; 86141

== ENCOUNTER 2019-08-27 11:00 | Outpatient (CLI) | payer MEDICARE, OTHER ==
[2019-08-27 11:05] VITALS: BP 144/79
[2019-08-27] MEDS ORDERED: ALTEPLASE 2 MG (CATHFLO) IV PRN (12:00)
== END 2019-08-27 12:05 | disposition home or self-care (01) ==
LOC: SDC 11:00
PROVIDERS: ATTEND Pediatrics
DX: Z45.2 Encounter for adjustment and management of vascular access device (principal)
CPT/HCPCS: 96523

== ENCOUNTER → 2019-08-27 | Outpatient (CLI) | payer MEDICARE, OTHER | LOC: WOUNDCARE 12:19 | PROVIDERS: ATTEND Surgery | DX: E11.621 Type 2 diabetes mellitus with foot ulcer (principal); E11.42 Type 2 diabetes mellitus with diabetic polyneuropathy; L97.522 Non-pressure chronic ulcer of other part of left foot with fat layer exposed; M86.472 Chronic osteomyelitis with draining sinus, left ankle and foot; L92.8 Other granulomatous disorders of the skin and subcutaneous tissue | CPT/HCPCS: 17250 ==

== ENCOUNTER → 2019-09-02 | Outpatient (CLI) | payer MEDICARE, OTHER ==
[2019-09-02 12:54] LABS: HEMOGLOBIN 12.1 G/DL (13.3-17.7); MEAN CORPUSCULAR HEMOGLOBIN 29 PG (25-34); WHITE BLOOD COUNT 5.1 10^3/uL (4.3-11.0)
[2019-09-02 12:55] LABS: HEMATOCRIT 39 % (40-54); LYMPHOCYTES % (AUTO) 29 % (12-44); MEAN CORPUSCULAR HGB CONC 31 G/DL (32-36); MEAN CORPUSCULAR VOLUME 95 FL (80-99); MONOCYTES % (AUTO) 9 % (0-12); NEUTROPHILS % (AUTO) 59 % (42-75); PLATELET COUNT 255 10^3/uL (130-400); RED CELL DISTRIBUTION WIDTH 16.3 % (10.0-14.5)
[2019-09-02 12:56] LABS: BASOPHILS % (AUTO) 0 % (0-10); EOSINOPHILS # (AUTO) 0.1 10^3/uL (0.0-0.3); EOSINOPHILS % (AUTO) 2 % (0-10); ERYTHROCYTE SEDIMENTATION RATE 42 MM/HR (0-30); LYMPHOCYTES # (AUTO) 1.5 X 10^3 (1.0-4.0); MONOCYTES # (AUTO) 0.5 X 10^3 (0.0-1.0)
[2019-09-02 12:57] LABS: BILIRUBIN,TOTAL 0.3 MG/DL (0.1-1.0); BUN/CREATININE RATIO 22; CALCIUM 9.2 MG/DL (8.5-10.1); CARBON DIOXIDE 28 MMOL/L (21-32); CHLORIDE 103 MMOL/L (98-107); CREATININE SERUM 0.77 MG/DL (0.60-1.30); GFR ESTIMATED > 60; GLUCOSE 104 MG/DL (70-105); POTASSIUM 4.1 MMOL/L (3.6-5.0); SODIUM 141 MMOL/L (135-145)
[2019-09-02 12:58] LABS: ALANINE AMINOTRANSFERASE 16 U/L (0-55); ALBUMIN 3.8 GM/DL (3.2-4.5); ALKALINE PHOSPHATASE 88 U/L (40-136); TOTAL PROTEIN 7.7 GM/DL (6.4-8.2)
[2019-09-02 12:59] LABS: VANCOMYCIN,TROUGH 14.4 UG/ML (10.0-20.0)
== END ==
LOC: IHC 11:12
PROVIDERS: ATTEND Pediatrics
DX: T87.89 Other complications of amputation stump (principal); L03.116 Cellulitis of left lower limb; M86.472 Chronic osteomyelitis with draining sinus, left ankle and foot
CPT/HCPCS: 36415; 80053; 80202; 85025; 85652; 86141

== ENCOUNTER → 2019-09-03 | Outpatient (CLI) | payer MEDICARE, OTHER | LOC: WOUNDCARE 12:17 | PROVIDERS: ATTEND Surgery | DX: E11.621 Type 2 diabetes mellitus with foot ulcer (principal); E11.42 Type 2 diabetes mellitus with diabetic polyneuropathy; L97.522 Non-pressure chronic ulcer of other part of left foot with fat layer exposed; L03.116 Cellulitis of left lower limb; M86.472 Chronic osteomyelitis with draining sinus, left ankle and foot | CPT/HCPCS: 11042 ==

== ENCOUNTER → 2019-09-09 | Outpatient (CLI) | payer MEDICARE, OTHER | LOC: WOUNDCARE 12:21 | PROVIDERS: ATTEND Surgery | DX: E11.621 Type 2 diabetes mellitus with foot ulcer (principal); E11.42 Type 2 diabetes mellitus with diabetic polyneuropathy; L97.522 Non-pressure chronic ulcer of other part of left foot with fat layer exposed; M86.472 Chronic osteomyelitis with draining sinus, left ankle and foot; L92.8 Other granulomatous disorders of the skin and subcutaneous tissue; Z87.891 Personal history of nicotine dependence; J44.9 Chronic obstructive pulmonary disease, unspecified; Z86.718 Personal history of other venous thrombosis and embolism; Z79.01 Long term (current) use of anticoagulants; Z92.3 Personal history of irradiation; Z85.46 Personal history of malignant neoplasm of prostate | CPT/HCPCS: 17250 ==

== ENCOUNTER → 2019-09-11 | Outpatient (CLI) | payer MEDICARE, OTHER ==
[2019-09-12 10:24] LABS: INR 1.7 (0.8-1.4); PROTHROMBIN TIME PATIENT 20.3 SEC (12.2-14.7)
== END ==
LOC: LAB FS 12:59
PROVIDERS: ATTEND Pediatrics
DX: T87.89 Other complications of amputation stump (principal); Z79.01 Long term (current) use of anticoagulants
CPT/HCPCS: 36415; 85610

== ENCOUNTER → 2019-09-17 | Outpatient (CLI) | payer MEDICARE, OTHER | LOC: WOUNDCARE 12:26 | PROVIDERS: ATTEND Surgery | DX: L97.522 Non-pressure chronic ulcer of other part of left foot with fat layer exposed (principal); E11.621 Type 2 diabetes mellitus with foot ulcer; E11.42 Type 2 diabetes mellitus with diabetic polyneuropathy; M86.472 Chronic osteomyelitis with draining sinus, left ankle and foot; Z87.891 Personal history of nicotine dependence; J44.9 Chronic obstructive pulmonary disease, unspecified; Z86.718 Personal history of other venous thrombosis and embolism; Z79.01 Long term (current) use of anticoagulants; Z92.3 Personal history of irradiation; Z85.46 Personal history of malignant neoplasm of prostate | CPT/HCPCS: 11042 ==

== ENCOUNTER → 2019-09-24 | Outpatient (CLI) | payer MEDICARE, OTHER | LOC: WOUNDCARE 12:21 | PROVIDERS: ATTEND Surgery | DX: E11.621 Type 2 diabetes mellitus with foot ulcer (principal); E11.52 Type 2 diabetes mellitus with diabetic peripheral angiopathy with gangrene; E11.42 Type 2 diabetes mellitus with diabetic polyneuropathy; I96 Gangrene, not elsewhere classified; L97.522 Non-pressure chronic ulcer of other part of left foot with fat layer exposed; L92.8 Other granulomatous disorders of the skin and subcutaneous tissue; M86.472 Chronic osteomyelitis with draining sinus, left ankle and foot | CPT/HCPCS: 17250 ==

== ENCOUNTER → 2019-10-01 | Outpatient (CLI) | payer MEDICARE, OTHER | LOC: WOUNDCARE 12:22 | PROVIDERS: ATTEND Surgery | DX: E11.621 Type 2 diabetes mellitus with foot ulcer (principal); E11.52 Type 2 diabetes mellitus with diabetic peripheral angiopathy with gangrene; E11.42 Type 2 diabetes mellitus with diabetic polyneuropathy; I96 Gangrene, not elsewhere classified; L97.522 Non-pressure chronic ulcer of other part of left foot with fat layer exposed; M86.472 Chronic osteomyelitis with draining sinus, left ankle and foot; L92.8 Other granulomatous disorders of the skin and subcutaneous tissue | CPT/HCPCS: 17250 ==

== ENCOUNTER → 2019-10-15 | Outpatient (CLI) | payer MEDICARE, OTHER | LOC: WOUNDCARE 12:23 | PROVIDERS: ATTEND Surgery | DX: E11.621 Type 2 diabetes mellitus with foot ulcer (principal); E11.42 Type 2 diabetes mellitus with diabetic polyneuropathy; L97.522 Non-pressure chronic ulcer of other part of left foot with fat layer exposed; M86.472 Chronic osteomyelitis with draining sinus, left ankle and foot; L92.8 Other granulomatous disorders of the skin and subcutaneous tissue | CPT/HCPCS: 99212 ==

== ENCOUNTER → 2020-02-07 | Outpatient (CLI) | payer MEDICARE, OTHER ==
--- NOTE | 2020-02-07 10:11 | Diagnostic Imaging Report ---
PROCEDURE: CT abdomen and pelvis without contrast. TECHNIQUE: Multiple contiguous axial images were obtained through the abdomen and pelvis without the use of intravenous contrast. Auto Exposure Controls were utilized during the CT exam to meet ALARA standards for radiation dose reduction. INDICATION: Hematuria for one week. No prior studies are available for comparison. The lung bases are clear. No discrete liver mass is identified. Gallbladder is unremarkable. No biliary duct dilatation is seen. Pancreas and spleen are unremarkable. No adrenal mass is detected. No renal calculi are identified. There is a circumscribed low-density lesion lower pole left kidney measuring 2.9 cm consistent with a cyst. No ureteral calculi or hydronephrosis is identified. The infrarenal abdominal aorta is mildly aneurysmal measuring up to 3.7 cm AP diameter. The small and large bowel loops are normal caliber. There is no obstruction. Bladder is decompressed. There appear to be radiation seed implants within the prostate gland. No abdominal or pelvic lymphadenopathy is identified. Bony structures demonstrate central compression deformity of L4 vertebral body which is likely chronic. IMPRESSION: 1. Left renal cyst. There is no evidence of urinary tract calculi or obstruction. 2. Infrarenal abdominal aortic aneurysm. 3. No acute abnormality is detected. Dictated by: Dictated on workstation # [id number]
== END ==
LOC: RAD FS 09:07
PROVIDERS: ATTEND Urology
DX: N28.1 Cyst of kidney, acquired (principal); R31.9 Hematuria, unspecified; I71.4 Abdominal aortic aneurysm, without rupture
CPT/HCPCS: 74176

== ENCOUNTER → 2022-03-09 | Outpatient (CLI) | payer MEDICARE, OTHER ==
--- NOTE | 2022-03-09 14:44 | Diagnostic Imaging Report ---
PROCEDURE: CT abdomen and pelvis without contrast. TECHNIQUE: Multiple contiguous axial images were obtained through the abdomen and pelvis without the use of intravenous contrast. Auto Exposure Controls were utilized during the CT exam to meet ALARA standards for radiation dose reduction. INDICATION: Gross hematuria. Correlation is made with prior CT 02/07/2020. The lung bases are clear. No focal liver mass is detected. There is no biliary duct dilatation. Gallbladder is unremarkable. Pancreas and spleen are unremarkable. No adrenal or renal solid mass is detected. There is a cyst in lower pole left kidney measuring 3.3 cm in size. No calculi or hydronephrosis is identified. There is an infrarenal abdominal aortic aneurysm measuring 3.8 cm AP diameter. Partially filled urinary bladder is unremarkable. Postoperative changes to the prostate gland are noted. There is no free fluid or fluid collection identified. Bowel loops are nonobstructed. The bony structures are nonacute. IMPRESSION: 1. No evidence of urinary tract calculi, obstruction or solid mass. There is a left lower pole renal cysts. 2. Infrarenal abdominal aortic aneurysm. 3. No acute features detected. Dictated by: Dictated on workstation # [id number]
== END ==
LOC: RAD FS 13:48
PROVIDERS: ATTEND Urology
DX: N28.1 Cyst of kidney, acquired (principal); I71.43 Infrarenal abdominal aortic aneurysm, without rupture
CPT/HCPCS: 74176

== ENCOUNTER 2022-10-03 16:03 | Emergency (ER) | payer MEDICARE, OTHER ==
[~2022-10-03] VITALS: Ht 182 cm; Wt 102.0 kg
--- NOTE | 2022-10-03 16:16 | ED General ---
General Chief Complaint: General Problems/Pain Stated Complaint: CHEST PAIN History of Present Illness Date Seen by Provider: Oct 03, 2022 Time Seen by Provider: 16:10 Initial Comments 87-year-old male with PMH of DM2/ HTN/ DVT on Coumadin 5 mg/amputation of toes, is sent here from urgent care with complaints of left-sided chest wall pain which has been going on for the past 2 to 3 days. Patient is concerned that he might be developing pneumonia, even though he does not have any cough or fever or chills. Patient has never had a cardiac event in the past. Patient is a non-smoker and quit smoking 20 years ago. Denies palpitations, shortness of breath, fever and chills, cough, abdominal pain, nausea and vomiting, diaphoresis. Allergies and Home Medications Allergies Coded Allergies: Penicillins (Unverified Allergy, Unknown, RASH, 05/22/19) Patient Home Medication List Home Medication List Reviewed: Yes Atorvastatin Calcium (Atorvastatin Calcium) 40 Mg Tablet, 40 MG PO HS Prescribed by: JULIA DENISE on 07/27/19 1126 Ceftriaxone Sodium (Ceftriaxone) 2 Gm/Vial Soln, 2 GM IV DAILY Prescribed by: JULIA DENISE on 07/26/19 1205 Metformin HCl (Metformin HCl ER) 500 Mg Tab.er.24, 500 MG PO DAILY Prescribed by: JULIA DENISE on 07/27/19 1126 Polyethylene Glycol 3350 (Miralax) 17 Gm Powd.pack, 17 GM PO DAILY PRN for CONSTIPATION-2ND LINE, (Reported) Entered as Reported by: KASIE GRANDE on 07/25/19 1022 Vancomycin HCl (Vancomycin HCl) 1.25 Gm Vial, 2.25 GM IV DAILY Prescribed by: JULIA DENISE on 07/26/19 1205 Warfarin Sodium (Warfarin Sodium) 5 Mg Tablet, 5 MG PO HS, (Reported) Entered as Reported by: KASIE GRANDE on 07/25/19 1018 Review of Systems Review of Systems Constitutional: no symptoms reported EENTM: no symptoms reported Respiratory: no symptoms reported Cardiovascular: see HPI, chest pain Gastrointestinal: no symptoms reported Genitourinary: no symptoms reported Musculoskeletal: no symptoms reported Skin: no symptoms reported Psychiatric/Neurological: No Symptoms Reported Hematologic/Lymphatic: No Symptoms Reported Immunological/Allergic: no symptoms reported Past Kikvuin-Zocsyz-Ohtbpo Hx Patient Social History Tobacco Use?: No Use of E-Cig and/or Vaping dev: No Alcohol Use?: No Pt feels they are or have been: Unable to obtain Seasonal Allergies Seasonal Allergies: No Past Medical History Surgeries: Yes Respiratory: Yes COPD Cardiac: Yes Deep Vein Thrombosis Neurological: No Genitourinary: Yes (CAN'T CONTROL) Prostate Problems Gastrointestinal: No Musculoskeletal: Yes Fractures Endocrine: No HEENT: Yes (CATARACTS REMOVED) Cataract Hearing Impairment: Hard of Hearing Cancer: Yes Prostate Did You Recieve Any Treatments: Yes What Type of Treatment Did You: Radiation Psychosocial: No Integumentary: Yes (Pt has very dry and scaly skin) Blood Disorders: Yes (ON COUMADIN R/T DVT) Family Medical History Cancer 03 FATHER 03 MOTHER Family history: Diabetes mellitus 09 SISTER No Family History of: Abdominal aortic aneurysm Congenital heart disease Family history: Allergy Family history: Alzheimer's disease Family history: Arthritis Family history: Asthma Family history: Breast disease Family history: Cardiovascular disease Family history: Coronary thrombosis Family history: Gastrointestinal disease Family history: Glaucoma Family history: Hypertension Family history: Thyroid disorder Hereditary disease History of - respiratory disease Kidney disease Myocardial infarction Parkinson's disease Seizure disorder Physical Exam Vital Signs Vital Signs - First Documented 10/03/22 16:11 Temp 36.0 Pulse 80 Resp 18 B/P (MAP) 172/89 (116) Pulse Ox 96 Capillary Refill : Height, Weight, BMI Height: 6'1.00" Weight: 249lbs. oz. 112.206265mr; 28.77 BMI Method: General Appearance: No Apparent Distress, WD/WN HEENT: PERRL/EOMI, Normal ENT Inspection Neck: Full Range of Motion, Normal Inspection, Non Tender Respiratory: Lungs Clear, Normal Breath Sounds, No Accessory Muscle Use, Other (Reproducible point tenderness present over the left sided fourth and fifth ribs along the costochondral junctions.) Cardiovascular: Regular Rate, Rhythm, No Edema Gastrointestinal: Normal Bowel Sounds, Non Tender, Soft Back: Normal Inspection, No CVA Tenderness Extremity: Normal Range of Motion Neurologic/Psychiatric: Alert, Oriented x3, No Motor/Sensory Deficits Skin: Normal Color Progress/Results/Core Measures Suspected Sepsis SIRS Temperature: Pulse: Respiratory Rate: Laboratory Tests 10/03/22 16:21: White Blood Count 6.0 Blood Pressure / Mean: Laboratory Tests 10/03/22 16:21: Creatinine 1.07, INR Comment 1.6H, Platelet Count 219, Total Bilirubin 0.3 Results/Orders Lab Results Laboratory Tests Test 10/03/22 16:21 10/03/22 16:30 Range/Units White Blood Count 6.0 4.3-11.0 10^3/uL Red Blood Count 4.24 L 4.30-5.52 10^6/uL Hemoglobin 12.9 L 13.3-17.7 g/dL Hematocrit 40 40-54 % Mean Corpuscular Volume 94 80-99 fL Mean Corpuscular Hemoglobin 30 25-34 pg Mean Corpuscular Hemoglobin Concent 33 32-36 g/dL Red Cell Distribution Width 14.2 10.0-14.5 % Platelet Count 219 130-400 10^3/uL Mean Platelet Volume 9.8 9.0-12.2 fL Immature Granulocyte % (Auto) 0 % Neutrophils (%) (Auto) 55 42-75 % Lymphocytes (%) (Auto) 33 12-44 % Monocytes (%) (Auto) 9 0-12 % Eosinophils (%) (Auto) 2 0-10 % Basophils (%) (Auto) 0 0-10 % Neutrophils # (Auto) 3.3 1.8-7.8 10^3/uL Lymphocytes # (Auto) 2.0 1.0-4.0 10^3/uL Monocytes # (Auto) 0.5 0.0-1.0 10^3/uL Eosinophils # (Auto) 0.1 0.0-0.3 10^3/uL Basophils # (Auto) 0.0 0.0-0.1 10^3/uL Immature Granulocyte # (Auto) 0.0 0.0-0.1 10^3/uL Prothrombin Time 19.2 H 12.2-14.7 SEC INR Comment 1.6 H 0.8-1.4 Activated Partial Thromboplast Time 39 H 24-35 SEC D-Dimer 0.46 0.00-0.49 UG/ML Sodium Level 141 135-145 MMOL/L Potassium Level 4.4 3.6-5.0 MMOL/L Chloride Level 106 98-107 MMOL/L Carbon Dioxide Level 25 21-32 MMOL/L Anion Gap 10 5-14 MMOL/L Blood Urea Nitrogen 20 H 7-18 MG/DL Creatinine 1.07 0.60-1.30 MG/DL Estimat Glomerular Filtration Rate 68 BUN/Creatinine Ratio 19 Glucose Level 145 H 70-105 MG/DL Calcium Level 8.3 L 8.5-10.1 MG/DL Corrected Calcium 8.4 L 8.5-10.1 MG/DL Total Bilirubin 0.3 0.1-1.0 MG/DL Aspartate Amino Transf (AST/SGOT) 15 5-34 U/L Alanine Aminotransferase (ALT/SGPT) 12 0-55 U/L Alkaline Phosphatase 92 40-136 U/L Troponin I < 0.30 <0.30 NG/ML Pro-B-Type Natriuretic Peptide 589.9 H <450.0 PG/ML Total Protein 7.9 6.4-8.2 GM/DL Albumin 3.9 3.2-4.5 GM/DL Urine Color YELLOW Urine Clarity CLEAR Urine pH 6.0 5-9 Urine Specific [place] 1.025 H 1.016-1.022 Urine Protein TRACE H NEGATIVE Urine Glucose (UA) NEGATIVE NEGATIVE Urine Ketones TRACE H NEGATIVE Urine Nitrite NEGATIVE NEGATIVE Urine Bilirubin NEGATIVE NEGATIVE Urine Urobilinogen 0.2 < = 1.0 MG/DL Urine Leukocyte Esterase NEGATIVE NEGATIVE Urine RBC (Auto) TRACE-I H NEGATIVE Urine RBC 2-5 H /HPF Urine WBC NONE /HPF Urine Squamous Epithelial Cells 2-5 /HPF Urine Crystals NONE /LPF Urine Bacteria NEGATIVE /HPF Urine Casts NONE /LPF Urine Mucus NEGATIVE /LPF Urine Culture Indicated NO My Orders Orders - ALEXA FABIAN MD Continuous Ekg Monitoring (10/03/22 16:16) Ekg Tracing (10/03/22 16:16) Ribs/Bilateral With Chest (10/03/22 16:17) Cbc With Automated Diff (10/03/22 16:18) Comprehensive Metabolic Panel (10/03/22 16:18) Fibrin Degradation Products (10/03/22 16:18) Protime With Inr (10/03/22 16:18) Partial Thromboplastin Time (10/03/22 16:18) Ua Culture If Indicated (10/03/22 16:18) Probnp Fs (10/03/22 16:18) Troponin I Fs (10/03/22 16:18) Aspirin Chewable Tablet (Baby Aspirin Ch (10/03/22 16:26) Vital Signs/I&O 10/03/22 16:11 Temp 36.0 Pulse 80 Resp 18 B/P (MAP) 172/89 (116) Pulse Ox 96 Capillary Refill : Progress Note : Progress Note 1. ACUTE COSTOCHONDRITIS/ ACS RULED OUT: - CXR: No acute findings - EKG: non-ischemic/ Troponin - CBC/ CMP: Unremarkable - D-dimer/ coag panel: unremarkable - ASA 324mg STAT -Patient's chest pain is due to acute costochondritis, confirmed by clinical exam and negative ACS work-up. -Advised sucv-ono-riazeop Lidoderm patch -Advised Tylenol as needed for pain every 4 hours. -Follow-up with PCP within the next 3 to 7 days -The patient was seen in the ED, and treated appropriately to presentation at a specific point in time. Patient is informed that there is a possibility that disease and illness can evolve and change in acuity rapidly or slowly after patient is discharged from the ER. Precautionary advice given to the patient for immediate return to ER if symptoms worsen or do not resolve, and to seek emergency care sooner rather than later. Pt also advised on the importance of PCP follow up and compliance with management and follow up plan with PCP and/or specialist, as this is part of the management plan. Pt verbally expressed understanding. Diagnostic Imaging Diagonstic Imaging: Xray Plain Films/CT/US/NM/MRI: chest Comments [facility], [place] NAME: ANGÉLICA BAE [facility] REC#: [id number] PT STATUS: REG ER : 1935 PHYSICIAN: ALEXA FABIAN MD ADMIT DATE: 10/03/22/ER FS Signed Date of Exam:10/03/22 RIBS/BILATERAL WITH CHEST Patient History: Left-sided chest and rib pain. Technique: 7 views of the chest and bilateral ribs Comparison: 05/08/2013. 08/06/2019. FINDINGS: The lung volumes are normal. No focal consolidation is seen. No large pleural effusion or pneumothorax is seen. The cardiomediastinal silhouette is normal in size and contour. No acute osseous abnormality is seen. No acute displaced rib fractures are seen bilaterally. IMPRESSION: 1. No acute process in the chest. 2. No acute displaced rib fractures bilaterally. Dictated by: Dictated on workstation # [id number] Dict: 10/03/221642 Trans: 10/03/221645 [facility] [id number] Interpreted by: LEESA CARVALHO DO Electronically signed by: LEESA CARVALHO DO 10/03/221645 Departure Impression Primary Impression: Acute costochondritis Disposition: HOME, SELF-CARE Condition: Stable Departure-Patient Inst. Referrals: ALANNAH LARA MD (PCP) Primary Care Physician Patient Instructions: Costochondritis (DC) Add. Discharge Instructions: -Advised [id number] Lidoderm patch -Advised Tylenol as needed for pain every 4 hours. -Follow-up with PCP within the next 3 to 7 days All discharge instructions reviewed with patient and/or family. Voiced understanding. ALEXA FABIAN MD Oct 03, 2022 16:16
[2022-10-03 16:25] LABS: BASOPHILS % (AUTO) 0 % (0-10); EOSINOPHILS # (AUTO) 0.1 10^3/uL (0.0-0.3); EOSINOPHILS % (AUTO) 2 % (0-10); HEMATOCRIT 40 % (40-54); HEMOGLOBIN 12.9 g/dL (13.3-17.7); LYMPHOCYTES % (AUTO) 33 % (12-44); MEAN CORPUSCULAR HEMOGLOBIN 30 pg (25-34); MEAN CORPUSCULAR HGB CONC 33 g/dL (32-36); MEAN CORPUSCULAR VOLUME 94 fL (80-99); MEAN PLATELET VOLUME 9.8 fL (9.0-12.2); MONOCYTES # (AUTO) 0.5 10^3/uL (0.0-1.0); MONOCYTES % (AUTO) 9 % (0-12); NEUTROPHILS # (AUTO) 3.3 10^3/uL (1.8-7.8); NEUTROPHILS % (AUTO) 55 % (42-75); PLATELET COUNT 219 10^3/uL (130-400)
[2022-10-03] MEDS ORDERED: ASPIRIN 81 MG CHEW (CHILDREN'S ASA) PO STA (16:26)
--- NOTE | 2022-10-03 16:45 | Diagnostic Imaging Report ---
Patient History: Left-sided chest and rib pain. Technique: 7 views of the chest and bilateral ribs Comparison: 05/08/2013. 08/06/2019. FINDINGS: The lung volumes are normal. No focal consolidation is seen. No large pleural effusion or pneumothorax is seen. The cardiomediastinal silhouette is normal in size and contour. No acute osseous abnormality is seen. No acute displaced rib fractures are seen bilaterally. IMPRESSION: 1. No acute process in the chest. 2. No acute displaced rib fractures bilaterally. Dictated by: Dictated on workstation # [id number]
[2022-10-03 16:48] LABS: FIBRIN DEGRADATION PRODUCTS 0.46 UG/ML (0.00-0.49); INR 1.6 (0.8-1.4); PROTHROMBIN TIME PATIENT 19.2 SEC (12.2-14.7)
[2022-10-03 16:54] LABS: ALANINE AMINOTRANSFERASE 12 U/L (0-55); ALBUMIN 3.9 GM/DL (3.2-4.5); ALKALINE PHOSPHATASE 92 U/L (40-136); BILIRUBIN,TOTAL 0.3 MG/DL (0.1-1.0); BUN/CREATININE RATIO 19; CALCIUM 8.3 MG/DL (8.5-10.1); CARBON DIOXIDE 25 MMOL/L (21-32); CHLORIDE 106 MMOL/L (98-107); CREATININE SERUM 1.07 MG/DL (0.60-1.30); GFR ESTIMATED 68; GLUCOSE 145 MG/DL (70-105); POTASSIUM 4.4 MMOL/L (3.6-5.0); SODIUM 141 MMOL/L (135-145); TOTAL PROTEIN 7.9 GM/DL (6.4-8.2)
[2022-10-03 16:57] LABS: BILIRUBIN,URINE NEGATIVE (NEGATIVE); CLARITY,URINE CLEAR; COLOR,URINE YELLOW; GLUCOSE, URINE (UA) NEGATIVE (NEGATIVE); KETONES,URINE TRACE (NEGATIVE); LEUKOCYTE ESTERASE ,URINE NEGATIVE (NEGATIVE); NITRITE,URINE NEGATIVE (NEGATIVE); PROTEIN,URINE TRACE (NEGATIVE)
[2022-10-03 17:05] LABS: BACTERIA,URINE NEGATIVE /HPF
[2022-10-03 17:20] VITALS: BP 127/75
== END 2022-10-03 17:20 | disposition home or self-care (01) ==
LOC: EDUNIT# 16:03 → ER FS 16:12
DX: M94.0 Chondrocostal junction syndrome [Tietze] (principal); Z86.718 Personal history of other venous thrombosis and embolism; Z79.01 Long term (current) use of anticoagulants
CPT/HCPCS: 36415; 71111; 80053; 81000; 83880; 84484; 85025; 85379; 85610; 85730; 93005; 93041